=== PATIENT | female | born 1935 | race Caucasian/White ===

== ENCOUNTER 2017-05-28 15:38 | Observation (INO) | payer OTHER, MEDICARE ==
--- NOTE | 2017-05-28 15:50 | PDOC ---
History of Present Illness - History of Present Illness Initial Comments: 05/28/17 15:49 81 yo F with h/o HTN, HLD, HCV, prior GI hemorrhage (2015), and diverticulosis who presents with vertigo. Per patient she was walking downstairs and experienced episode of weakness, and swaying sensation with no LOC. She reports controlled fall to chair and controlled sliding to ground, where she layed there for 5 minutes before family arrived. States that she was disoriented and alert. Deny convulsions, tongue biting, LOC, urinary incontinence. Vertigo symptoms triggered with posterior head movement. Per patient family she has had increased confusion over the past two months and dark colored stools, and increased urination. Denies BRBPR.Deny N/V, fevers/chills, CP, SOB, diarrhea, constipation, FAITH, tinnitus,. Denies h/o CAD/CT, TIA/CVA, stent placement or CABG. Normally ambulates with walker and assistance with recent change in gait. On iron supplementation. <Praveen Vaughn - Last Filed: 05/28/17 19:33> <Jeffry Roberts - Last Filed: 05/28/17 19:51> <Alexandru Vergara - Last Filed: 05/28/17 21:48> - General Chief Complaint: Altered Mental Status Stated Complaint: ALTERED MENTAL STATUS Time Seen by Provider: 05/28/17 15:44 Past History - Past Medical History Anemia: Yes Asthma: Yes (MILD) Cancer: No Cardiac Disorders: No CVA: No COPD: No CHF: No Dementia: No Diabetes: No GI Disorders: Yes (REFLUX) Disorders: No HTN: Yes Hypercholesterolemia: Yes Liver Disease: Yes (HEPATITIS -C) Seizures: No Thyroid Disease: Yes (removed) - Surgical History Abdominal Surgery: No Appendectomy: Yes Cardiac Surgery: No Cholecystectomy: No Lung Surgery: No Neurologic Surgery: Yes (EPIDURAL-CRANIOTOMY) Orthopedic Surgery: Yes (ARTHROSCOPY RIGHT KNEE) - Immunization History Td Vaccination: No (unknown) TDAP Vaccination: No Immunization Up to Date: No - Suicide/Smoking/Psychosocial Hx Smoking Status: No Smoking History: Never smoked Years of Tobacco Use: 0 Number of Cigarettes Smoked Daily: 0 Cigars Per Day: 0 Hx Alcohol Use: No Drug/Substance Use Hx: No Substance Use Type: None Hx Substance Use Treatment: No <Praveen Vaughn - Last Filed: 05/28/17 19:33> <Jeffry Roberts - Last Filed: 05/28/17 19:51> <Alexandru Vergara - Last Filed: 05/28/17 21:48> - Past Medical History Allergies/Adverse Reactions: Allergies Allergy/AdvReac Type Severity Reaction Status Date / Time Penicillins Allergy Unknown Verified 05/28/17 15:53 codeine [Codeine] Allergy Verified 05/28/17 15:53 Home Medications: Ambulatory Orders Simvastatin [Zocor] 20 mg PO HS #0 tablet 06/03/11 Fluticasone/Vilanterol [Breo Ellipta 100-25 Mcg INH] 1 each IH DAILY 12/02/15 Valsartan [Diovan] 40 mg PO DAILY #30 tablet 12/05/15 Potassium Chloride 20 meq PO BID 03/05/16 Review of Systems - Review of Systems Comments:: 05/28/17 15:48 GENERAL/CONSTITUTIONAL: Confusion. No fever or chills. No weakness. HEAD, EYES, EARS, NOSE AND THROAT: No change in vision. No ear pain or discharge. No sore throat.- CARDIOVASCULAR: No chest pain or shortness of breath RESPIRATORY: No cough, wheezing, or hemoptysis. GASTROINTESTINAL: No nausea, vomiting, diarrhea or constipation. GENITOURINARY: Increased urination. No dysuria. MUSCULOSKELETAL: No joint or muscle swelling or pain. No neck or back pain. SKIN: No rash NEUROLOGIC: +vertigo. No headache, loss of consciousness, or change in strength /sensation. ENDOCRINE: No increased thirst. No abnormal weight change HEMATOLOGIC/LYMPHATIC: No anemia, easy bleeding, or history of blood clots. ALLERGIC/IMMUNOLOGIC: No hives or skin allergy. <Maldonado Vaughnson - Last Filed: 05/28/17 19:33> *Physical Exam - Physical Exam Comments: 05/28/17 15:48 GENERAL: Awake, alert, and fully oriented, in no acute distress HEAD: No signs of trauma, normocephalic, atraumatic EYES: PERRLA, EOMI, sclera anicteric, conjunctiva clear ENT: Auricles normal inspection, hearing grossly normal, nares patent, oropharynx clear without exudates. Moist mucosa NECK: Normal ROM, supple, no lymphadenopathy, JVD, or masses LUNGS: No distress, speaks full sentences, clear to auscultation bilaterally HEART: Regular rate and rhythm, normal S1 and S2, no murmurs, rubs or gallops, peripheral pulses normal and equal bilaterally. ABDOMEN: Soft, nontender, normoactive bowel sounds. No guarding, no rebound. No masses EXTREMITIES : Normal inspection, Normal range of motion, no edema. No clubbing or cyanosis. NEUROLOGICAL: Cranial nerves II through XII grossly intact. Normal speech, normal gait, no focal sensorimotor deficits. Normal TONY. Absent dysmetria on FTN. SKIN: Warm, Dry, normal turgor, no rashes or lesions noted. <Praveen Vaughn - Last Filed: 05/28/17 19:33> - Vital Signs Last Vital Signs Temp Pulse Resp BP Pulse Ox 98.7 F 87 17 169/95 100 05/28/17 16:04 05/28/17 19:12 05/28/17 19:12 05/28/17 19:12 05/28/17 19:12 <Jeffry Roberts - Last Filed: 05/28/17 19:51> - Vital Signs Last Vital Signs Temp Pulse Resp BP Pulse Ox 98.7 F 87 17 165/90 100 05/28/17 16:04 05/28/17 19:12 05/28/17 19:12 05/28/17 20:00 05/28/17 19:12 <Alexandru Vergara - Last Filed: 05/28/17 21:48> ED Treatment Course - LABORATORY CBC & Chemistry Diagram: 05/28/17 17:00 05/28/17 17:00 <Praveen Vaughn - Last Filed: 05/28/17 19:33> - LABORATORY CBC & Chemistry Diagram: 05/28/17 17:00 05/28/17 17:00 - ADDITIONAL ORDERS Additional order review: Laboratory Results 05/28/17 05/28/17 05/28/17 17:50 17:00 17:00 PT with INR INR Sodium 135 L Potassium 4.3 Chloride 101 Carbon Dioxide 26 Anion Gap 8 BUN 10 Creatinine 0.8 Creat Clearance w eGFR > 60 POC Glucometer Random Glucose 98 Calcium 9.1 Total Bilirubin 0.4 D AST 12 L ALT 27 Alkaline Phosphatase 82 Total Protein 7.9 Albumin 3.9 Urine Color Yellow Urine Appearance Slcloudy Urine pH 5.0 Ur Specific [place] 1.017 Urine Protein Negative Urine Glucose (UA) Negative Urine Ketones Negative Urine Blood 1+ H Urine Nitrite Negative Urine Bilirubin Negative Urine Urobilinogen Negative Ur Leukocyte Esterase Negative Urine WBC (Auto) 3 Urine RBC (Auto) 1 Ur Epithelial Cells Few Urine Bacteria Few Urine Mucus Few Stool Occult Blood Blood Type O NEGATIVE Antibody Screen Negative 05/28/17 05/28/17 05/28/17 17:00 16:45 15:48 PT with INR 11.70 INR 1.04 Sodium Potassium Chloride Carbon Dioxide Anion Gap BUN Creatinine Creat Clearance w eGFR POC Glucometer [id number] Random Glucose Calcium Total Bilirubin AST ALT Alkaline Phosphatase Total Protein Albumin Urine Color Urine Appearance Urine pH Ur Specific [place] Urine Protein Urine Glucose (UA) Urine Ketones Urine Blood Urine Nitrite Urine Bilirubin Urine Urobilinogen Ur Leukocyte Esterase Urine WBC (Auto) Urine RBC (Auto) Ur Epithelial Cells Urine Bacteria Urine Mucus Stool Occult Blood Negative Blood Type Antibody Screen 05/28/17 05/28/17 17:00 15:48 RBC 5.01 MCV 88.0 MCHC 32.6 RDW 17.4 H D MPV 7.9 Neutrophils % 72.7 D Lymphocytes % 17.0 D Monocytes % 9.1 Eosinophils % 0.4 D Basophils % 0.8 POC Glucometer [phone] - Medications Given in the ED: ED Medications Discontinued Medications Generic Name Dose Route Start Last Admin Trade Name Lewisq PRN Reason Stop Dose Admin Amlodipine Besylate 10 mg 05/28/17 17:34 05/28/17 17:51 Norvasc - PO 05/28/17 17:35 10 mg ONCE ONE Administration Labetalol HCl 100 mg 05/28/17 18:09 05/28/17 19:12 Normodyne - PO 05/28/17 18:10 100 mg ONCE ONE Administration Meclizine HCl 25 mg 05/28/17 16:14 05/28/17 16:17 Antivert - PO 05/28/17 16:15 25 mg ONCE ONE Administration <Jeffry Roberts - Last Filed: 05/28/17 19:51> - LABORATORY CBC & Chemistry Diagram: 05/28/17 17:00 05/28/17 17:00 - ADDITIONAL ORDERS Additional order review: Laboratory Results 05/28/17 05/28/17 05/28/17 20:00 17:50 17:00 PT with INR INR Sodium Potassium Chloride Carbon Dioxide Anion Gap BUN Creatinine Creat Clearance w eGFR POC Glucometer Random Glucose Calcium Magnesium 2.0 Total Bilirubin AST ALT Alkaline Phosphatase Total Protein Albumin Triglycerides 111 Cholesterol 163 Total LDL Cholesterol 104 H HDL Cholesterol 43 Urine Color Yellow Urine Appearance Slcloudy Urine pH 5.0 Ur Specific [place] 1.017 Urine Protein Negative Urine Glucose (UA) Negative Urine Ketones Negative Urine Blood 1+ H Urine Nitrite Negative Urine Bilirubin Negative Urine Urobilinogen Negative Ur Leukocyte Esterase Negative Urine WBC (Auto) 3 Urine RBC (Auto) 1 Ur Epithelial Cells Few Urine Bacteria Few Urine Mucus Few Stool Occult Blood Blood Type O NEGATIVE Antibody Screen Negative 05/28/17 05/28/17 05/28/17 17:00 17:00 16:45 PT with INR 11.70 INR 1.04 Sodium 135 L Potassium 4.3 Chloride 101 Carbon Dioxide 26 Anion Gap 8 BUN 10 Creatinine 0.8 Creat Clearance w eGFR > 60 POC Glucometer Random Glucose 98 Calcium 9.1 Magnesium Total Bilirubin 0.4 D AST 12 L ALT 27 Alkaline Phosphatase 82 Total Protein 7.9 Albumin 3.9 Triglycerides Cholesterol Total LDL Cholesterol HDL Cholesterol Urine Color Urine Appearance Urine pH Ur Specific [place] Urine Protein Urine Glucose (UA) Urine Ketones Urine Blood Urine Nitrite Urine Bilirubin Urine Urobilinogen Ur Leukocyte Esterase Urine WBC (Auto) Urine RBC (Auto) Ur Epithelial Cells Urine Bacteria Urine Mucus Stool Occult Blood Negative Blood Type Antibody Screen 05/28/17 15:48 PT with INR INR Sodium Potassium Chloride Carbon Dioxide Anion Gap BUN Creatinine Creat Clearance w eGFR POC Glucometer [phone] Random Glucose Calcium Magnesium Total Bilirubin AST ALT Alkaline Phosphatase Total Protein Albumin Triglycerides Cholesterol Total LDL Cholesterol HDL Cholesterol Urine Color Urine Appearance Urine pH Ur Specific [place] Urine Protein Urine Glucose (UA) Urine Ketones Urine Blood Urine Nitrite Urine Bilirubin Urine Urobilinogen Ur Leukocyte Esterase Urine WBC (Auto) Urine RBC (Auto) Ur Epithelial Cells Urine Bacteria Urine Mucus Stool Occult Blood Blood Type Antibody Screen 05/28/17 05/28/17 17:00 15:48 RBC 5.01 MCV 88.0 MCHC 32.6 RDW 17.4 H D MPV 7.9 Neutrophils % 72.7 D Lymphocytes % 17.0 D Monocytes % 9.1 Eosinophils % 0.4 D Basophils % 0.8 POC Glucometer [id number] - Medications Given in the ED: ED Medications Discontinued Medications Generic Name Dose Route Start Last Admin Trade Name Freq PRN Reason Stop Dose Admin Amlodipine Besylate 10 mg 05/28/17 17:34 05/28/17 17:51 Norvasc - PO 05/28/17 17:35 10 mg ONCE ONE Administration Labetalol HCl 100 mg 05/28/17 18:09 05/28/17 19:12 Normodyne - PO 05/28/17 18:10 100 mg ONCE ONE Administration Meclizine HCl 25 mg 05/28/17 16:14 05/28/17 16:17 Antivert - PO 05/28/17 16:15 25 mg ONCE ONE Administration Valsartan 40 mg 05/28/17 19:30 05/28/17 20:00 Diovan - PO 05/28/17 19:31 40 mg ONCE ONE Administration <Alexandru Vergara - Last Filed: 05/28/17 21:48> Medical Decision Making - Medical Decision Making 05/28/17 16:33 81 yo F with h/o HTN, HLD, HCV, prior GI hemorrhage (2014), and diverticulosis who presents with vertiginous episode and controlled fall following ambulation down stairs.Pt. describes episode of weakness, and swaying sensation with no asx. LOC. Family reports change in mental status/disorientation upon arriving to patient laying on floor. Deny convulsions, tongue biting, LOC, urinary incontinence. + increased confusion over the past two months, dark colored stools, and increased urination.Deny N/V, fevers/chills, CP, SOB, BRBPR, diarrhea, constipation, FAITH, tinnitus. Denies h/o CAD/CT, TIA/CVA, stent placement or CABG. On iron supplementation. Physical exam with no focal neurological deficits, or nystagmus and normal cardiac/pulmonary findings. Patient arrives hypertensive with BP 193/126. Possible causes of Pt. AMS and worsening vertigo include electrolyte abnormality, hypoglycemia, cystitis, acute blood loss anemia/GI bleed. Moderate suspicion of central cause of vertigo such as CVA/TIA d/t acute and prolonged confusion, and risk factors. ED course: CBC, CMP, UA, Cardiac Pro, FOBT EKG CXR Norvasc 10 mg. 05/28/17 17:25 NIHSS:0 05/28/17 17:38 CBC: Unremarkable 05/28/17 17:38 POC Glucose: 157 05/28/17 18:11 CMP: Unremarkable FOBT:Negative UA: Negative 05/28/17 18:57 CT HEAD: Unremarkable. No acute intracranial pathology. Will admit to tele/obs. <Praveen Vaughn - Last Filed: 05/28/17 19:33> - Medical Decision Making 05/28/17 21:[address] Bettina Santillan regarding this patient. <Alexandru Vergara - Last Filed: 05/28/17 21:48> *DC/Admit/Observation/Transfer - Discharge Dispostion Admit: Yes <Praveen Vaughn - Last Filed: 05/28/17 19:33> - Discharge Dispostion Admit: Yes <Jeffry Roberts - Last Filed: 05/28/17 19:51> <Alexandru Vergara - Last Filed: 05/28/17 21:48> Diagnosis at time of Disposition: Syncope Qualifiers: Syncope type: unspecified Qualified Code(s): R55 - Syncope and collapse - Referrals Referrals: Michael Mariano MD [Primary Care Provider] -
[2017-05-28] MEDS ORDERED: MECLIZINE HCL 25 MG TABLET (FP) PO ONE (16:14)
[2017-05-28] MEDS ORDERED: MECLIZINE HCL 25 MG TABLET (FP) ONE (16:19)
[2017-05-28 17:07] LABS: BASO % 0.8 % (0-2.0); EOS % 0.4 % (0-4.5); HEMATOCRIT 44.1 % (32.4-45.2); HEMOGLOBIN 14.4 GM/dL (10.7-15.3); MCH 28.7 pg (25.7-33.7); MCHC 32.6 g/dl (32.0-36.0); MEAN PLT VOLUME 7.9 fl (7.5-11.1); MONO % 9.1 % (3.8-10.2); NEUT % 72.7 % (42.8-82.8); PLATELET COUNT 274 K/MM3 (134-434); RBC 5.01 M/mm3 (3.60-5.2); RDW 17.4 % (11.6-15.6)
--- NOTE | 2017-05-28 17:17 | PDOC ---
Attending Attestation - Resident Resident Name: RoderickPraveen - HPI HPI: 05/28/17 17:19 Pt presents to the ED complaining of an episode of generalized weakness accompanied by confusion. Patient and her report that she was awake, but was unable to repeat her children's names. She was able to speak and did not seem to have other word finding difficulties, although her also reports that she was briefly slurring her speech. Patient does not appear to have had any focal weakness. Symptoms resolved spontaneously in the ambulance. - Physicial Exam PE: 05/28/17 17:27 Agree with resident exam. PAtient appears neurologically intact at this time, and is alert, oriented x 3 and speaking in complete sentences with fluent, clear speech. - Medical Decision Making 05/28/17 17:27 Pt presents to the ED complaining of an episode of confusion
[2017-05-28 17:30] LABS: ALBUMIN 3.9 g/dl (3.4-5.0); ANION GAP 8 (8-16); BILIRUBIN,TOTAL 0.4 mg/dL (0.2-1.0); BLOOD UREA NITROGEN 10 mg/dL (7-18); CALCIUM 9.1 mg/dL (8.5-10.1); CHLORIDE 101 mmol/L (98-107); CO2 26 mmol/L (21-32); CREATININE 0.8 mg/dL (0.55-1.02); GLUCOSE,RANDOM 98 mg/dL (74-106); POTASSIUM 4.3 mmol/L (3.5-5.1); SGOT/AST 12 U/L (15-37); SGPT/ALT 27 U/L (12-78); SODIUM 135 mmol/L (136-145)
[2017-05-28 17:31] LABS: ALK PHOS 82 U/L (45-117); TOT PROT 7.9 g/dl (6.4-8.2)
[2017-05-28 17:32] LABS: INR 1.04 (0.82-1.09); PROTHROMBIN TIME (PATIENT) 11.7 SEC (9.98-11.88)
[2017-05-28] MEDS ORDERED: amLODIPine BESYLATE 10 MG TABLET (FP) PO ONE (17:34)
[2017-05-28] MEDS ORDERED: amLODIPine BESYLATE 5 MG TABLET (FP) ONE (17:52)
[2017-05-28 18:00] LABS: URINE APPEARANCE SLCLOUDY; URINE BILIRUBIN NEGATIVE (NEGATIVE); URINE BLOOD 1+ (NEGATIVE); URINE COLOR YELLOW; URINE GLUCOSE (UA) NEGATIVE (NEGATIVE); URINE KETONE NEGATIVE (NEGATIVE); URINE LEUK ESTERASE NEGATIVE (NEGATIVE); URINE NITRITE NEGATIVE (NEGATIVE); URINE PROTEIN NEGATIVE (NEGATIVE); URINE UROBILINOGEN NEGATIVE mg/dL (0.2-1.0)
[2017-05-28 18:06] LABS: EPI CELLS FEW /HPF (FEW); URINE BACTERIA FEW /hpf (NONE SEEN); URINE MUCUS FEW
[2017-05-28] MEDS ORDERED: LABETALOL HCL 100 MG TABLET (FP) PO ONE (18:09)
[2017-05-28] MEDS ORDERED: VALSARTAN 40 MG TABLET (FP) PO ONE (19:30)
[2017-05-28] MEDS ORDERED: VALSARTAN 80 MG TABLET (UD) ONE (19:44)
[2017-05-28] MEDS ORDERED: ACETAMINOPHEN 325 MG TABLET (FP) PO PRN (19:57)
[2017-05-28] MEDS ORDERED: ONDANSETRON *ODT* 4 MG TABLET ONE (21:58)
[2017-05-28] MEDS: POTASSIUM CHLORIDE TABS 20 MEQ TABLET.ER (FP) PO SCH (22:08)
[2017-05-28] MEDS: ATORVASTATIN CA 10 MG TABLET (FP) PO SCH (22:09)
[2017-05-28] MEDS ORDERED: ATORVASTATIN CA 40 MG TABLET (FP) ONE (22:34)
[2017-05-28] MEDS ORDERED: POTASSIUM CHLORIDE TABS 20 MEQ TABLET.ER (FP) PO ONE (22:34)
[2017-05-28] MEDS ORDERED: ONDANSETRON 4 MG/2 ML VIAL IVPUSH ONE (22:37)
[2017-05-29 09:15] LABS: BASO % 0.6 % (0-2.0); EOS % 1.1 % (0-4.5); HEMATOCRIT 40.9 % (32.4-45.2); HEMOGLOBIN 13.3 GM/dL (10.7-15.3); LYMPH % 31.6 % (8-40); MCH 28.7 pg (25.7-33.7); MCHC 32.6 g/dl (32.0-36.0); MEAN PLT VOLUME 7.9 fl (7.5-11.1); MONO % 11.9 % (3.8-10.2); NEUT % 54.8 % (42.8-82.8); PLATELET COUNT 266 K/MM3 (134-434); RBC 4.65 M/mm3 (3.60-5.2); RDW 18.4 % (11.6-15.6); WHITE BLOOD COUNT 6.7 K/mm3 (4.0-10.0)
[2017-05-29 09:35] LABS: ANION GAP 9 (8-16); BLOOD UREA NITROGEN 9 mg/dL (7-18); CALCIUM 8.7 mg/dL (8.5-10.1); CHLORIDE 101 mmol/L (98-107); CO2 26 mmol/L (21-32); GLUCOSE,RANDOM 98 mg/dL (74-106); POTASSIUM 4.1 mmol/L (3.5-5.1); SODIUM 136 mmol/L (136-145)
[2017-05-29 09:47] LABS: CREATININE 0.7 mg/dL (0.55-1.02)
[2017-05-29] MEDS ORDERED: VALSARTAN 40 MG TABLET (FP) PO SCH (10:00)
[2017-05-29] MEDS: POTASSIUM CHLORIDE TABS 20 MEQ TABLET.ER (FP) PO SCH ×2 (12:05→22:24)
--- NOTE | 2017-05-29 12:32 | CONSULT ---
Consult - text type - Consultation Consultation Note: Neurology History of Present Illness 81 yo F with h/o HTN, HLD, HCV, prior GI hemorrhage (2015), and diverticulosis who presents with vertigo. Per notes, patient she was walking downstairs and experienced episode of weakness, and swaying sensation with no LOC. She reports controlled fall to chair and controlled sliding to ground, where she layed there for 5 minutes before family arrived. States that she was disoriented and alert. Deny convulsions, tongue biting, LOC, urinary incontinence. Vertigo symptoms triggered with posterior head movement. Per patient family she has had increased confusion over the past two months and dark colored stools, and increased urination. Denies BRBPR. She feels better today but does not feel fully well yet. CT head completed, awaiting final read. Will obtain MRI brain to rule out infarct. Discussed with family at bedside and in agreement. Past History - Past Medical History Anemia: Yes Asthma: Yes (MILD) Cancer: No Cardiac Disorders: No CVA: No COPD: No CHF: No Dementia: No Diabetes: No GI Disorders: Yes (REFLUX) Disorders: No HTN: Yes Hypercholesterolemia: Yes Liver Disease: Yes (HEPATITIS -C) Seizures: No Thyroid Disease: Yes (removed) - Surgical History Abdominal Surgery: No Appendectomy: Yes Cardiac Surgery: No Cholecystectomy: No Lung Surgery: No Neurologic Surgery: Yes (EPIDURAL-CRANIOTOMY) Orthopedic Surgery: Yes (ARTHROSCOPY RIGHT KNEE) - Immunization History Td Vaccination: No (unknown) TDAP Vaccination: No Immunization Up to Date: No - Suicide/Smoking/Psychosocial Hx Smoking Status: No Smoking History: Never smoked Years of Tobacco Use: 0 Number of Cigarettes Smoked Daily: 0 Cigars Per Day: 0 Hx Alcohol Use: No Drug/Substance Use Hx: No Substance Use Type: None Hx Substance Use Treatment: No - Past Medical History Allergies/Adverse Reactions: Allergies Allergy/AdvReac Type Severity Reaction Status Date / Time Penicillins Allergy Unknown Verified 05/28/17 15:53 codeine [Codeine] Allergy Verified 05/28/17 15:53 Home Medications: Ambulatory Orders Simvastatin [Zocor] 20 mg PO HS #0 tablet 06/03/11 Fluticasone/Vilanterol [Breo Ellipta 100-25 Mcg INH] 1 each IH DAILY 12/02/15 Valsartan [Diovan] 40 mg PO DAILY #30 tablet 12/05/15 Potassium Chloride 20 meq PO BID 03/05/16 Review of Systems 05/28/17 15:48 GENERAL/CONSTITUTIONAL: Confusion. No fever or chills. No weakness. HEAD, EYES, EARS, NOSE AND THROAT: No change in vision. No ear pain or discharge. No sore throat.- CARDIOVASCULAR: No chest pain or shortness of breath RESPIRATORY: No cough, wheezing, or hemoptysis. GASTROINTESTINAL: No nausea, vomiting, diarrhea or constipation. GENITOURINARY: Increased urination. No dysuria. MUSCULOSKELETAL: No joint or muscle swelling or pain. No neck or back pain. SKIN: No rash NEUROLOGIC: +vertigo. No headache, loss of consciousness, or change in strength /sensation. ENDOCRINE: No increased thirst. No abnormal weight change HEMATOLOGIC/LYMPHATIC: No anemia, easy bleeding, or history of blood clots. ALLERGIC/IMMUNOLOGIC: No hives or skin allergy. *Physical Exam Vital Signs Period Temp Pulse Resp BP Sys/[place] Pulse Ox Last 24 Hr 98.7 F-98.7 F 65-87 17-22 105-199/72-126 96-100 GENERAL: Awake, alert, and fully oriented, in no acute distress HEAD: No signs of trauma, normocephalic, atraumatic EYES: PERRLA, EOMI, sclera anicteric, conjunctiva clear ENT: Auricles normal inspection, hearing grossly normal, nares patent, oropharynx clear without exudates. Moist mucosa NECK: Normal ROM, supple, no lymphadenopathy, JVD, or masses LUNGS: No distress, speaks full sentences, clear to auscultation bilaterally HEART: Regular rate and rhythm, normal S1 and S2, no murmurs, rubs or gallops, peripheral pulses normal and equal bilaterally. ABDOMEN: Soft, nontender, normoactive bowel sounds. No guarding, no rebound. No masses EXTREMITIES : Normal inspection, Normal range of motion, no edema. No clubbing or cyanosis. NEUROLOGICAL: Cranial nerves II through XII grossly intact. Normal speech, normal gait, no focal sensorimotor deficits. Normal TONY. Absent dysmetria on FTN. SKIN: Warm, Dry, normal turgor, no rashes or lesions noted. CBCD WBC 6.7 K/mm3 (4.0-10.0) 05/29/17 07:14 RBC 4.65 M/mm3 (3.60-5.2) 05/29/17 07:14 Hgb 13.3 GM/dL (10.7-15.3) 05/29/17 07:14 Hct 40.9 % (32.4-45.2) 05/29/17 07:14 MCV 88.0 fl (80-96) 05/29/17 07:14 MCHC 32.6 g/dl (32.0-36.0) 05/29/17 07:14 RDW 18.4 % (11.6-15.6) H 05/29/17 07:14 Plt Count 266 K/MM3 (134-434) 05/29/17 07:14 MPV 7.9 fl (7.5-11.1) 05/29/17 07:14 CMP Sodium 136 mmol/L (136-145) 05/29/17 07:14 Potassium 4.1 mmol/L (3.5-5.1) 05/29/17 07:14 Chloride 101 mmol/L (98-107) 05/29/17 07:14 Carbon Dioxide 26 mmol/L (21-32) 05/29/17 07:14 Anion Gap 9 (8-16) 05/29/17 07:14 BUN 9 mg/dL (7-18) 05/29/17 07:14 Creatinine 0.7 mg/dL (0.55-1.02) 05/29/17 07:14 Creat Clearance w eGFR > 60 (>60) 05/28/17 17:00 Calcium 8.7 mg/dL (8.5-10.1) 05/29/17 07:14 Total Bilirubin 0.4 mg/dL (0.2-1.0) D 05/28/17 17:00 AST 12 U/L (15-37) L 05/28/17 17:00 ALT 27 U/L (12-78) 05/28/17 17:00 Alkaline Phosphatase 82 U/L (45-117) 05/28/17 17:00 Total Protein 7.9 g/dl (6.4-8.2) 05/28/17 17:00 Albumin 3.9 g/dl (3.4-5.0) 05/28/17 17:00 CT head images reviewed, awaiting read Medical Decision Making 81 yo F with h/o HTN, HLD, HCV, prior GI hemorrhage (2015), and diverticulosis who presents with vertigo. Per notes, patient she was walking downstairs and experienced episode of weakness, and swaying sensation with no LOC. She reports controlled fall to chair and controlled sliding to ground, where she layed there for 5 minutes before family arrived. States that she was disoriented and alert. Deny convulsions, tongue biting, LOC, urinary incontinence. Vertigo symptoms triggered with posterior head movement. Per patient family she has had increased confusion over the past two months and dark colored stools, and increased urination. Denies BRBPR. She feels better today but does not feel fully well yet. CT head completed, awaiting final read. Will obtain MRI brain to rule out infarct. Discussed with family at bedside and in agreement Monitor BP, hypertensive on admission Goal < 140/90, can allow up to 160 Tele monitoring Cardiology evaluation Can give meclezine, low dose for dizzyness, as needed, will order Maintain hydration Fall precautions
[2017-05-29] MEDS ORDERED: MECLIZINE HCL 12.5 MG TABLET PO PRN (12:33)
--- NOTE | 2017-05-29 12:56 | EKG ---
Test Reason : Blood Pressure : / mmHG Vent. Rate : 086 BPM Atrial Rate : 086 BPM P-R Int : 120 ms QRS Dur : 072 ms QT Int : 362 ms P-R-T Axes : 031 002 046 degrees QTc Int : 433 ms NORMAL SINUS RHYTHM NONSPECIFIC ST AND T WAVE ABNORMALITY ABNORMAL ECG WHEN COMPARED WITH ECG OF 05-MAR-2016 19:45, NON-SPECIFIC CHANGE IN ST SEGMENT IN INFERIOR LEADS T WAVE AMPLITUDE HAS DECREASED IN ANTERIOR LEADS Confirmed by Greg Cartwright [id number]) on 05/29/2017 12:56:38 PM Referred By: Confirmed By:Greg Cartwright
[2017-05-29] MEDS ORDERED: ONDANSETRON 4 MG/2 ML VIAL IVPUSH ONE ×2 (13:05→13:18)
[2017-05-29] MEDS ORDERED: ONDANSETRON 4 MG/2 ML VIAL ONE (13:11)
--- NOTE | 2017-05-29 14:13 | HP ---
Admitting History and Physical - Primary Care Physician PCP: Michael Mariano - Admission Chief Complaint: Episode of Dizziness with weakness History of Present Illness: 81 yrs old F lives at home with H/O Asthma, High Cholesterol, HTN, GERD , Hiatal Hernia, Recurrent GI Bleed H/O Diverticulosis and Rt Colonic angiodyplesia previously admitted with Melena in 2014 worked up on PPI, yesterday present after an episode of vertigo with generalised weakness, [place]ocited plapitation, chest pain, felt nausea, patient positioned herself on the floor and called for help, found her on the floor, alert but some disorientation , forgetting name of children, 911 was brought to Ed for evaluation, no associated chest pain, seizure activity or incontinence today BP recorded low. CBC, BMP, CE EKG unremarkable. 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 No: CAD Pulmonary: Yes: Asthma Gastrointestinal: Yes: Diverticulosis, GERD, GI Bleed, Hemorrhoids, Hiatal Hernia, Other (right colon angiodysplasia, colon adenomas, gastric fundic gland and hyperplastic polyps) Hepatobiliary: Yes: Hepatitis C (never treated ) Heme/Onc: Yes: Anemia Musculoskeletal: Yes: Osteoarthritis, Other (osteoporosis) Endocrine: Yes: Other (thyroid cancer surgery) - Past Surgical History Past Surgical History: Yes: Appendectomy, Colonoscopy (colon adenomas removed, diverticulosis and right colon AVM seen), Craniotomy (for menongioma), Hysterectomy, Upper Endoscopy (gastric polyps removed) - Smoking History Smoking history: Never smoked Have you smoked in the past 12 months: No Aproximately how many cigarettes per day: 0 - Alcohol/Substance Use Hx Alcohol Use: No History of Substance Use: reports: None - Social History ADL: Independent History of Recent Travel: No Home Medications - Allergies Allergies/Adverse Reactions: Allergies Allergy/AdvReac Type Severity Reaction Status Date / Time Penicillins Allergy Unknown Verified 05/28/17 15:53 codeine [Codeine] Allergy Verified 05/28/17 15:53 - Home Medications Home Medications: Ambulatory Orders Simvastatin [Zocor] 20 mg PO HS #0 tablet 06/03/11 Fluticasone/Vilanterol [Breo Ellipta 100-25 Mcg INH] 1 each IH DAILY 12/02/15 Valsartan [Diovan] 40 mg PO DAILY #30 tablet 12/05/15 Potassium Chloride 20 meq PO BID 03/05/16 Family Disease History - Family Disease History Family Disease History: Other: Grandparent (cervcal ca), Father ( 94 with cva), Mother (HTN, 90) Review of Systems - Review of Systems Constitutional: denies: Chills, Diaphoresis HENT: denies: Difficult Swallowing, Ear Discharge Neck: denies: Decreased ROM, Lumps Cardiovascular: denies: Chest Pain, Edema, Palpitations, Shortness of Breath Respiratory: denies: Cough, Exercise Intolerance Gastrointestinal: denies: Abdominal Pain, Bloating, Constipation, Rectal Bleeding Musculoskeletal: reports: Back Pain Integumentary: denies: Blister, Bruising Neurological: reports: Change in LOC, Confusion, Dizziness. denies: Change in Speech Endocrine: reports: Flushing, Increased Hunger, Intolerance to Cold. denies: Excessive Sweating Hematology/Lymphatic: denies: Easily Bruised, Excessive Bleeding Psychiatric: denies: Altered Sleep Pattern Physical Examination Vital Signs: Vital Signs Temperature 98 F 05/29/17 12:47 Pulse Rate 75 05/29/17 13:24 Respiratory Rate 16 05/29/17 13:24 Blood Pressure 84/62 05/29/17 13:24 O2 Sat by Pulse Oximetry (%) 100 05/29/17 13:24 Elderly F not in acute distress c/o nausea HEENT; mm moist, no anemia, PERRLA EOMI NECK: No JVd No Bruit CHEST: CTA B/L CVS: S1S2 R no m/g/r ABD: No distention, non tender Bs + EXT; trace edema gfeet, no calf tenderness HIGH LIGHTER: AOX3 Normal Cranial N No Nystagmus No Motor sensory deficit Reflexes Unremarkable Labs: CBC, BMP 05/29/17 07:14 05/29/17 07:14 Laboratory Results - last 24 hr 05/28/17 05/28/17 05/28/17 15:48 16:45 17:00 WBC 8.0 D RBC 5.01 Hgb 14.4 D Hct 44.1 D MCV 88.0 MCH 28.7 MCHC 32.6 RDW 17.4 H D Plt Count 274 MPV 7.9 Neutrophils % 72.7 D Lymphocytes % 17.0 D Monocytes % 9.1 Eosinophils % 0.4 D Basophils % 0.8 PT with INR INR Sodium Potassium Chloride Carbon Dioxide Anion Gap BUN Creatinine Creat Clearance w eGFR POC Glucometer [phone] Random Glucose Hemoglobin A1c % Calcium Magnesium Total Bilirubin AST ALT Alkaline Phosphatase Creatine Kinase Total Protein Albumin Triglycerides Cholesterol Total LDL Cholesterol HDL Cholesterol TSH Urine Color Urine Appearance Urine pH Ur Specific [place] Urine Protein Urine Glucose (UA) Urine Ketones Urine Blood Urine Nitrite Urine Bilirubin Urine Urobilinogen Ur Leukocyte Esterase Urine WBC (Auto) Urine RBC (Auto) Ur Epithelial Cells Urine Bacteria Urine Mucus Stool Occult Blood Negative Blood Type Antibody Screen 05/28/17 05/28/17 05/28/17 17:00 17:00 17:00 WBC RBC Hgb Hct MCV MCH MCHC RDW Plt Count MPV Neutrophils % Lymphocytes % Monocytes % Eosinophils % Basophils % PT with INR 11.70 INR 1.04 Sodium 135 L Potassium 4.3 Chloride 101 Carbon Dioxide 26 Anion Gap 8 BUN 10 Creatinine 0.8 Creat Clearance w eGFR > 60 POC Glucometer Random Glucose 98 Hemoglobin A1c % Calcium 9.1 Magnesium Total Bilirubin 0.4 D AST 12 L ALT 27 Alkaline Phosphatase 82 Creatine Kinase Total Protein 7.9 Albumin 3.9 Triglycerides Cholesterol Total LDL Cholesterol HDL Cholesterol TSH Urine Color Urine Appearance Urine pH Ur Specific [place] Urine Protein Urine Glucose (UA) Urine Ketones Urine Blood Urine Nitrite Urine Bilirubin Urine Urobilinogen Ur Leukocyte Esterase Urine WBC (Auto) Urine RBC (Auto) Ur Epithelial Cells Urine Bacteria Urine Mucus Stool Occult Blood Blood Type O NEGATIVE Antibody Screen Negative 05/28/17 05/28/17 05/29/17 17:50 20:00 07:14 WBC 6.7 RBC 4.65 Hgb 13.3 Hct 40.9 MCV 88.0 MCH 28.7 MCHC 32.6 RDW 18.4 H Plt Count 266 MPV 7.9 Neutrophils % 54.8 D Lymphocytes % 31.6 D Monocytes % 11.9 H Eosinophils % 1.1 D Basophils % 0.6 PT with INR INR Sodium Potassium Chloride Carbon Dioxide Anion Gap BUN Creatinine Creat Clearance w eGFR POC Glucometer Random Glucose Hemoglobin A1c % Calcium Magnesium 2.0 Total Bilirubin AST ALT Alkaline Phosphatase Creatine Kinase 57 Total Protein Albumin Triglycerides 111 Cholesterol 163 Total LDL Cholesterol 104 H HDL Cholesterol 43 TSH Urine Color Yellow Urine Appearance Slcloudy Urine pH 5.0 Ur Specific [place] 1.017 Urine Protein Negative Urine Glucose (UA) Negative Urine Ketones Negative Urine Blood 1+ H Urine Nitrite Negative Urine Bilirubin Negative Urine Urobilinogen Negative Ur Leukocyte Esterase Negative Urine WBC (Auto) 3 Urine RBC (Auto) 1 Ur Epithelial Cells Few Urine Bacteria Few Urine Mucus Few Stool Occult Blood Blood Type Antibody Screen 05/29/17 05/29/17 07:14 07:14 WBC RBC Hgb Hct MCV MCH MCHC RDW Plt Count MPV Neutrophils % Lymphocytes % Monocytes % Eosinophils % Basophils % PT with INR INR Sodium 136 Potassium 4.1 Chloride 101 Carbon Dioxide 26 Anion Gap 9 BUN 9 Creatinine 0.7 Creat Clearance w eGFR POC Glucometer Random Glucose 98 Hemoglobin A1c % 6.0 Calcium 8.7 Magnesium Total Bilirubin AST ALT Alkaline Phosphatase Creatine Kinase Total Protein Albumin Triglycerides Cholesterol Total LDL Cholesterol HDL Cholesterol TSH 1.47 Urine Color Urine Appearance Urine pH Ur Specific [place] Urine Protein Urine Glucose (UA) Urine Ketones Urine Blood Urine Nitrite Urine Bilirubin Urine Urobilinogen Ur Leukocyte Esterase Urine WBC (Auto) Urine RBC (Auto) Ur Epithelial Cells Urine Bacteria Urine Mucus Stool Occult Blood Blood Type Antibody Screen Imaging - Results Chest X-ray: Report Reviewed (No acute changes) Cat Scan: Report Reviewed (GHead unremarkable) EKG: Report Reviewed ([address] T changes) Problem List - Problems (1) Near syncope Assessment/Plan: Present wuith near syncope with vertigo , no associated chest poain or haed trauma some confusion, now hypotensive can be orthostatic or Neurocardiogenic, Neurology consult,Neuro check IV Hydration, Telemonitoring and ECHO , no cardiac symptoms considering advanced age and Neurology recommendations, will call cardiology. Code(s): R55 - SYNCOPE AND COLLAPSE (2) HTN (hypertension) Assessment/Plan: Low BP with hold Meds IV hydration resume once indicated Code(s): I10 - ESSENTIAL (PRIMARY) HYPERTENSION (3) Asthma Assessment/Plan: At present no active issue Code(s): J45.909 - UNSPECIFIED ASTHMA, UNCOMPLICATED (4) Angiodysplasia of colon Assessment/Plan: H?O angiodysplesia, at present no active bleeding. Code(s): K55.20 - ANGIODYSPLASIA OF COLON WITHOUT HEMORRHAGE (5) HLD (hyperlipidemia) Assessment/Plan: Cont Statin Code(s): E78.5 - HYPERLIPIDEMIA, UNSPECIFIED (6) Hypotension Assessment/Plan: Episode of Hypotention with nausea, no clinical sign of infection Stool occult blood -ve H/H stable cont PPI, F/U BP after Hydration. Code(s): I95.9 - HYPOTENSION, UNSPECIFIED
[2017-05-29] MEDS ORDERED: ONDANSETRON 4 MG/2 ML VIAL IVPUSH PRN (14:22)
[2017-05-29] MEDS ORDERED: SODIUM CHLORIDE 1,000 ML IV SCH (14:30)
[2017-05-29] MEDS ORDERED: FAMOTIDINE IV 20 MG/12 ML VIAL IVPUSH SCH (22:00)
[2017-05-29] MEDS: FAMOTIDINE 20 MG/50 ML IVPB 20 MG/50 ML MG IVPB SCH (22:24)
[2017-05-29] MEDS: ATORVASTATIN CA 10 MG TABLET (FP) PO SCH (22:24)
[2017-05-30 05:27] VITALS: BMI 27.6
--- NOTE | 2017-05-30 08:24 | CON.CARD ---
Consult Consult Specialty:: cardio Referred by:: hospitalist Reason for Consultation:: dizzy - History of Present Illness Chief Complaint: dizzy History of Present Illness: 81 yo F admitted with dizziness. while walking down the stairs to basement, she experienced an episode of weakness and swaying sensation. she positioned herself on a chair, then the floor and called for help-- found her on the floor, alert but some disorientation (forgetting name of children). family notes increased confusion over the past two months pt states she's had vertigo before and this didn't feel like that. thinks this episode felt more like presyncope/faint feeling. hasn't happened recently other than on DOA. had syncope around 1 and 2 yrs ago. admits to poor po fluids, drinks lots of pepsi during the day. denies any cp, palpitations, new neuro deficits with the episode yest in ER bp initially 193/126--normalized rapidly over next few hours. then next day (05/29), sbp to 88-90. she has received NO HTN MEDS HERE (on valsartan 40 only at home) MRI brain here unremarkable PMH: Asthma, High Cholesterol, HTN, GERD, Hiatal Hernia, Diverticulosis, colon angiodyplasia, Melena in 2014 worked up ? 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 No: CAD Pulmonary: Yes: Asthma Gastrointestinal: Yes: Diverticulosis, GERD, GI Bleed, Hemorrhoids, Hiatal Hernia, Other (right colon angiodysplasia, colon adenomas, gastric fundic gland and hyperplastic polyps) Hepatobiliary: Yes: Hepatitis C (never treated ) Musculoskeletal: Yes: Osteoarthritis, Other (osteoporosis) Endocrine: Yes: Other (thyroid cancer surgery) - Past Surgical History Past Surgical History: Yes: Appendectomy, Colonoscopy (colon adenomas removed, diverticulosis and right colon AVM seen), Craniotomy (for menongioma), Hysterectomy, Upper Endoscopy (gastric polyps removed) - Alcohol/Substance Use Hx Alcohol Use: No History of Substance Use: reports: None - Smoking History Smoking history: Never smoked Have you smoked in the past 12 months: No Aproximately how many cigarettes per day: 0 - Social History Usual Living Arrangement: With Spouse ADL: Independent History of Recent Travel: No Home Medications - Allergies Allergies/Adverse Reactions: Allergies Allergy/AdvReac Type Severity Reaction Status Date / Time Penicillins Allergy Unknown Verified 05/28/17 15:53 codeine [Codeine] Allergy Verified 05/28/17 15:53 - Home Medications Home Medications: Ambulatory Orders Simvastatin [Zocor] 20 mg PO HS #0 tablet 06/03/11 Fluticasone/Vilanterol [Breo Ellipta 100-25 Mcg INH] 1 each IH DAILY 12/02/15 Valsartan [Diovan] 40 mg PO DAILY #30 tablet 12/05/15 Potassium Chloride 20 meq PO BID 03/05/16 Family Disease History - Family Disease History Family Disease History: Other: Grandparent (cervcal ca), Father ( 94 with cva), Mother (HTN, 90) Review of Systems - Review of Systems Constitutional: denies: Chills, Fever Eyes: denies: Eye Pain HENT: denies: Nasal Congestion Neck: denies: Stiffness Cardiovascular: denies: Palpitations Respiratory: denies: Orthopnea, PND Gastrointestinal: denies: Diarrhea, Rectal Bleeding Genitourinary: denies: Burning, Hematuria Musculoskeletal: denies: Muscle Pain Integumentary: denies: Rash Neurological: denies: Numbness, Seizure, Syncope Endocrine: denies: Excessive Sweating Hematology/Lymphatic: denies: Excessive Bleeding Vital Signs: Vital Signs Temperature 97.6 F 05/30/17 06:00 Pulse Rate 67 05/30/17 06:00 Respiratory Rate 18 05/30/17 06:00 Blood Pressure 136/80 05/30/17 06:00 O2 Sat by Pulse Oximetry (%) 97 05/29/17 19:00 Constitutional: Yes: Well Nourished, No Distress Eyes: No: Sclera Icterus HENT: No: Nasal Congestion Neck: No: Decreased ROM Respiratory: Yes: CTA Bilaterally. No: Accessory Muscle Use, Rales, Wheezes Gastrointestinal: Yes: Normal Bowel Sounds. No: Distention, Hepatomegaly, Palpable Mass, Tenderness Cardiovascular: Yes: Regular Rate and Rhythm JVD: No Carotid Bruit: No PMI: Non-Displaced Heart Sounds: Yes: S1, S2. No: Gallop Murmur: No: Systolic Murmur, Diastolic Murmur Musculoskeletal: Yes: Other (No kyphosis) Extremities: No: Cold, Cyanosis Edema: No Peripheral Pulses: 2+ Left Carotid, 2+ Right Carotid, 2+ Left Doralis Pedis, 2+ Right Dorsalis Pedis Integumentary: No: Jaundice Neurological: Yes: Alert, Oriented (x3) Psychiatric: No: Agitated - Other Data Labs, Other Data: INR, PTT INR 1.04 (0.82-1.09) 05/28/17 17:00 Laboratory Tests 05/28/17 05/28/17 05/29/17 17:00 20:00 07:14 WBC 6.7 Hgb 13.3 Plt Count 266 Sodium Potassium Carbon Dioxide BUN Creatinine AST 12 L ALT 27 Albumin 3.9 Triglycerides 111 Cholesterol 163 Total LDL Cholesterol 104 H HDL Cholesterol 43 TSH 05/29/17 07:14 WBC Hgb Plt Count Sodium 136 Potassium 4.1 Carbon Dioxide 26 BUN 9 Creatinine 0.7 AST ALT Albumin Triglycerides Cholesterol Total LDL Cholesterol HDL Cholesterol TSH 1.47 tele: NSR, no bradyarrhythmia, artifact Assessment/Plan ECG x2: NSR, no path q's, no ST-T abn MRI brain: R temporal encephalomalacia, with prior craniotomy; no acute infarcts or bleed MPI 2015: no ischemia dizziness: -neuro input appreciated: triggerable vertigo-type sx's with head movement noted. MRI no acute infarct. prn meclizine ordered -? contribution of HTN urgency (as below) -however pt description is suspicious for possibility of orthostatic hypotension , with prior syncopal episodes in past. she thinks sx's were not like prior vertigo--? multi-factorial dizziness sx's. -needs orthostatic hypotension vitals prior to discharge (ordered) -tele WNL, if not orthostatic here, rec outpt event monitor -doubt atypical ACS sx. ecg non-ischemic, trop negative HTN urgency: -? triggered by anxiety regarding acute sx's at home, vs the cause of incr dizziness/weakness/confusion -bp quickly normalized here, and dipped to 88 systolic on HD #2 on its own (no meds given per JUL) -hold home valsartan 40 qd for now, observe BP trend -f/u orthostatic vitals check -TSH normal. check am cortisol (f/u value as outpt, if not back by time of discharge) HPL: -cont home meds
[2017-05-30 08:34] LABS: CHLORIDE 104 mmol/L (98-107); POTASSIUM 4.5 mmol/L (3.5-5.1); SODIUM 137 mmol/L (136-145)
[2017-05-30 08:36] LABS: EOS % 2.7 % (0-4.5); HEMATOCRIT 40.9 % (32.4-45.2); HEMOGLOBIN 13.3 GM/dL (10.7-15.3); LYMPH % 32.9 % (8-40); MCH 28.7 pg (25.7-33.7); MCHC 32.5 g/dl (32.0-36.0); MEAN CELL VOLUME 88.5 fl (80-96); MEAN PLT VOLUME 7.9 fl (7.5-11.1); MONO % 11.4 % (3.8-10.2); PLATELET COUNT 249 K/MM3 (134-434); RBC 4.62 M/mm3 (3.60-5.2); RDW 16.8 % (11.6-15.6); WHITE BLOOD COUNT 6.2 K/mm3 (4.0-10.0)
[2017-05-30 08:38] LABS: ANION GAP 7 (8-16); BLOOD UREA NITROGEN 14 mg/dL (7-18); CALCIUM 8.8 mg/dL (8.5-10.1); CO2 26 mmol/L (21-32); CREATININE 0.8 mg/dL (0.55-1.02); GLUCOSE,RANDOM 104 mg/dL (74-106)
[2017-05-30 09:30] LABS: CHOLESTEROL 125 mg/dL (50-200); HDL CHOLESTEROL 37 mg/dL (40-60); LDL CHOLESTEROL (ONLY SJRH) 80 mg/dL (5-100); TRIGLYCERIDES 105 mg/dL (35-160)
[2017-05-30 09:46] LABS: CHOLESTEROL 144 mg/dL (50-200); LDL CHOLESTEROL (ONLY SJRH) 96 mg/dL (5-100); TRIGLYCERIDES 103 mg/dL (35-160)
[2017-05-30 09:47] LABS: HDL CHOLESTEROL 38 mg/dL (40-60)
--- NOTE | 2017-05-30 09:53 | PN ---
Progress Note (short form) - Note Progress Note: Neurology History of Present Illness 81 yo F with h/o HTN, HLD, HCV, prior GI hemorrhage (2015), and diverticulosis who presents with vertigo. Per notes, patient she was walking downstairs and experienced episode of weakness, and swaying sensation with no LOC. She reports controlled fall to chair and controlled sliding to ground, where she layed there for 5 minutes before family arrived. States that she was disoriented and alert. Deny convulsions, tongue biting, LOC, urinary incontinence. Vertigo symptoms triggered with posterior head movement. Per patient family she has had increased confusion over the past two months and dark colored stools, and increased urination. Denies BRBPR. She feels better today but does not feel fully well yet. CT head completed, no acute changes noted. MRI also reviewed and no acute changes. Evidence of prior meningioma resection and encephalomalcia noted. Patient without complaints this AM and doing well. Active Medications Acetaminophen (Tylenol -) 650 mg PO Q6HPO PRN PRN Reason: PAIN Atorvastatin Calcium (Lipitor -) 10 mg PO HS [facility] Last Admin: 05/29/17 22:24 Dose: 10 mg Sodium Chloride (Normal Saline -) 1,000 mls @ 100 mls/hr IV ASDIR [facility] Last Admin: 05/29/17 13:24 Dose: 100 mls/hr Famotidine/Sodium Chloride (Pepcid 20 Mg Premixed Ivpb -) 20 mg in 50 mls @ 100 mls/hr IVPB BID [facility] Last Admin: 05/29/17 22:24 Dose: 100 mls/hr Meclizine HCl (Antivert -) 12.5 mg PO TID PRN PRN Reason: VERTIGO Non-Formulary Medication (Fluticasone/Vilanterol [Breo Ellipta 100-25 Mcg Inh]) 1 each IH DAILY [facility] Ondansetron HCl (Zofran Injection) 4 mg IVPUSH Q6H PRN PRN Reason: NAUSEA Potassium Chloride (K-Dur -) 20 meq PO BID [facility] Last Admin: 05/29/17 22:24 Dose: 20 meq *Physical Exam Vital Signs Temperature 97.6 F 05/30/17 06:00 Pulse Rate 67 05/30/17 06:00 Respiratory Rate 18 05/30/17 06:00 Blood Pressure 136/80 05/30/17 06:00 O2 Sat by Pulse Oximetry (%) 97 05/29/17 19:00 GENERAL: Awake, alert, and fully oriented, in no acute distress HEAD: No signs of trauma, normocephalic, atraumatic EYES: PERRLA, EOMI, sclera anicteric, conjunctiva clear ENT: Auricles normal inspection, hearing grossly normal, nares patent, oropharynx clear without exudates. Moist mucosa NECK: Normal ROM, supple, no lymphadenopathy, JVD, or masses LUNGS: No distress, speaks full sentences, clear to auscultation bilaterally HEART: Regular rate and rhythm, normal S1 and S2, no murmurs, rubs or gallops, peripheral pulses normal and equal bilaterally. ABDOMEN: Soft, nontender, normoactive bowel sounds. No guarding, no rebound. No masses EXTREMITIES : Normal inspection, Normal range of motion, no edema. No clubbing or cyanosis. NEUROLOGICAL: Cranial nerves II through XII grossly intact. Normal speech, normal gait, no focal sensorimotor deficits. Normal TONY. Absent dysmetria on FTN. SKIN: Warm, Dry, normal turgor, no rashes or lesions noted. CBCD WBC 6.2 K/mm3 (4.0-10.0) 05/30/17 07:40 RBC 4.62 M/mm3 (3.60-5.2) 05/30/17 07:40 Hgb 13.3 GM/dL (10.7-15.3) 05/30/17 07:40 Hct 40.9 % (32.4-45.2) 05/30/17 07:40 MCV 88.5 fl (80-96) 05/30/17 07:40 MCHC 32.5 g/dl (32.0-36.0) 05/30/17 07:40 RDW 16.8 % (11.6-15.6) H 05/30/17 07:40 Plt Count 249 K/MM3 (134-434) 05/30/17 07:40 MPV 7.9 fl (7.5-11.1) 05/30/17 07:40 CMP Sodium 137 mmol/L (136-145) 05/30/17 07:40 Potassium 4.5 mmol/L (3.5-5.1) 05/30/17 07:40 Chloride 104 mmol/L (98-107) 05/30/17 07:40 Carbon Dioxide 26 mmol/L (21-32) 05/30/17 07:40 Anion Gap 7 (8-16) L 05/30/17 07:40 BUN 14 mg/dL (7-18) 05/30/17 07:40 Creatinine 0.8 mg/dL (0.55-1.02) 05/30/17 07:40 Creat Clearance w eGFR > 60 (>60) 05/28/17 17:00 Calcium 8.8 mg/dL (8.5-10.1) 05/30/17 07:40 Total Bilirubin 0.4 mg/dL (0.2-1.0) D 05/28/17 17:00 AST 12 U/L (15-37) L 05/28/17 17:00 ALT 27 U/L (12-78) 05/28/17 17:00 Alkaline Phosphatase 82 U/L (45-117) 05/28/17 17:00 Total Protein 7.9 g/dl (6.4-8.2) 05/28/17 17:00 Albumin 3.9 g/dl (3.4-5.0) 05/28/17 17:00 CT head images reviewed, MRI brain reviewed Medical Decision Making 81 yo F with h/o HTN, HLD, HCV, prior GI hemorrhage (2015), and diverticulosis who presents with vertigo. Per notes, patient she was walking downstairs and experienced episode of weakness, and swaying sensation with no LOC. She reports controlled fall to chair and controlled sliding to ground, where she layed there for 5 minutes before family arrived. States that she was disoriented and alert. Deny convulsions, tongue biting, LOC, urinary incontinence. Vertigo symptoms triggered with posterior head movement. Per patient family she has had increased confusion over the past two months and dark colored stools, and increased urination. Denies BRBPR. She feels better today but does not feel fully well yet. CT head completed, stable MRI brain without acute changes Monitor BP, hypertensive on admission, improved Goal < 140/90, Can give meclezine, low dose for dizzyness, as needed, ordered Maintain hydration Fall precautions Neurologically stable at this time
[2017-05-30] MEDS: FAMOTIDINE 20 MG/50 ML IVPB 20 MG/50 ML MG IVPB SCH (11:00)
[2017-05-30] MEDS: POTASSIUM CHLORIDE TABS 20 MEQ TABLET.ER (FP) PO SCH (11:00)
--- NOTE | 2017-05-30 14:38 | DS ---
Physical Examination Vital Signs: Vital Signs Temperature 36.4 C 05/30/17 06:00 Pulse Rate 80 05/30/17 10:00 Respiratory Rate 18 05/30/17 06:00 Blood Pressure 135/74 05/30/17 10:00 O2 Sat by Pulse Oximetry (%) 98 05/30/17 09:00 Constitutional: Yes: Well Nourished, No Distress, Calm Cardiovascular: Yes: Regular Rate and Rhythm. No: Gallop, Murmur, Rub Respiratory: Yes: Regular, CTA Bilaterally. No: Rales, Rhonchi, Wheezes Gastrointestinal: Yes: Normal Bowel Sounds, Soft. No: Distention, Tenderness Extremities: Yes: WNL Edema: No Labs: CBC, BMP 05/30/17 07:40 05/30/17 07:40 Discharge Summary Reason For Visit: SYNCOPE Current Active Problems Asthma (Acute) Hypotension (Acute) Near syncope (Acute) Syncope (Acute) Hospital Course: Mrs Daniel is a very pleasant 81 year old female who came in with pre-syncope. She was admitted to the hospital under observation. She was hydrated with IVF. Neurology and cardiology saw the patient and notes reviewed. Her orthostatic vital signs were checked and she was negative. Her blood pressure remained well controlled while here, will stop valsartan. She should have close follow up as an outpatient to see if this needs to be added back. She is safe for discharge home with outpatient cardiology follow up. Her symptoms resolved. Condition: Good - Instructions Diet, Activity, Other Instructions: Resume previous diet and activity Referrals: Herb Levine MD [Staff Physician] - Michael Mariano MD [Primary Care Provider] - Jim Strauss MD [Staff Physician] - Disposition: HOME - Home Medications Comprehensive Discharge Medication List: Ambulatory Orders Simvastatin [Zocor] 20 mg PO HS #0 tablet 06/03/11 Fluticasone/Vilanterol [Breo Ellipta 100-25 Mcg INH] 1 each IH DAILY 12/02/15 Potassium Chloride 20 meq PO BID 03/05/16 Meclizine HCl [Antivert -] 12.5 mg PO TID PRN #30 tablet 05/30/17
[2017-05-30 14:49] VITALS: BP 142/89; PULSE 79; TEMP 98.4
== END 2017-05-30 16:15 | disposition home or self-care (01) ==
LOC: JER 15:38 → JERBED 21:00 → J4S 05-29 19:20
PROVIDERS: ADMIT Internal Medicine; ATTEND Internal Medicine
PROC: 3E033GC Introduction of Other Therapeutic Substance into Peripheral Vein, Percutaneous Approach (ICD-10-PCS; principal; 2017-05-28)
PROC: 3E0337Z Introduction of Electrolytic and Water Balance Substance into Peripheral Vein, Percutaneous Approach (ICD-10-PCS; 2017-05-28)
DX: R55 Syncope and collapse (principal); I10 Essential (primary) hypertension; E78.5 Hyperlipidemia, unspecified; B18.2 Chronic viral hepatitis C; D64.9 Anemia, unspecified; J45.909 Unspecified asthma, uncomplicated; Z88.0 Allergy status to penicillin; Z88.5 Allergy status to narcotic agent; K55.20 Angiodysplasia of colon without hemorrhage; I95.9 Hypotension, unspecified; R42 Dizziness and giddiness
CPT/HCPCS: 36415; 70450-TC; 70551-TC; 71045-TC; 80048; 80053; 80061; 81003; 81015; 82272; 82550; 82962; 83036; 83721; 83735; 84443; 84484; 85025; 85610; 86850; 86900; 86901; 93005; 93010; 93306-TC; 96374; 96376; 97116-GP; 97161-GP; 99285-25; G0378

== ENCOUNTER 2017-10-12 13:57 | Inpatient (IN) | payer OTHER, MEDICARE ==
--- NOTE | 2017-10-12 14:01 | PDOC ---
History of Present Illness - General Stated Complaint: LT HIP PAIN Time Seen by Provider: 10/12/17 14:01 - History of Present Illness Initial Comments: 10/12/17 14:06 Ms. Daniel is an 81 yo female w/ pmh of HTN, HLD, HCV, GI hemorrhage (2014), and diverticulosis who presents for evaluation after mechanical fall earlier today. She reports she was bird seed shopping when her leg gave out and she fell down on her right hip; experiencing significant pain. Her helped her into the car and they presented directly to ER. She was in her previous state of health until this occured. The patient denies chest pain, shortness of breath, headache and dizziness. Denies fever, chills, nausea, vomit, diarrhea and constipation. Denies dysuria, frequency, urgency and hematuria. Allergies: Penicillins, codeine Past History - Past Medical History Allergies/Adverse Reactions: Allergies Allergy/AdvReac Type Severity Reaction Status Date / Time Penicillins Allergy Unknown Verified 10/12/17 16:15 codeine [Codeine] Allergy Verified 10/12/17 16:15 Home Medications: Ambulatory Orders Simvastatin [Zocor] 20 mg PO HS #0 tablet 06/03/11 Fluticasone/Vilanterol [Breo Ellipta 100-25 Mcg INH] 1 each IH DAILY 12/02/15 Potassium Chloride 20 meq PO BID 03/05/16 Meclizine HCl [Antivert -] 12.5 mg PO TID PRN #30 tablet 05/30/17 Anemia: Yes Asthma: Yes (MILD) Cancer: No Cardiac Disorders: No CVA: No COPD: No CHF: No Dementia: No Diabetes: No GI Disorders: Yes (REFLUX) Disorders: No HTN: Yes Hypercholesterolemia: Yes Liver Disease: Yes (HEPATITIS -C) Seizures: No Thyroid Disease: Yes (removed) - Surgical History Abdominal Surgery: No Appendectomy: Yes Cardiac Surgery: No Cholecystectomy: No Lung Surgery: No Neurologic Surgery: Yes (EPIDURAL-CRANIOTOMY) Orthopedic Surgery: Yes (ARTHROSCOPY RIGHT KNEE) - Immunization History Td Vaccination: No (unknown) TDAP Vaccination: No Immunization Up to Date: No - Suicide/Smoking/Psychosocial Hx Smoking Status: No Smoking History: Never smoked Years of Tobacco Use: 0 Have you smoked in the past 12 months: No Number of Cigarettes Smoked Daily: 0 Cigars Per Day: 0 Hx Alcohol Use: No Drug/Substance Use Hx: No Substance Use Type: None Hx Substance Use Treatment: No Review of Systems - Review of Systems Comments:: 10/12/17 14:09 GENERAL/CONSTITUTIONAL: No fever or chills. No weakness. HEAD, EYES, EARS, NOSE AND THROAT: No change in vision. No ear pain or discharge. No sore throat. CARDIOVASCULAR: No chest pain or shortness of breath RESPIRATORY: No cough, wheezing, or hemoptysis. GASTROINTESTINAL: No nausea, vomiting, diarrhea or constipation. GENITOURINARY: No dysuria, frequency, or change in urination. MUSCULOSKELETAL: +Right hip pain as described. SKIN: No rash NEUROLOGIC: No headache, vertigo, loss of consciousness, or change in strength/ sensation. ENDOCRINE: No increased thirst. No abnormal weight change HEMATOLOGIC/LYMPHATIC: No anemia, easy bleeding, or history of blood clots. ALLERGIC/IMMUNOLOGIC: No hives or skin allergy. *Physical Exam - Physical Exam Comments: 10/12/17 14:10 GENERAL: Awake, alert, and fully oriented, in no acute distress HEAD: No signs of trauma, normocephalic, atraumatic EYES: PERRLA, EOMI, sclera anicteric, conjunctiva clear ENT: Auricles normal inspection, hearing grossly normal, nares patent, oropharynx clear without exudates. Moist mucosa NECK: Normal ROM, supple, no lymphadenopathy, JVD, or masses LUNGS: No distress, speaks full sentences, clear to auscultation bilaterally HEART: Regular rate and rhythm, normal S1 and S2, no murmurs, rubs or gallops, peripheral pulses normal and equal bilaterally. ABDOMEN: Soft, nontender, normoactive bowel sounds. No guarding, no rebound. No masses EXTREMITIES: +Right leg flexed, appears externally rotated and shortened. Patient not tolerating movement. NEUROLOGICAL: Cranial nerves II through XII grossly intact. Normal speech, normal gait, no focal sensorimotor deficits SKIN: Warm, Dry, normal turgor, no rashes or lesions noted. ED Treatment Course - LABORATORY CBC & Chemistry Diagram: 10/12/17 14:45 10/12/17 14:45 Medical Decision Making - Medical Decision Making 10/12/17 14:17 Ms. Daniel is an 81 yo female w/ pmh as described who presents for evaluation post fall. Due to concern for hip fracture pre-op labs started. Patient orthopedist is doctor Novak. X-rays sent for evaluation and pain controlled with morphine (patient confirms she has taken it before without allergic reaction). 10/12/17 17:06 Patient noted to have comminuted fracture. Ortho consulted (Kishore). Attempted to control pain with morphine 2mg, 4mg, versed 2mg, fentanyl 50mg. Inpatient team paged for admission. 10/12/17 18:52 Patient admitted for further evaluation. *DC/Admit/Observation/Transfer Diagnosis at time of Disposition: Hip fracture Qualifiers: Encounter type: initial encounter Fracture type: closed Laterality: unspecified laterality Qualified Code(s): S72.009A - Fracture of unspecified part of neck of unspecified femur, initial encounter for closed fracture - Discharge Dispostion Decision to Admit order: Yes - Referrals Referrals: Michael Mariano MD [Primary Care Provider] - - Patient Instructions - Post Discharge Activity
[2017-10-12] MEDS ORDERED: morphine CARPU-JECT 2 MG/1 ML DISP.SYRIN IVPUSH ONE (14:02)
[2017-10-12] MEDS ORDERED: SODIUM CHLORIDE 1,000 ML IV STA (14:02)
[2017-10-12] MEDS ORDERED: ONDANSETRON 4 MG/2 ML VIAL IVPUSH ONE (14:02)
[2017-10-12] MEDS ORDERED: morphine CARPU-JECT 2 MG/1 ML DISP.SYRIN ONE (14:21)
[2017-10-12] MEDS ORDERED: ONDANSETRON 4 MG/2 ML VIAL ONE ×2 (14:22→20:48)
[2017-10-12] MEDS ORDERED: morphine CARPU-JECT 4 MG/1 ML DISP.SYRIN IVPUSH ONE (14:37)
--- NOTE | 2017-10-12 14:37 | PDOC ---
Attending Attestation - HPI HPI: 10/12/17 15:22 The patient is an 81-year-old female, with a significant past medical history of HTN, hyperlipidemia, diverticulosis, and GI hemorrhage (2015), who presents to the ED s/p mechanical fall today. The patient states that she was buying bird food when suddenly her right leg gave out, causing her to fall onto her right hip. The patients was able to get her into their car and drive her to the ED. She is now complaining of right hip pain. The patient denies any loss of consciousness. The patient denies having any other injuries or symptoms. - Physicial Exam PE: 10/12/17 15:23 GENERAL: Awake, alert, answers questions. HEAD: Normal with no signs of trauma. EYES: PERRLA, EOMI, sclera anicteric, conjunctiva clear. ENT: Ears normal, nares patent, oropharynx clear without exudates. Moist mucous membranes. NECK: Normal range of motion, supple without lymphadenopathy, JVD, or masses. LUNGS: Breath sounds equal, clear to auscultation bilaterally. No wheezes, and no crackles. HEART:Regular rate and rhythm, normal S1 and S2 without murmur, rub or gallop. ABDOMEN: Soft, nontender, normoactive bowel sounds. No guarding, no rebound. EXTREMITIES: (+)Right hip is painful, right leg is shortened and externally rotated. No clubbing or cyanosis. NEUROLOGICAL: Cranial nerves II through XII grossly intact. Normal speech. No focal neurological deficits. MUSCULOSKELETAL: Back non-tender to palpation, no CVA tenderness SKIN: Warm, Dry, normal turgor, no rashes or lesions noted. <Maddie Beltran - Last Filed: 10/12/17 15:22> - Resident Resident Name: Luis Fernando Smith - ED Attending Attestation I have performed the following: I have examined & evaluated the patient, The case was reviewed & discussed with the resident, I agree w/resident's findings & plan, Exceptions are as noted - Medical Decision Making 10/12/17 14:37 Ms Daniel presents to the ER with a complaint of right hip pain s/p fall Pt right lower extremity shortened and externally rotated Pt with severe pain Most likely hip fracture Followed by Dr. Novak Will do: Labs CT head Xray hip Cabezas Admit 10/12/17 14:43 EKG: Normal sinus rhythm, rate of 78 bpm, axis normal, intervals are normal, no ST elevations or depressions, T waves upright, baseline with artifact <Rukhsana Murray - Last Filed: 10/14/17 08:10> Attestations - Attestations 10/12/17 15:25 Documentation prepared by Maddie Beltran, acting as medical record technician for Rukhsana Murray MD. <Maddie Beltran - Last Filed: 10/12/17 15:22>
[2017-10-12] MEDS ORDERED: morphine SULFATE 4 MG/ML VIAL ONE ×2 (14:40→19:34)
[2017-10-12] MEDS ORDERED: diazePAM 2 MG TABLET PO ONE (15:01)
[2017-10-12] MEDS ORDERED: MIDAZOLAM HCL 2 MG/2 ML SINGLE DOSE VIAL IVPUSH ONE (15:06)
[2017-10-12] MEDS ORDERED: MIDAZOLAM HCL 2 MG/2 ML SINGLE DOSE VIAL ONE (15:07)
[2017-10-12 15:37] LABS: BASO % 0.5 % (0-2.0); HEMATOCRIT 38.1 % (32.4-45.2); HEMOGLOBIN 12.9 GM/dL (10.7-15.3); LYMPH % 33.5 % (8-40); MCH 30.4 pg (25.7-33.7); MCHC 33.8 g/dl (32.0-36.0); MEAN PLT VOLUME 8.5 fl (7.5-11.1); MONO % 11.5 % (3.8-10.2); NEUT % 52.5 % (42.8-82.8); PLATELET COUNT 384 K/MM3 (134-434); RBC 4.23 M/mm3 (3.60-5.2); RDW 12.8 % (11.6-15.6); WHITE BLOOD COUNT 8.4 K/mm3 (4.0-10.0)
[2017-10-12 16:33] LABS: ALBUMIN 3.9 g/dl (3.4-5.0); ALK PHOS 93 U/L (45-117); ANION GAP 12 (8-16); BILIRUBIN,TOTAL 0.5 mg/dL (0.2-1.0); BLOOD UREA NITROGEN 10 mg/dL (7-18); CALCIUM 9.7 mg/dL (8.5-10.1); CHLORIDE 99 mmol/L (98-107); CO2 25 mmol/L (21-32); CREATININE 0.8 mg/dL (0.55-1.02); GLUCOSE,RANDOM 126 mg/dL (74-106); POTASSIUM 3.1 mmol/L (3.5-5.1); SGOT/AST 11 U/L (15-37); SGPT/ALT 18 U/L (12-78); SODIUM 136 mmol/L (136-145); TOT PROT 7.5 g/dl (6.4-8.2)
[2017-10-12 16:38] LABS: PROTHROMBIN TIME (PATIENT) 11.3 SEC (9.7-13.0)
[2017-10-12 16:41] LABS: ACTIVATED PTT 26.1 SECONDS (26.9-34.4)
--- NOTE | 2017-10-12 17:49 | CONSULT ---
Consult - text type - Consultation Consultation Note: FULL CONSULT DICTATED IMP: RIGHT SUBTROCH FEMUR FRACTURE PLAN: ---> OR TOMORROW ONCE MEDICALLY EVALUATED AND OPTIMIZED
--- NOTE | 2017-10-12 18:53 | HP ---
CHIEF COMPLAINT: Right hip pain s/p fall PCP: Dr. Mariano HISTORY OF PRESENT ILLNESS: 81 year-old female with a PMH significant for HTN, HLD, asthma, hepatitis C, diverticulosis, right colonic angiodysplesia, recurrent GI bleed, osteoarthritis , vertigo, thyroid cancer s/p resection, meningioma s/p resection x 4 years. Patient was getting out of her car when her right leg gave way and she fell on her right hip experiencing significant pain. Her helped her into the car and brought her directly to the ED. ER course was notable for: (1) Right hip xray: comminuted, significantly displaced right intertrochanteric acute fracture Recent Travel: No PAST MEDICAL HISTORY: Hypertension Hyperlipidemia Asthma Hepatitis C (treated-[facility]) Diverticulosis Right colonic angiodysplesia Recurrent GI bleed Osteoarthritis Vertigo Thyroid cancer Meningioma PAST SURGICAL HISTORY: Thyroid resection Craniotomy for meningioma resection x 4 years Appendectomy Hysterectomy Social History: Smoking: no Alcohol: no Drugs: no Family History: Allergies Penicillins Allergy (Unknown, Verified 10/12/17 16:15) pt states i am not sure codeine [Codeine] Allergy (Verified 10/12/17 16:15) HOME MEDICATIONS: Home Medications Medication Instructions Recorded Simvastatin [Zocor] 20 mg PO HS #0 tablet 06/03/11 Fluticasone/Vilanterol [Breo 1 each IH DAILY 12/02/15 Ellipta 100-25 Mcg INH] Potassium Chloride 20 meq PO BID 03/05/16 Meclizine HCl [Antivert -] 12.5 mg PO TID PRN #30 tablet 05/30/17 REVIEW OF SYSTEMS CONSTITUTIONAL: Absent: fever, chills, diaphoresis, generalized weakness, malaise, loss of appetite, weight change HEENT: Absent: rhinorrhea, nasal congestion, throat pain, throat swelling, difficulty swallowing, mouth swelling, ear pain, eye pain, visual changes CARDIOVASCULAR: Absent: chest pain, syncope, palpitations, irregular heart rate, lightheadedness , peripheral edema RESPIRATORY: Absent: cough, shortness of breath, dyspnea with exertion, orthopnea, wheezing, stridor, hemoptysis GASTROINTESTINAL: Absent: abdominal pain, abdominal distension, nausea, vomiting, diarrhea, constipation, melena, hematochezia GENITOURINARY: Absent: dysuria, frequency, urgency, hesitancy, hematuria, flank pain, genital pain MUSCULOSKELETAL: +right hip pain Absent: myalgia, arthralgia, joint swelling, back pain, neck pain SKIN: Absent: rash, itching, pallor HEMATOLOGIC/IMMUNOLOGIC: Absent: easy bleeding, easy bruising, lymphadenopathy, frequent infections ENDOCRINE: Absent: unexplained weight gain, unexplained weight loss, heat intolerance, cold intolerance NEUROLOGIC: Absent: headache, focal weakness or paresthesias, dizziness, unsteady gait, seizure, mental status changes, bladder or bowel incontinence PSYCHIATRIC: Absent: anxiety, depression, suicidal or homicidal ideation, hallucinations. PHYSICAL EXAMINATION Vital Signs - 24 hr 10/12/17 10/12/17 10/12/17 14:03 14:30 16:19 Temperature 97.5 F L Pulse Rate 83 Pulse Rate [ 91 H Apical] Respiratory 20 18 Rate Blood Pressure 162/91 Blood Pressure 151/94 [Left Arm] O2 Sat by Pulse 99 100 99 Oximetry (%) GENERAL: Awake, alert, and fully oriented, in no acute distress. HEAD: Normal with no signs of trauma. EYES: Pupils equal, round and reactive to light, extraocular movements intact, sclera anicteric, conjunctiva clear. No lid lag. EARS, NOSE, THROAT: Ears normal, nares patent, oropharynx clear without exudates. Moist mucous membranes. NECK: Normal range of motion, supple without lymphadenopathy, JVD, or masses. LUNGS: Breath sounds equal, clear to auscultation bilaterally. No wheezes, and no crackles. No accessory muscle use. HEART: Regular rate and rhythm, normal S1 and S2 ABDOMEN: Soft, nontender, not distended, normoactive bowel sounds : moura draining clear yellow urine UPPER EXTREMITIES: 2+ pulses, warm, well-perfused. No cyanosis. No clubbing. No peripheral edema. LOWER EXTREMITIES: 2+ pulses, warm, well-perfused. No calf tenderness. No peripheral edema. Right leg shortened and rotated outward NEUROLOGICAL: Cranial nerves II-XII intact. Normal speech. Laboratory Results - last 24 hr 10/12/17 10/12/17 10/12/17 14:45 14:45 14:45 WBC 8.4 D RBC 4.23 Hgb 12.9 Hct 38.1 MCV 90.0 MCH 30.4 MCHC 33.8 RDW 12.8 D Plt Count 384 D MPV 8.5 Absolute Neuts (auto) 4.4 Neutrophils % 52.5 Lymphocytes % 33.5 Monocytes % 11.5 H Eosinophils % 2.0 Basophils % 0.5 Nucleated RBC % 0 PT with INR 11.30 INR 1.00 PTT (Actin FS) 26.1 L Sodium 136 Potassium 3.1 L Chloride 99 Carbon Dioxide 25 Anion Gap 12 BUN 10 Creatinine 0.8 Creat Clearance w eGFR > 60 Random Glucose 126 H Calcium 9.7 Total Bilirubin 0.5 D AST 11 L ALT 18 Alkaline Phosphatase 93 Total Protein 7.5 Albumin 3.9 Blood Type Antibody Screen 10/12/17 18:40 WBC RBC Hgb Hct MCV MCH MCHC RDW Plt Count MPV Absolute Neuts (auto) Neutrophils % Lymphocytes % Monocytes % Eosinophils % Basophils % Nucleated RBC % PT with INR INR PTT (Actin FS) Sodium Potassium Chloride Carbon Dioxide Anion Gap BUN Creatinine Creat Clearance w eGFR Random Glucose Calcium Total Bilirubin AST ALT Alkaline Phosphatase Total Protein Albumin Blood Type O NEGATIVE Antibody Screen Negative Imaging (1) Right hip xray: comminuted, significantly displaced right intertrochanteric acute fracture (2) CT head: no acute pathology; s/p right craniotomy with right temporal lobe postoperative encephalomalacia (3) CT c-spine: moderately severe degenerative arthritic changes; no fracture; no acute pathology ASSESSMENT/PLAN: 81 year-old female with a PMH significant for HTN, HLD, asthma, hepatitis C, diverticulosis, right colonic angiodysplesia, recurrent GI bleed, vertigo, thyroid cancer s/p resection, craniotomy for meningioma resection x 4 years. Admitted for comminuted displaced right intertrochanteric fracture. Comminuted, displaced right intertrochanteric fracture --seen and evaluated by ortho, to OR tomorrow --morphine, Tylenol, Zofran PRN Hypertension --continue amlodipine, valsartan Hyperlipidemia --continue statin Asthma --stable --duonebs PRN Hepatitis C --successfully treated with Harvoni --LFTs wnl Diverticulosis Right colonic angiodysplesia Recurrent GI bleed --h/h stable --perioperative IV protonix Thyroid cancer s/p resection --TSH checked in May 2017, wnl Meningioma s/p craniotomy --no acute issues Vertigo --hold meclizine Hypokalemia --repleted FEN Fluids: D51/2NS@83mL/hr Electrolytes: replete as indicated Nutrition: NPO after midnight DVT prophylaxis: SCDs/TEDs Dispo: continues to require inpatient care. Full code. Visit type - Emergency Visit Emergency Visit: Yes ED Registration Date: 10/12/17 Care time: The patient presented to the Emergency Department on the above date and was hospitalized for further evaluation of their emergent condition. - New Patient This patient is new to me today: Yes Date on this admission: 10/12/17 - Critical Care Critical Care patient: No Hospitalist Screening - Colonoscopy Questionnaire Colonoscopy Questionnaire: Colonoscopy Questionnaire - Patient: 50 - 75 years old and never had a screening colonoscopy: Unknown History of colon or rectal polyps, or CA: Unknown History of IBD, Crohn's disease or UC: Unknown History of abdominal radiation therapy as a child: Unknown - Relative: 1 with colon or rectal CA, or polyps at age 60 or younger: Unknown Colon or rectal CA diagnosed at age 45 or younger: Unknown Multiple relatives with colon or rectal CA: Unknown - Outcome: Screening Result: Negative Screen
--- NOTE | 2017-10-12 18:58 | CONS ---
DATE OF CONSULTATION: 10/12/2017 ORTHOPEDICS CONSULTATION REASON FOR CONSULTATION: Orthopedic consultation for [facility]. HISTORY OF PRESENT ILLNESS: Patient is an 81-year-old female well known to my service. I had just seen the patient in the office about 2 weeks ago. I am treating her with severe lumbar degenerative disk disease. Patient was getting out of her car and twisted and felt a pop in her right hip with inability to ambulate post fall. PHYSICAL EXAMINATION: She has shortening and external rotation of the right lower extremity, marked increased pain with any range of motion of her right hip, full range of motion in the ankle and toes, and they are vascularly intact. X-ray shows a comminuted right intertrochanteric/left intertrochanteric femur fracture, no other lesions. IMPRESSION: Fracture as described. PLAN: Risks, benefits, and alternatives discussed with the patient and with in great detail. She will be medically optimized by her medical doctor, , and she is n.p.o. past midnight for operative intervention tomorrow. JOSE HANLEY M.D. JAY [id number]
[2017-10-12] MEDS ORDERED: ACETAMINOPHEN 325 MG TABLET (FP) PO PRN (19:11)
[2017-10-12] MEDS ORDERED: DEXTROSE 5%-0.45% SALINE 1,000 ML IV SCH (19:15)
[2017-10-12] MEDS ORDERED: POTASSIUM CHLORIDE TABS 20 MEQ TABLET.ER (FP) PO ONE (19:38)
[2017-10-12] MEDS ORDERED: ALBUTEROL SO4 2.5/IPRATROPIUM 0.5 INH SOL 3 ML VIAL.NEB. NEB PRN (19:43)
[2017-10-12] MEDS: POTASSIUM CHLORIDE TABS 20 MEQ TABLET.ER (FP) PO SCH (19:51)
[2017-10-12] MEDS: morphine SULFATE 4 MG/ML VIAL IVPUSH PRN ×2 (19:51→23:58)
[2017-10-12] MEDS ORDERED: PANTOPRAZOLE SODIUM 40 MG/100 ML BAG IVPB ONE (20:33)
[2017-10-12] MEDS: PANTOPRAZOLE SODIUM 40 MG VIAL IVPUSH SCH (20:40)
[2017-10-12] MEDS ORDERED: ONDANSETRON 4 MG/2 ML VIAL IVPB ONE (20:48)
[2017-10-12] MEDS ORDERED: ATORVASTATIN CA 20 MG TABLET (FP) PO SCH (22:00)
[2017-10-12] MEDS ORDERED: PATIENT'S OWN MEDICATION (NON-FORMULARY) (Potassium Chloride [Potassium Chloride] 20 MEQ) PO SCH (22:00)
[2017-10-12] MEDS ORDERED: PATIENT'S OWN MEDICATION (NON-FORMULARY) (Simvastatin [Zocor] 20 MG) PO SCH (22:00)
[2017-10-12] MEDS: VALSARTAN 160 MG TABLET (UD) PO SCH (22:47)
[2017-10-12] MEDS: amLODIPine BESYLATE 5 MG TABLET (FP) PO SCH (22:48)
[2017-10-13 00:05] VITALS: BMI 26.9
[2017-10-13] MEDS: POTASSIUM CHLORIDE TABS 20 MEQ TABLET.ER (FP) PO SCH (01:35)
[2017-10-13] MEDS: ONDANSETRON 4 MG/2 ML VIAL IVPUSH PRN ×2 (01:50→08:26)
[2017-10-13 07:25] LABS: BASO % 0.4 % (0-2.0); EOS % 0.4 % (0-4.5); HEMATOCRIT 32.1 % (32.4-45.2); LYMPH % 19.4 % (8-40); MCH 30.6 pg (25.7-33.7); MCHC 34.4 g/dl (32.0-36.0); MEAN PLT VOLUME 7.8 fl (7.5-11.1); MONO % 11.5 % (3.8-10.2); NEUT % 68.3 % (42.8-82.8); PLATELET COUNT 321 K/MM3 (134-434); RBC 3.61 M/mm3 (3.60-5.2); RDW 13.2 % (11.6-15.6); WHITE BLOOD COUNT 10.6 K/mm3 (4.0-10.0)
[2017-10-13 08:16] LABS: CHLORIDE 99 mmol/L (98-107); POTASSIUM 3.4 mmol/L (3.5-5.1); SODIUM 136 mmol/L (136-145)
[2017-10-13 08:38] LABS: ALBUMIN 3.2 g/dl (3.4-5.0); ALK PHOS 74 U/L (45-117); ANION GAP 11 (8-16); BILIRUBIN,TOTAL 0.6 mg/dL (0.2-1.0); BLOOD UREA NITROGEN 7 mg/dL (7-18); CALCIUM 8.2 mg/dL (8.5-10.1); CO2 26 mmol/L (21-32); CREATININE 0.5 mg/dL (0.55-1.02); GLUCOSE,RANDOM 113 mg/dL (74-106); MAGNESIUM 1.8 mg/dL (1.8-2.4); PHOSPHOROUS 3.1 mg/dL (2.5-4.9); SGOT/AST 14 U/L (15-37); SGPT/ALT 17 U/L (12-78); TOT PROT 6.3 g/dl (6.4-8.2)
--- NOTE | 2017-10-13 08:44 | PN ---
Progress Note (short form) - Note Progress Note: Patient seen and examined. Chart reviewed. Patient well known to me from outpatient care. Currently sitting up in bed, alert and appropriate, in moderate distress associated with nausea. Events as documented. Fell getting out of car. No head trauma. Sustained right comminuted displaced fracture of right hip. Medication list, problem list, radiologic procedures, EKG and progress notes reviewed For OR this AM Selected Entries 10/12/17 10/13/17 22:59 07:25 Temperature 98.1 F Pulse Rate 84 Respiratory 17 Rate Blood Pressure 138/87 O2 Sat by Pulse 96 Oximetry (%) Oxygen Delivery Room Air Method Laboratory Tests 10/12/17 10/13/17 14:45 06:30 Sodium 136 136 Potassium 3.1 L 3.4 L Chloride 99 99 Carbon Dioxide 25 Anion Gap 12 BUN 10 Creatinine 0.8 Random Glucose 126 H Calcium 9.7 Total Bilirubin 0.5 D AST 11 L ALT 18 Alkaline Phosphatase 93 Total Protein 7.5 Albumin 3.9 Chest Clear Cor RRR Abd Soft nontender BS positive Ext No edema No phlebitis Neuro No new focal deficit Assessment and Plan Right hip fracture Markedly displaced, comminuted intertrochanteric fracture For Gamma nail surgery today HTN Stable Hypokalemia 3.1>>3.4 Replete HPL Stable H/O Asthma Stable Hepatitis C Treated Cured H/O GI bleed Monitor H/H Currently stable H/O angiodysplasia H/O Meningioma post resection Stable H/O Vertigo Stable Full extensive problem list as documented in previous admission notes and office records placed in chart Stable for proposed operative procedure and anesthesia
[2017-10-13] MEDS ORDERED: POTASSIUM CHLORIDE 10 MEQ in SODIUM CHLORIDE 100 ML IVPB SCH (08:45)
[2017-10-13] MEDS ORDERED: MIDAZOLAM HCL 2 MG/2 ML SINGLE DOSE VIAL ONE (10:26)
[2017-10-13] MEDS ORDERED: BUPIVACAINE 0.75% IN DEXTROSE/PF 2ML AMPULE NR ONE (10:26)
[2017-10-13] MEDS ORDERED: ceFAZolin SODIUM 1 GM VIAL IVPB ONE (10:58)
--- NOTE | 2017-10-13 11:29 | EKG ---
Test Reason : Blood Pressure : / mmHG Vent. Rate : 078 BPM Atrial Rate : 078 BPM P-R Int : 128 ms QRS Dur : 080 ms QT Int : 414 ms P-R-T Axes : 002 032 -19 degrees QTc Int : 471 ms POOR DATA QUALITY, INTERPRETATION MAY BE ADVERSELY AFFECTED NORMAL SINUS RHYTHM CANNOT RULE OUT INFERIOR INFARCT , AGE UNDETERMINED ABNORMAL ECG WHEN COMPARED WITH ECG OF 28-MAY-2017 20:54, MINIMAL CRITERIA FOR INFERIOR INFARCT ARE NOW PRESENT T WAVE INVERSION MORE EVIDENT IN INFERIOR LEADS NONSPECIFIC T WAVE ABNORMALITY NOW EVIDENT IN LATERAL LEADS Confirmed by JONATHAN SMITH MD ([id number]) on 10/13/2017 11:29:25 AM Referred By: Confirmed By:JONATHAN SMITH MD
[2017-10-13] MEDS: VALSARTAN 160 MG TABLET (UD) PO SCH (11:40)
[2017-10-13] MEDS ORDERED: ONDANSETRON 4 MG/2 ML VIAL IVPUSH PRN ×2 (11:41→12:07)
[2017-10-13] MEDS: PANTOPRAZOLE SODIUM 40 MG VIAL IVPUSH SCH (11:41)
[2017-10-13] MEDS ORDERED: PROMETHAZINE HCL 25 MG/1 ML VIAL IVPB PRN ×2 (11:41→12:07)
[2017-10-13] MEDS: amLODIPine BESYLATE 5 MG TABLET (FP) PO SCH (11:41)
[2017-10-13] MEDS ORDERED: oxyCODONE HCL 5 MG TABLET PO PRN (11:41)
[2017-10-13] MEDS ORDERED: LACTATED RINGERS SOLUTION 1,000 ML IV SCH ×2 (11:45→12:07)
--- NOTE | 2017-10-13 11:51 | OP ---
Operative Note - Note: Operative Date: 10/13/17 ([facility]) Pre-Operative Diagnosis: right IT fx Operation: right long IM gamma nail Post-Operative Diagnosis: Same as Pre-op Surgeon: Edgar Novak Anesthesiologist/[employer] REPRESENTATIVE: Eloy Cox Anesthesia: General Estimated Blood Loss (mls): 50 Operative Report Dictated: Yes
[2017-10-13] MEDS ORDERED: ACETAMINOPHEN 325 MG TABLET (FP) PO PRN (12:07)
[2017-10-13] MEDS ORDERED: ALBUTEROL SO4 2.5/IPRATROPIUM 0.5 INH SOL 3 ML VIAL.NEB. NEB PRN (12:07)
--- NOTE | 2017-10-13 13:20 | OP ---
DATE OF OPERATION: 10/13/2017 PREOPERATIVE DIAGNOSIS: Right comminuted intertrochanteric/subtrochanteric hip fracture. POSTOPERATIVE DIAGNOSIS: Right comminuted intertrochanteric/subtrochanteric hip fracture. PROCEDURE: Right long Gamma nailing. SURGICAL ATTENDING: Edgar Novak MD ANESTHESIA: Spinal. CLOSURE: A long Gamma nail of appropriate length with the appropriate-size locking screws; 0 Vicryl fascia, 2-0 subcutaneous, anaid for skin. ESTIMATED BLOOD LOSS: Negligible. COMPLICATIONS: None. CONDITION: To Recovery in stable condition. DESCRIPTION OF OPERATIVE PROCEDURE: Patient taken to the operating room on October 13, 2017. Spinal anesthesia was administered by the anesthesiologist. IV Kefzol was administered prophylactically prior to the case. Patient was fastened to the fracture table with all prominences with well padded. The right hip area was prepped and draped in the usual sterile fashion using a shower curtain. A small 2-inch incision over the tip of the greater trochanter was incised. Hemostasis achieved using Bovie cautery. Sharp dissection was carried through the fascia. Guidewire was drilled from the tip of the greater trochanter, past the fracture, into the intramedullary canal. Proper placement confirmed in both AP and lateral plane using the image intensifier. This was overreamed with a proximal reamer. A long guidewire was placed down the leg all the way down to the knee and was measured for length. The intramedullary canal was reamed to an 11.5 which would facilitate a 10-mm katrina. A right 125-degree long Gamma nail was then malleted into place. Using the outrigger, a small guidewire was drilled from the lateral aspect of the thigh, through the neck, into the head. Proper placement was confirmed in the AP and lateral plane using the image intensifier. This was measured, triple reamed, and screwed with the appropriate-size lag screw. The traction was removed, and the compression device was used to compress the fracture. Set screw was placed from above, locked in to allow compression in the dynamic mode. Using a free-hand technique, 2 small stab incisions, 2 distal interlocks were drilled, depth gauged, and screwed with the appropriate-size screws. Proper placement of all hardware with excellent reduction of the fracture was confirmed in the AP and lateral plane using the image intensifier. The incision was closed in 0 Vicryl, 2-0 for subcutaneous, and anaid for the skin. A sterile pressure dressing was applied. Patient awakened from anesthesia and transferred to Recovery in stable condition. No complications. Estimated blood loss negligible. Santy CANALES/[id number]
[2017-10-13] MEDS: oxyCODONE HCL 5 MG TABLET PO PRN ×2 (16:01→21:39)
[2017-10-13] MEDS ORDERED: ceFAZolin SODIUM 1 GM VIAL ONE (16:44)
[2017-10-13] MEDS ORDERED: DEXTROSE 5%-WATER - 50 ML IVPB ONE (16:45)
[2017-10-13] MEDS: CEFAZOLIN 1 GM in DEXTROSE 5%-WATER - 50 ML IVPB SCH (17:44)
[2017-10-13] MEDS: DEXTROSE 5%-0.45% SALINE 1,000 ML IV SCH (17:46)
[2017-10-13] MEDS ORDERED: CEFAZOLIN 1 GM/D5W 50 ML IVPB SCH (19:00)
[2017-10-13] MEDS ORDERED: CEFAZOLIN 1 GM in DEXTROSE 5%-WATER - 50 ML IVPB SCH (19:00)
[2017-10-13] MEDS: ATORVASTATIN CA 20 MG TABLET (FP) PO SCH (21:40)
[2017-10-14] MEDS: morphine SULFATE 4 MG/ML VIAL IVPUSH PRN ×4 (00:05→19:14)
[2017-10-14] MEDS: ONDANSETRON 4 MG/2 ML VIAL IVPUSH PRN ×2 (00:05→06:18)
[2017-10-14] MEDS ORDERED: DEXTROSE 5%-WATER - 50 ML IVPB ONE (00:33)
[2017-10-14] MEDS ORDERED: ceFAZolin SODIUM 1 GM VIAL ONE (00:33)
[2017-10-14] MEDS: CEFAZOLIN 1 GM in DEXTROSE 5%-WATER - 50 ML IVPB SCH (01:17)
[2017-10-14] MEDS: DEXTROSE 5%-0.45% SALINE 1,000 ML IV SCH (05:44)
[2017-10-14 07:43] LABS: BASO % 0.3 % (0-2.0); EOS % 0.7 % (0-4.5); HEMATOCRIT 28.5 % (32.4-45.2); HEMOGLOBIN 9.7 GM/dL (10.7-15.3); LYMPH % 13.7 % (8-40); MCH 30.8 pg (25.7-33.7); MCHC 34.2 g/dl (32.0-36.0); MEAN PLT VOLUME 7.9 fl (7.5-11.1); NEUT % 71.3 % (42.8-82.8); PLATELET COUNT 257 K/MM3 (134-434); RBC 3.16 M/mm3 (3.60-5.2); RDW 12.9 % (11.6-15.6); WHITE BLOOD COUNT 9.5 K/mm3 (4.0-10.0)
--- NOTE | 2017-10-14 08:09 | PN ---
Progress Note, Physician Chief Complaint: S/P gamma nailing under spinal anesthesia History of Present Illness: post op day one - Current Medication List Current Medications: Active Medications Acetaminophen (Tylenol -) 650 mg PO Q6H PRN PRN Reason: PAIN LEVEL 1-5 Last Admin: 10/13/17 17:44 Dose: 650 mg Albuterol/Ipratropium (Duoneb -) 1 amp NEB Q4H PRN PRN Reason: ASTHMA Amlodipine Besylate (Norvasc -) 5 mg PO DAILY [facility] Atorvastatin Calcium (Lipitor -) 20 mg PO HS [facility] Last Admin: 10/13/17 21:40 Dose: 20 mg Enoxaparin Sodium (Lovenox -) 40 mg SQ DAILY [facility] Fentanyl (Sublimaze Injection -) 25 mcg IVPUSH [id number] PRN PRN Reason: PAIN-PACU ORDER X 4 DOSES ONLY Dextrose/Sodium Chloride (D5-1/2ns -) 1,000 mls @ 83 mls/hr IV ASDIR [facility] Last Admin: 10/14/17 05:44 Dose: 83 mls/hr Lactated Ringer's (Lactated Ringers Solution) 1,000 mls @ 75 mls/hr IV ASDIR [facility] Last Admin: 10/13/17 13:00 Dose: 100 mls Morphine Sulfate (Morphine Sulfate) 4 mg IVPUSH Q4H PRN PRN Reason: PAIN LEVEL 6-10 Last Admin: 10/14/17 06:18 Dose: 4 mg Non-Formulary Medication (Fluticasone/Vilanterol [Breo Ellipta 100-25 Mcg Inh]) 1 each IH DAILY [facility] Ondansetron HCl (Zofran Injection) 4 mg IVPUSH Q6H PRN PRN Reason: NAUSEA AND/OR VOMITING Last Admin: 10/14/17 06:18 Dose: 4 mg Oxycodone HCl (Roxicodone -) 5 mg PO Q4H PRN PRN Reason: PAIN LEVEL 1-5 Stop: 10/14/17 11:40 Last Admin: 10/13/17 21:39 Dose: 5 mg Pantoprazole Sodium (Protonix Iv) 40 mg IVPUSH DAILY [facility] Promethazine HCl (Phenergan Injection -) 12.5 mg IVPB Q6H PRN PRN Reason: NAUSEA-FOR RESCUE AFTER 15 MIN Valsartan (Diovan -) 160 mg PO DAILY [facility] - Objective Vital Signs: Vital Signs Temperature 98.2 F 10/14/17 05:42 Pulse Rate 82 10/14/17 05:42 Respiratory Rate 20 10/14/17 05:42 Blood Pressure 116/72 10/14/17 05:42 O2 Sat by Pulse Oximetry (%) 100 10/13/17 14:00 Constitutional: Yes: Well Nourished Cardiovascular: Yes: WNL Respiratory: Yes: WNL Gastrointestinal: Yes: WNL Labs: CBC, BMP 10/14/17 07:15 INR, PTT INR 1.00 (0.82-1.09) 10/12/17 14:45 Assessment/Plan Pain under control, complained of some confusion overnight, unlikely anesthesia related, no other complaints. Dept of anesthesia will sign off care at this time.
[2017-10-14 08:11] LABS: CHLORIDE 99 mmol/L (98-107); POTASSIUM 3.2 mmol/L (3.5-5.1); SODIUM 135 mmol/L (136-145)
[2017-10-14 08:19] LABS: ALBUMIN 2.8 g/dl (3.4-5.0); ALK PHOS 61 U/L (45-117); ANION GAP 9 (8-16); BILIRUBIN,TOTAL 0.6 mg/dL (0.2-1.0); BLOOD UREA NITROGEN 9 mg/dL (7-18); CALCIUM 7.9 mg/dL (8.5-10.1); CO2 27 mmol/L (21-32); CREATININE 0.6 mg/dL (0.55-1.02); GLUCOSE,RANDOM 135 mg/dL (74-106); MAGNESIUM 1.6 mg/dL (1.8-2.4); SGOT/AST 15 U/L (15-37); SGPT/ALT 14 U/L (12-78); TOT PROT 5.6 g/dl (6.4-8.2)
[2017-10-14] MEDS: VALSARTAN 160 MG TABLET (UD) PO SCH (09:17)
[2017-10-14] MEDS: ENOXAPARIN NA (PORCINE) 40 MG/0.4 ML DISP.SYRIN SQ SCH (09:18)
[2017-10-14] MEDS: amLODIPine BESYLATE 5 MG TABLET (FP) PO SCH (09:18)
[2017-10-14] MEDS ORDERED: PANTOPRAZOLE SODIUM 40 MG VIAL IVPUSH SCH (10:00)
[2017-10-14] MEDS ORDERED: ENOXAPARIN NA (PORCINE) 40 MG/0.4 ML DISP.SYRIN SQ SCH (10:00)
[2017-10-14] MEDS ORDERED: oxyCODONE HCL 5 MG TABLET PO PRN (10:01)
[2017-10-14] MEDS ORDERED: MAGNESIUM 2GM/50ML STERILE WATER IVPB IVPB ONE (10:30)
[2017-10-14] MEDS ORDERED: POTASSIUM CHLORIDE TABS 20 MEQ TABLET.ER (FP) PO ONE (10:30)
--- NOTE | 2017-10-14 10:46 | PN ---
Progress Note, Physician Chief Complaint: Pt lying in bed in no acute distress. During assessment and with minor movement , pt reports severe incisional pain. Encouraged pt to utilize pain meds. Otherwise, denies chest pain, sob, n/v/d, or unilateral weakness. - Current Medication List Current Medications: Active Medications Acetaminophen (Tylenol -) 650 mg PO Q6H REPLACED BY [facility] Albuterol/Ipratropium (Duoneb -) 1 amp NEB Q4H PRN PRN Reason: ASTHMA Amlodipine Besylate (Norvasc -) 5 mg PO DAILY [facility] Last Admin: 10/14/17 09:18 Dose: 5 mg Atorvastatin Calcium (Lipitor -) 20 mg PO HS [facility]PL[facility] BY [facility] Last Admin: 10/13/17 21:40 Dose: 20 mg Enoxaparin Sodium (Lovenox -) 40 mg SQ DAILY [facility] Last Admin: 10/14/17 09:18 Dose: 40 mg Potassium Chloride 10 meq/ (Sodium Chloride) 105 mls @ 100 mls/hr IVPB Q60M REPLACED BY [facility] Stop: 10/14/17 11:59 Potassium Chloride 20 meq/ (Sodium Chloride) 260 mls @ 130 mls/hr IVPB ONCE ONE Stop: 10/14/17 13:59 Morphine Sulfate (Morphine Sulfate) 4 mg IVPUSH Q4H PRN PRN Reason: PAIN LEVEL 6-10 Last Admin: 10/14/17 06:18 Dose: 4 mg Non-Formulary Medication (Fluticasone/Vilanterol [Breo Ellipta 100-25 Mcg Inh]) 1 each IH DAILY [facility] Ondansetron HCl (Zofran -) 4 mg PO Q6H PRN PRN Reason: NAUSEA Oxycodone HCl (Roxicodone -) 5 mg PO Q4H PRN PRN Reason: PAIN LEVEL 6-10 Stop: 10/14/17 11:40 Oxycodone HCl (Roxicodone -) 2.5 mg PO Q4H PRN PRN Reason: PAIN LEVEL 4 - 6 Pantoprazole Sodium (Protonix -) 40 mg PO DAILY [facility] Valsartan (Diovan -) 160 mg PO DAILY [facility] Last Admin: 10/14/17 09:17 Dose: 160 mg - Objective Vital Signs: Vital Signs Temperature 98.2 F 10/14/17 05:42 Pulse Rate 82 10/14/17 05:42 Respiratory Rate 20 10/14/17 05:42 Blood Pressure 116/72 10/14/17 05:42 O2 Sat by Pulse Oximetry (%) 100 10/13/17 14:00 Constitutional: Yes: Well Nourished, No Distress, Calm Cardiovascular: Yes: WNL, Regular Rate and Rhythm. No: Gallop, Murmur Respiratory: Yes: WNL, Regular, CTA Bilaterally. No: Accessory Muscle Use, Rales, SOB, Tachypnea, Wheezes Gastrointestinal: Yes: WNL, Normal Bowel Sounds, Soft. No: Distention, Tenderness Genitourinary: Yes: WNL Extremities: Yes: WNL. No: Cool, Erythema, Pallor Edema: Yes Edema: LLE: Trace, RLE: Trace Wound/Incision: Yes: Clean/Dry, Dressing Dry and Intact (RLE). No: Reddened, Bleeding Neurological: Yes: WNL, Alert, Oriented Psychiatric: Yes: WNL, Alert, Oriented Labs: CBC, BMP 10/14/17 07:15 10/14/17 07:15 INR, PTT INR 1.00 (0.82-1.09) 10/12/17 14:45 Problem List - Problems (1) Hip fracture Assessment/Plan: right comminuted intertrochanteric fracture s/p gamma nail surgery, POD-1 dressing cdi adequate pain control- tylenol scheduled, roxicodone/morphine prn PT SNF dvt prophylaxis ortho following Code(s): S72.009A - FRACTURE OF UNSP PART OF NECK OF UNSP FEMUR, INIT Qualifiers: Encounter type: initial encounter Fracture type: closed Laterality: right Qualified Code(s): S72.001A - Fracture of unspecified part of neck of right femur, initial encounter for closed fracture (2) HLD (hyperlipidemia) Assessment/Plan: chronic, stable continue statin Code(s): E78.5 - HYPERLIPIDEMIA, UNSPECIFIED (3) HTN (hypertension) Assessment/Plan: controlled continue amlodipine and valsartan Code(s): I10 - ESSENTIAL (PRIMARY) HYPERTENSION Qualifiers: Hypertension type: essential hypertension Qualified Code(s): I10 - Essential (primary) hypertension (4) DVT prophylaxis Assessment/Plan: s/p right hip surgery lovenox 40mg daily scds ambulation encouraged Code(s): [id number] - (5) Hypokalemia Assessment/Plan: K level 3.2, asymptomatic PO KCL 40meq x 1 IV KCL 10meq x 3 runs monitor bmp Code(s): E87.6 - HYPOKALEMIA (6) Hypomagnesemia Assessment/Plan: Mg level 1.6 IV Mg 2g x once monitor labs Code(s): E83.42 - HYPOMAGNESEMIA (7) History of GI bleed Assessment/Plan: stable, hx of angiodysplasia monitor h/h Code(s): Z87.19 - PERSONAL HISTORY OF OTHER DISEASES OF THE DIGESTIVE SYSTEM (8) S/P resection of meningioma Assessment/Plan: resolved Code(s): Z98.890 - OTHER SPECIFIED POSTPROCEDURAL STATES; Z86.018 - PERSONAL HISTORY OF OTHER BENIGN NEOPLASM (9) History of hepatitis C Assessment/Plan: Treated and cured Code(s): Z86.19 - PERSONAL HISTORY OF OTHER INFECTIOUS AND PARASITIC DISEASES (10) History of vertigo Assessment/Plan: stable Code(s): Z87.898 - PERSONAL HISTORY OF OTHER SPECIFIED CONDITIONS (11) Asthma Assessment/Plan: stable continue breo-ellipta Code(s): J45.909 - UNSPECIFIED ASTHMA, UNCOMPLICATED Qualifiers: Asthma severity: mild Asthma persistence: intermittent Asthma complication type: uncomplicated Qualified Code(s): J45.20 - Mild intermittent asthma, uncomplicated Assessment/Plan Dispo: [facility]
[2017-10-14] MEDS ORDERED: POTASSIUM CHLORIDE 10 MEQ in SODIUM CHLORIDE 100 ML IVPB SCH (11:00)
[2017-10-14] MEDS ORDERED: POTASSIUM CHLORIDE 20 MEQ in SODIUM CHLORIDE 250 ML IVPB ONE (12:00)
[2017-10-14] MEDS: PANTOPRAZOLE 40 MG TABLET (FP) PO SCH (12:06)
[2017-10-14] MEDS: ACETAMINOPHEN 325 MG TABLET (FP) PO SCH ×2 (12:06→17:59)
--- NOTE | 2017-10-14 14:46 | PN ---
Progress Note (short form) - Note Progress Note: AVSS COMFRTABLE BANDAGES DRY AND INTACT CALF SOFT AND NT NVI IMP: OING WELL PLAN: OOB PT DC PLANNING
[2017-10-14] MEDS: ATORVASTATIN CA 20 MG TABLET (FP) PO SCH (21:49)
[2017-10-15] MEDS: ACETAMINOPHEN 325 MG TABLET (FP) PO SCH ×5 (00:27→23:51)
[2017-10-15] MEDS: oxyCODONE HCL 5 MG TABLET PO PRN (07:32)
[2017-10-15] MEDS: ONDANSETRON 4 MG TABLET PO PRN (07:33)
[2017-10-15] MEDS: morphine SULFATE 4 MG/ML VIAL IVPUSH PRN ×2 (08:37→23:50)
[2017-10-15] MEDS ORDERED: POTASSIUM CHLORIDE ORAL LIQUID 20 MEQ/15 ML PO ONE (09:21)
--- NOTE | 2017-10-15 09:23 | PN ---
Progress Note, Physician Chief Complaint: C/o Rt knee pain - Current Medication List Current Medications: Active Medications Acetaminophen (Tylenol -) 650 mg PO Q6HPO [facility] Last Admin: 10/15/17 05:24 Dose: 650 mg Albuterol/Ipratropium (Duoneb -) 1 amp NEB Q4H PRN PRN Reason: ASTHMA Amlodipine Besylate (Norvasc -) 5 mg PO DAILY [facility] Last Admin: 10/14/17 09:18 Dose: 5 mg Atorvastatin Calcium (Lipitor -) 20 mg PO HS [facility] Last Admin: 10/14/17 21:49 Dose: 20 mg Enoxaparin Sodium (Lovenox -) 40 mg SQ DAILY [facility] Last Admin: 10/14/17 09:18 Dose: 40 mg Morphine Sulfate (Morphine Sulfate) 2 mg IVPUSH Q4H PRN PRN Reason: PAIN LEVEL 6-10 Last Admin: 10/15/17 08:37 Dose: 2 mg Non-Formulary Medication (Fluticasone/Vilanterol [Breo Ellipta 100-25 Mcg Inh]) 1 each IH DAILY [facility] Ondansetron HCl (Zofran -) 4 mg PO Q6H PRN PRN Reason: NAUSEA Last Admin: 10/15/17 07:33 Dose: 4 mg Oxycodone HCl (Roxicodone -) 2.5 mg PO Q4H PRN PRN Reason: PAIN LEVEL 4 - 6 Last Admin: 10/15/17 07:32 Dose: 2.5 mg Pantoprazole Sodium (Protonix -) 40 mg PO DAILY [facility] Last Admin: 10/14/17 12:06 Dose: 40 mg Potassium Chloride (Potassium Chloride Oral Liquid) 40 meq PO ONCE ONE Stop: 10/15/17 09:22 Valsartan (Diovan -) 160 mg PO DAILY [facility] Last Admin: 10/14/17 09:17 Dose: 160 mg - Objective Vital Signs: Vital Signs Temperature 98.6 F 10/15/17 06:17 Pulse Rate 86 10/15/17 06:17 Respiratory Rate 20 10/15/17 06:17 Blood Pressure 107/63 10/15/17 06:17 O2 Sat by Pulse Oximetry (%) 100 10/13/17 14:00 Elderly F c/o Rt knee pain HEENT: Mm moist, no anemia, PERRLA EOMI NECK; No JVD No Bruit CHEST: CTA B/L CVS; S1S2 R no m/g/r ABD: No distention non tender EXT: s/p Rt Hip surgery Rt knee swelling + 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 Code(s): S72.009A - FRACTURE OF UNSP PART OF NECK OF UNSP FEMUR, INIT Qualifiers: Encounter type: initial encounter Fracture type: closed Laterality: right Qualified Code(s): S72.001A - Fracture of unspecified part of neck of right femur, initial encounter for closed fracture (2) Hypokalemia Assessment/Plan: Repleted F/U BMP in am Code(s): E87.6 - HYPOKALEMIA (3) HTN (hypertension) Assessment/Plan: Well controlled cont all home meds Code(s): I10 - ESSENTIAL (PRIMARY) HYPERTENSION Qualifiers: Hypertension type: essential hypertension Qualified Code(s): I10 - Essential (primary) hypertension (4) HLD (hyperlipidemia) Assessment/Plan: On Statin Code(s): E78.5 - HYPERLIPIDEMIA, UNSPECIFIED
[2017-10-15 09:31] LABS: HEMATOCRIT 28.6 % (32.4-45.2); HEMOGLOBIN 9.8 GM/dL (10.7-15.3); MCH 30.9 pg (25.7-33.7); MCHC 34.1 g/dl (32.0-36.0); MEAN CELL VOLUME 90.6 fl (80-96); MEAN PLT VOLUME 7.8 fl (7.5-11.1); PLATELET COUNT 253 K/MM3 (134-434); RBC 3.16 M/mm3 (3.60-5.2); RDW 12.6 % (11.6-15.6); WHITE BLOOD COUNT 9.2 K/mm3 (4.0-10.0)
[2017-10-15] MEDS ORDERED: PT OWN MED DRAWER 7, Y5N ONE (09:36)
[2017-10-15] MEDS: VALSARTAN 160 MG TABLET (UD) PO SCH (09:39)
[2017-10-15] MEDS: ENOXAPARIN NA (PORCINE) 40 MG/0.4 ML DISP.SYRIN SQ SCH (09:39)
[2017-10-15] MEDS: amLODIPine BESYLATE 5 MG TABLET (FP) PO SCH (09:39)
[2017-10-15] MEDS: PANTOPRAZOLE 40 MG TABLET (FP) PO SCH (09:39)
[2017-10-15] MEDS: ATORVASTATIN CA 20 MG TABLET (FP) PO SCH (21:20)
[2017-10-15] MEDS ORDERED: MELATONIN 5 MG TABLETS PO ONE (22:30)
[2017-10-16] MEDS: oxyCODONE HCL 5 MG TABLET PO PRN ×3 (01:38→21:54)
[2017-10-16] MEDS: ACETAMINOPHEN 325 MG TABLET (FP) PO SCH ×4 (06:10→23:18)
[2017-10-16 08:58] LABS: BASO % 0.7 % (0-2.0); EOS % 5.1 % (0-4.5); HEMOGLOBIN 9.3 GM/dL (10.7-15.3); LYMPH % 23.7 % (8-40); MCH 31.3 pg (25.7-33.7); MCHC 34.3 g/dl (32.0-36.0); MEAN CELL VOLUME 91.1 fl (80-96); MEAN PLT VOLUME 8.2 fl (7.5-11.1); MONO % 10.1 % (3.8-10.2); NEUT % 60.4 % (42.8-82.8); PLATELET COUNT 246 K/MM3 (134-434); RBC 2.96 M/mm3 (3.60-5.2); RDW 12.6 % (11.6-15.6)
[2017-10-16] MEDS: VALSARTAN 160 MG TABLET (UD) PO SCH (08:58)
[2017-10-16] MEDS: PANTOPRAZOLE 40 MG TABLET (FP) PO SCH (08:58)
[2017-10-16] MEDS: ENOXAPARIN NA (PORCINE) 40 MG/0.4 ML DISP.SYRIN SQ SCH (08:59)
[2017-10-16] MEDS: amLODIPine BESYLATE 5 MG TABLET (FP) PO SCH (08:59)
[2017-10-16 09:32] LABS: ANION GAP 7 (8-16); BLOOD UREA NITROGEN 10 mg/dL (7-18); CALCIUM 8.3 mg/dL (8.5-10.1); CHLORIDE 102 mmol/L (98-107); CO2 27 mmol/L (21-32); CREATININE 0.6 mg/dL (0.55-1.02); GLUCOSE,RANDOM 129 mg/dL (74-106); POTASSIUM 4.2 mmol/L (3.5-5.1); SODIUM 136 mmol/L (136-145)
--- NOTE | 2017-10-16 10:46 | PN ---
Progress Note, Physician Chief Complaint: C/o Rt knee pain - Current Medication List Current Medications: Active Medications Acetaminophen (Tylenol -) 650 mg PO Q6HPO [facility] Last Admin: 10/16/17 06:10 Dose: 650 mg Albuterol/Ipratropium (Duoneb -) 1 amp NEB Q4H PRN PRN Reason: ASTHMA Amlodipine Besylate (Norvasc -) 5 mg PO DAILY [facility] Last Admin: 10/16/17 08:59 Dose: 5 mg Atorvastatin Calcium (Lipitor -) 20 mg PO HS [facility] Last Admin: 10/15/17 21:20 Dose: 20 mg Enoxaparin Sodium (Lovenox -) 40 mg SQ DAILY [facility] Last Admin: 10/16/17 08:59 Dose: 40 mg Morphine Sulfate (Morphine Sulfate) 2 mg IVPUSH Q4H PRN PRN Reason: PAIN LEVEL 6-10 Last Admin: 10/15/17 23:50 Dose: 2 mg Non-Formulary Medication (Fluticasone/Vilanterol [Breo Ellipta 100-25 Mcg Inh]) 1 each IH DAILY [facility] Ondansetron HCl (Zofran -) 4 mg PO Q6H PRN PRN Reason: NAUSEA Last Admin: 10/15/17 07:33 Dose: 4 mg Oxycodone HCl (Roxicodone -) 2.5 mg PO Q4H PRN PRN Reason: PAIN LEVEL 4 - 6 Last Admin: 10/16/17 01:38 Dose: 2.5 mg Pantoprazole Sodium (Protonix -) 40 mg PO DAILY [facility] Last Admin: 10/16/17 08:58 Dose: 40 mg Valsartan (Diovan -) 160 mg PO DAILY [facility] Last Admin: 10/16/17 08:58 Dose: 160 mg - Objective Vital Signs: Vital Signs Temperature 98.1 F 10/16/17 07:16 Pulse Rate 72 10/16/17 07:16 Respiratory Rate 20 10/16/17 07:16 Blood Pressure 118/68 10/16/17 07:16 O2 Sat by Pulse Oximetry (%) 100 10/13/17 14:00 Elderly F c/o Rt knee pain HEENT: Mm moist, no anemia, PERRLA EOMI NECK; No JVD No Bruit CHEST: CTA B/L CVS; S1S2 R no m/g/r ABD: No distention non tender EXT: s/p Rt Hip surgery 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 Code(s): S72.009A - FRACTURE OF UNSP PART OF NECK OF UNSP FEMUR, INIT Qualifiers: Encounter type: initial encounter Fracture type: closed Laterality: right Qualified Code(s): S72.001A - Fracture of unspecified part of neck of right femur, initial encounter for closed fracture (2) Hypokalemia Assessment/Plan: Resolved K4.2 Code(s): E87.6 - HYPOKALEMIA (3) HTN (hypertension) Assessment/Plan: Well controlled cont all home meds Code(s): I10 - ESSENTIAL (PRIMARY) HYPERTENSION Qualifiers: Hypertension type: essential hypertension Qualified Code(s): I10 - Essential (primary) hypertension (4) HLD (hyperlipidemia) Assessment/Plan: On Statin Code(s): E78.5 - HYPERLIPIDEMIA, UNSPECIFIED
[2017-10-16] MEDS: morphine SULFATE 4 MG/ML VIAL IVPUSH PRN (20:27)
[2017-10-16] MEDS: ATORVASTATIN CA 20 MG TABLET (FP) PO SCH (21:58)
[2017-10-17] MEDS: ACETAMINOPHEN 325 MG TABLET (FP) PO SCH ×4 (05:29→23:13)
[2017-10-17 07:51] LABS: CHLORIDE 103 mmol/L (98-107); POTASSIUM 4.2 mmol/L (3.5-5.1); SODIUM 137 mmol/L (136-145)
[2017-10-17] MEDS: amLODIPine BESYLATE 5 MG TABLET (FP) PO SCH ×2 (07:57→09:28)
[2017-10-17] MEDS: PANTOPRAZOLE 40 MG TABLET (FP) PO SCH ×2 (07:57→09:28)
[2017-10-17] MEDS: VALSARTAN 160 MG TABLET (UD) PO SCH ×2 (07:57→09:28)
[2017-10-17 07:58] LABS: ANION GAP 7 (8-16); BLOOD UREA NITROGEN 11 mg/dL (7-18); CALCIUM 8.2 mg/dL (8.5-10.1); CO2 27 mmol/L (21-32); CREATININE 0.5 mg/dL (0.55-1.02); GLUCOSE,RANDOM 91 mg/dL (74-106)
[2017-10-17 08:02] LABS: BASO % 0.8 % (0-2.0); EOS % 5.4 % (0-4.5); HEMATOCRIT 27.8 % (32.4-45.2); HEMOGLOBIN 9.4 GM/dL (10.7-15.3); LYMPH % 22.7 % (8-40); MCH 30.7 pg (25.7-33.7); MCHC 33.9 g/dl (32.0-36.0); MEAN CELL VOLUME 90.5 fl (80-96); MEAN PLT VOLUME 8.1 fl (7.5-11.1); MONO % 11.5 % (3.8-10.2); NEUT % 59.6 % (42.8-82.8); PLATELET COUNT 324 K/MM3 (134-434); RBC 3.07 M/mm3 (3.60-5.2); RDW 12.9 % (11.6-15.6); WHITE BLOOD COUNT 7.3 K/mm3 (4.0-10.0)
[2017-10-17] MEDS: ENOXAPARIN NA (PORCINE) 40 MG/0.4 ML DISP.SYRIN SQ SCH (09:28)
[2017-10-17] MEDS: ONDANSETRON 4 MG TABLET PO PRN ×2 (09:30→15:41)
[2017-10-17] MEDS ORDERED: POLYETHYLENE GLYCOL 3350 119 GM BTL PO SCH (11:45)
[2017-10-17] MEDS: oxyCODONE HCL 5 MG TABLET PO PRN ×2 (11:47→18:04)
--- NOTE | 2017-10-17 12:32 | PN ---
Progress Note, Physician Chief Complaint: Pt sitting in chair in no acute distress. reports pain controlled, appears comfortable. reports increased urinary frequency, denies dysuria. Otherwise, denies chest pain, sob, n/v/d, or unilateral weakness. - Current Medication List Current Medications: Active Medications Acetaminophen (Tylenol -) 650 mg PO Q6HPO [facility] Last Admin: 10/17/17 12:13 Dose: 650 mg Albuterol/Ipratropium (Duoneb -) 1 amp NEB Q4H PRN PRN Reason: ASTHMA Last Admin: 10/16/17 20:10 Dose: 1 amp Amlodipine Besylate (Norvasc -) 5 mg PO DAILY [facility] Last Admin: 10/17/17 09:28 Dose: 5 mg Atorvastatin Calcium (Lipitor -) 20 mg PO HS [facility] Last Admin: 10/16/17 21:58 Dose: 20 mg Bisacodyl (Dulcolax -) 20 mg PO ONCE ONE Stop: 10/17/17 11:43 Docusate Sodium (Colace -) 100 mg PO TID [facility] Enoxaparin Sodium (Lovenox -) 40 mg SQ DAILY [facility] Last Admin: 10/17/17 09:28 Dose: 40 mg Non-Formulary Medication (Fluticasone/Vilanterol [Breo Ellipta 100-25 Mcg Inh]) 1 each IH DAILY [facility] Ondansetron HCl (Zofran -) 4 mg PO Q6H PRN PRN Reason: NAUSEA Last Admin: 10/17/17 09:30 Dose: 4 mg Oxycodone HCl (Roxicodone -) 2.5 mg PO Q4H PRN PRN Reason: PAIN LEVEL 4 - 6 Last Admin: 10/17/17 11:47 Dose: 2.5 mg Oxycodone HCl (Roxicodone -) 5 mg PO Q4H PRN PRN Reason: PAIN LEVEL 6-10 Pantoprazole Sodium (Protonix -) 40 mg PO DAILY [facility] Last Admin: 10/17/17 09:28 Dose: 40 mg Polyethylene Glycol (Miralax (For Daily Use) -) 17 gm PO BID [facility] Valsartan (Diovan -) 160 mg PO DAILY [facility] Last Admin: 10/17/17 09:28 Dose: 160 mg - Objective Vital Signs: Vital Signs Temperature 97.5 F L 10/17/17 09:00 Pulse Rate 81 06/11/18 09:00 Respiratory Rate 18 10/17/17 09:00 Blood Pressure 119/73 10/17/17 09:00 O2 Sat by Pulse Oximetry (%) 100 10/13/17 14:00 Constitutional: Yes: Well Nourished, No Distress, Calm Cardiovascular: Yes: WNL, Regular Rate and Rhythm. No: Gallop, Murmur Respiratory: Yes: WNL, Regular, CTA Bilaterally. No: Accessory Muscle Use, SOB , Tachypnea, Wheezes Gastrointestinal: Yes: WNL, Normal Bowel Sounds, Soft. No: Distention, Tenderness Genitourinary: Yes: Other (increased frequency) Edema: Yes Edema: LLE: Trace, RLE: Trace Wound/Incision: Yes: Clean/Dry, Dressing Dry and Intact Neurological: Yes: WNL, Alert, Oriented Psychiatric: Yes: WNL, Alert, Oriented Labs: CBC, BMP 10/17/17 06:00 10/17/17 06:00 INR, PTT INR 1.00 (0.82-1.09) 10/12/17 14:45 Problem List - Problems (1) Hip fracture Code(s): S72.009A - FRACTURE OF UNSP PART OF NECK OF UNSP FEMUR, INIT Qualifiers: Encounter type: initial encounter Fracture type: closed Laterality: right Qualified Code(s): S72.001A - Fracture of unspecified part of neck of right femur, initial encounter for closed fracture (2) HLD (hyperlipidemia) Code(s): E78.5 - HYPERLIPIDEMIA, UNSPECIFIED (3) HTN (hypertension) Code(s): I10 - ESSENTIAL (PRIMARY) HYPERTENSION Qualifiers: Hypertension type: essential hypertension Qualified Code(s): I10 - Essential (primary) hypertension (4) DVT prophylaxis Code(s): [id number] - (5) Hypokalemia Code(s): E87.6 - HYPOKALEMIA (6) Hypomagnesemia Code(s): E83.42 - HYPOMAGNESEMIA (7) History of GI bleed Code(s): Z87.19 - PERSONAL HISTORY OF OTHER DISEASES OF THE DIGESTIVE SYSTEM (8) S/P resection of meningioma Code(s): Z98.890 - OTHER SPECIFIED POSTPROCEDURAL STATES; Z86.018 - PERSONAL HISTORY OF OTHER BENIGN NEOPLASM (9) History of hepatitis C Code(s): Z86.19 - PERSONAL HISTORY OF OTHER INFECTIOUS AND PARASITIC DISEASES (10) History of vertigo Code(s): Z87.898 - PERSONAL HISTORY OF OTHER SPECIFIED CONDITIONS (11) Asthma Code(s): J45.909 - UNSPECIFIED ASTHMA, UNCOMPLICATED Qualifiers: Asthma severity: mild Asthma persistence: intermittent Asthma complication type: uncomplicated Qualified Code(s): J45.20 - Mild intermittent asthma, uncomplicated (12) S/P ORIF (open reduction internal fixation) fracture Code(s): Z96.7 - PRESENCE OF OTHER BONE AND TENDON IMPLANTS; Z87.81 - PERSONAL HISTORY OF (HEALED) TRAUMATIC FRACTURE (13) Urinary frequency Code(s): R35.0 - FREQUENCY OF MICTURITION (14) Constipation Code(s): K59.00 - CONSTIPATION, UNSPECIFIED Qualifiers: Constipation type: drug induced constipation Qualified Code(s): K59.03 - Drug induced constipation Assessment/Plan (1) Hip fracture Assessment/Plan: right comminuted intertrochanteric fracture s/p gamma nail surgery, POD-4 dressing cdi adequate pain control- tylenol scheduled, roxicodone prn PT SNF dvt prophylaxis ortho following Code(s): S72.009A - FRACTURE OF UNSP PART OF NECK OF UNSP FEMUR, INIT Qualifiers: Encounter type: initial encounter Fracture type: closed Laterality: right Qualified Code(s): S72.001A - Fracture of unspecified part of neck of right femur, initial encounter for closed fracture (2) HLD (hyperlipidemia) Assessment/Plan: chronic, stable continue statin Code(s): E78.5 - HYPERLIPIDEMIA, UNSPECIFIED (3) HTN (hypertension) Assessment/Plan: controlled continue amlodipine and valsartan Code(s): I10 - ESSENTIAL (PRIMARY) HYPERTENSION Qualifiers: Hypertension type: essential hypertension Qualified Code(s): I10 - Essential (primary) hypertension (4) DVT prophylaxis Assessment/Plan: s/p right hip surgery lovenox 40mg daily scds ambulation encouraged Code(s): [id number] - (5) Urinary frequency Assessment/Plan: pt reporting urinary frequency denies dysuria UA/UC ordered Code(s): R35.0 - FREQUENCY OF MICTURITION (6) Constipation Assessment/Plan: multifactorial- age/post-op/opiod induced colace tid miralax bid dulcolax x 1 will monitor Code(s): K59.00 - CONSTIPATION, UNSPECIFIED Qualifiers: Constipation type: drug induced constipation Qualified Code(s): K59.03 - Drug induced constipation (7) History of GI bleed Assessment/Plan: stable, hx of angiodysplasia monitor h/h Code(s): Z87.19 - PERSONAL HISTORY OF OTHER DISEASES OF THE DIGESTIVE SYSTEM (8) S/P resection of meningioma Assessment/Plan: resolved Code(s): Z98.890 - OTHER SPECIFIED POSTPROCEDURAL STATES; Z86.018 - PERSONAL HISTORY OF OTHER BENIGN NEOPLASM (9) History of hepatitis C Assessment/Plan: Treated and cured Code(s): Z86.19 - PERSONAL HISTORY OF OTHER INFECTIOUS AND PARASITIC DISEASES (10) History of vertigo Assessment/Plan: stable Code(s): Z87.898 - PERSONAL HISTORY OF OTHER SPECIFIED CONDITIONS (11) Asthma Assessment/Plan: stable continue breo-ellipta Code(s): J45.909 - UNSPECIFIED ASTHMA, UNCOMPLICATED Qualifiers: Asthma severity: mild Asthma persistence: intermittent Asthma complication type: uncomplicated Qualified Code(s): J45.20 - Mild intermittent asthma, uncomplicated Dispo: SNF. awaiting bm. need to r/o uti. plan discussed with daughter Carolyn.
[2017-10-17] MEDS ORDERED: BISACODYL 5 MG TABLET.DR (FP) PO ONE (12:45)
[2017-10-17] MEDS ORDERED: oxyCODONE HCL 5 MG TABLET PO ONE (13:45)
[2017-10-17] MEDS: DOCUSATE SODIUM 100 MG CAPSULE (FP) PO SCH ×2 (14:15→21:33)
[2017-10-17] MEDS: POLYETHYLENE GLYCOL 3350 119 GM BTL PO SCH ×2 (14:15→21:33)
[2017-10-17 16:14] LABS: URINE APPEARANCE CLEAR; URINE BILIRUBIN NEGATIVE (<2.0 mg/dL); URINE BLOOD NEGATIVE (NEGATIVE); URINE COLOR YELLOW; URINE GLUCOSE (UA) NEGATIVE (NEGATIVE); URINE KETONE NEGATIVE (NEGATIVE); URINE LEUK ESTERASE NEGATIVE (NEGATIVE); URINE NITRITE NEGATIVE (NEGATIVE); URINE PROTEIN NEGATIVE (NEGATIVE); URINE UROBILINOGEN 4.0 E.U/dl mg/dL (0.2-1.0)
--- NOTE | 2017-10-17 20:14 | CONSULT ---
Consult Consult Specialty:: Pain Management Reason for Consultation:: Rt Leg Pain - History of Present Illness History of Present Illness: 81 yr old female with multiple medical cormorbidity with h/o fall and RT Hip Fracture s/o ORIF. Pain 10/16 . difficulty in ambulation. 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 No: CAD Pulmonary: Yes: Asthma Gastrointestinal: Yes: Diverticulosis, GERD, GI Bleed, Hemorrhoids, Hiatal Hernia, Other (right colon angiodysplasia, colon adenomas, gastric fundic gland and hyperplastic polyps) Hepatobiliary: Yes: Hepatitis C (never treated ) Musculoskeletal: Yes: Osteoarthritis, Other (osteoporosis) Endocrine: Yes: Other (thyroid cancer surgery) - Past Surgical History Past Surgical History: Yes: Appendectomy, Colonoscopy (colon adenomas removed, diverticulosis and right colon AVM seen), Craniotomy (for menongioma), Hysterectomy, Upper Endoscopy (gastric polyps removed) - Alcohol/Substance Use Hx Alcohol Use: No History of Substance Use: reports: None - Smoking History Smoking history: Never smoked Have you smoked in the past 12 months: No Aproximately how many cigarettes per day: 0 - Social History Usual Living Arrangement: With Spouse ADL: Independent History of Recent Travel: No Home Medications - Allergies Allergies/Adverse Reactions: Allergies Allergy/AdvReac Type Severity Reaction Status Date / Time Penicillins Allergy Unknown Verified 10/12/17 16:15 codeine [Codeine] Allergy Verified 10/12/17 16:15 - Home Medications Home Medications: Ambulatory Orders Simvastatin [Zocor] 20 mg PO HS #0 tablet 06/03/11 Fluticasone/Vilanterol [Breo Ellipta 100-25 Mcg INH] 1 each IH DAILY 12/02/15 Potassium Chloride 20 meq PO BID 03/05/16 Meclizine HCl [Antivert -] 12.5 mg PO TID PRN #30 tablet 05/30/17 Amlodipine Besylate 5 mg PO DAILY 10/12/17 Valsartan [Diovan] 160 mg PO DAILY 10/12/17 Family Disease History - Family Disease History Family Disease History: Other: Grandparent (cervcal ca), Father ( with cva), Mother (HTN, 90) Review of Systems - Review of Systems Constitutional: reports: No Symptoms Eyes: reports: No Symptoms HENT: reports: No Symptoms Neck: reports: No Symptoms Cardiovascular: reports: No Symptoms Respiratory: reports: No Symptoms Gastrointestinal: reports: No Symptoms Genitourinary: reports: No Symptoms Musculoskeletal: reports: Extremity Pain, Other Integumentary: reports: No Symptoms Neurological: reports: No Symptoms Endocrine: reports: No Symptoms Hematology/Lymphatic: reports: No Symptoms Psychiatric: reports: No Symptoms Pain Intensity: 6 Physical Exam Vital Signs: Vital Signs Temperature 98.2 F 10/17/17 18:00 Pulse Rate 86 10/17/17 18:00 Respiratory Rate 20 10/17/17 18:00 Blood Pressure 117/63 10/17/17 18:00 O2 Sat by Pulse Oximetry (%) 97 10/17/17 09:00 Constitutional: Yes: Well Nourished Eyes: Yes: WNL HENT: Yes: WNL Neck: Yes: WNL Musculoskeletal: Yes: Other (Rt Hip and knee tenderness +) Edema: Yes Wound/Incision: Yes: Clean/Dry, Other (dressing +) Neurological: Yes: WNL ...Motor Strength: WNL (RE - weak due to surgery .) Labs: CBC, BMP 10/17/17 06:00 10/17/17 06:00
[2017-10-17] MEDS: ATORVASTATIN CA 20 MG TABLET (FP) PO SCH (21:33)
[2017-10-17] MEDS ORDERED: SENNOSIDES 8.6MG TABLET (FP) PO SCH (22:00)
[2017-10-17] MEDS ORDERED: AMITRIPTYLINE HCL 10 MG TABLET (FP) PO SCH (22:00)
[2017-10-18] MEDS: ACETAMINOPHEN 325 MG TABLET (FP) PO SCH ×2 (05:46→11:22)
[2017-10-18] MEDS: DOCUSATE SODIUM 100 MG CAPSULE (FP) PO SCH ×2 (05:46→14:04)
[2017-10-18 08:04] LABS: BASO % 0.6 % (0-2.0); EOS % 5.5 % (0-4.5); HEMATOCRIT 29.3 % (32.4-45.2); HEMOGLOBIN 9.8 GM/dL (10.7-15.3); LYMPH % 21.2 % (8-40); MCH 30.5 pg (25.7-33.7); MCHC 33.6 g/dl (32.0-36.0); MEAN CELL VOLUME 90.8 fl (80-96); MEAN PLT VOLUME 7.9 fl (7.5-11.1); NEUT % 61.7 % (42.8-82.8); PLATELET COUNT 345 K/MM3 (134-434); RBC 3.23 M/mm3 (3.60-5.2); RDW 12.9 % (11.6-15.6); WHITE BLOOD COUNT 7.6 K/mm3 (4.0-10.0)
[2017-10-18 08:21] LABS: CHLORIDE 101 mmol/L (98-107); SODIUM 136 mmol/L (136-145)
[2017-10-18] MEDS: POLYETHYLENE GLYCOL 3350 119 GM BTL PO SCH (08:59)
[2017-10-18] MEDS: VALSARTAN 160 MG TABLET (UD) PO SCH (08:59)
[2017-10-18] MEDS: amLODIPine BESYLATE 5 MG TABLET (FP) PO SCH (08:59)
[2017-10-18] MEDS: ENOXAPARIN NA (PORCINE) 40 MG/0.4 ML DISP.SYRIN SQ SCH (08:59)
[2017-10-18] MEDS: PANTOPRAZOLE 40 MG TABLET (FP) PO SCH (08:59)
[2017-10-18 09:08] LABS: ANION GAP 10 (8-16); BLOOD UREA NITROGEN 13 mg/dL (7-18); CALCIUM 8.5 mg/dL (8.5-10.1); CO2 25 mmol/L (21-32); CREATININE 0.5 mg/dL (0.55-1.02); GLUCOSE,RANDOM 93 mg/dL (74-106); MAGNESIUM 1.9 mg/dL (1.8-2.4)
[2017-10-18] MEDS: oxyCODONE HCL 5 MG TABLET PO PRN ×2 (11:22→14:58)
--- NOTE | 2017-10-18 11:52 | DS ---
Physical Examination Vital Signs: Vital Signs Temperature 98.6 F 10/18/17 06:00 Pulse Rate 77 10/18/17 06:00 Respiratory Rate 20 10/18/17 06:00 Blood Pressure 119/60 10/18/17 06:00 O2 Sat by Pulse Oximetry (%) 97 10/17/17 20:28 Constitutional: Yes: Well Nourished, No Distress, Calm Cardiovascular: Yes: WNL, Regular Rate and Rhythm. No: Gallop, Murmur Respiratory: Yes: WNL, Regular, CTA Bilaterally. No: Accessory Muscle Use, Rhonchi, SOB, Tachypnea Gastrointestinal: Yes: WNL, Normal Bowel Sounds, Soft. No: Distention, Tenderness Renal/: Yes: WNL Edema: Yes Edema: LLE: Trace, RLE: Trace Wound/Incision: Yes: Dressing Dry and Intact (RIght hip) Neurological: Yes: WNL, Alert, Oriented Psychiatric: Yes: WNL, Alert, Oriented Labs: CBC, BMP 10/18/17 07:00 10/18/17 07:00 Discharge Summary Reason For Visit: FRACTURE OF HIP Current Active Problems Constipation (Acute) DVT prophylaxis (Acute) Hip fracture (Acute) History of GI bleed (Acute) History of hepatitis C (Acute) History of vertigo (Acute) Hypokalemia (Acute) Hypomagnesemia (Acute) S/P ORIF (open reduction internal fixation) fracture (Acute) S/P resection of meningioma (Acute) Urinary frequency (Acute) Hospital Course: is 81 year old female who was admitted with right comminuted intertrochanteric fracture. She is s/p gamma nail surgery, POD-5. Pt cleared by Ortho. She has been doing well. vitals stable, h/h stable,Pain adequately controlled, pt reports increased pain with movement. Pt encouraged to utilize pain meds more for better control. Pt evaluated by pain management. She had complaints of urinary frequency yesterday, UA neg. She also had constipation in which she received colace/senna/miralax. She had a bm today. vital signs stable , labs wnl. Lovenox X 10 MORE DAYS THEN ASPIRIN 325 DAILY X 4 WEEKS. Pt is medically cleared for discharge from hospital to SNF. Condition: Fair - Instructions Diet, Activity, Other Instructions: keep dressing dry and intact PT- WBAT Lovenox 40 mg SQ daily x 2 weeks(10 DAYS LEFT), then ASA 325 mg PO daily x 4 weeks f/u w/ the office in 10-14 days f/u as directed Referrals: Edgar Novak MD [Staff Physician] - 2 Weeks Michael Mariano MD [Primary Care Provider] - 1 Week Pedro Pablo Adamson MD [Staff Physician] - 2 Weeks (pain management as needed) [facility] - Home Medications Comprehensive Discharge Medication List: Ambulatory Orders Simvastatin [Zocor] 20 mg PO HS #0 tablet 06/03/11 Fluticasone/Vilanterol [Breo Ellipta 100-25 Mcg INH] 1 each IH DAILY 12/02/15 Potassium Chloride 20 meq PO BID 03/05/16 Meclizine HCl [Antivert -] 12.5 mg PO TID PRN #30 tablet 05/30/17 Amlodipine Besylate 5 mg PO DAILY 10/12/17 Valsartan [Diovan] 160 mg PO DAILY 10/12/17 Acetaminophen [Tylenol .Regular Strength -] 650 mg PO Q6HPO tablet 10/18/17 Amitriptyline HCl [Elavil -] 10 mg PO HS tablet 10/18/17 Aspirin [ASA -] 325 mg PO DAILY 30 Days #30 tablet 10/18/17 Docusate Sodium [Colace -] 100 mg PO TID capsule 10/18/17 Enoxaparin [Lovenox -] 40 mg SQ DAILY 10 Days disp.syrin 10/18/17 Sennosides [Senna -] 2 tab PO HS tablet 10/18/17 oxyCODONE HCL [Roxicodone -] 2.5 mg PO Q4H PRN tablet MDD 30 10/18/17 oxyCODONE HCL [Roxicodone -] 5 mg PO Q4H PRN tablet MDD 30 10/18/17
[2017-10-18 14:28] VITALS: BP 107/62; PULSE 84; TEMP 98.1
== END 2017-10-18 16:42 | DRG 482 ==
LOC: JER 13:57 → JERBED 18:53 → J6S 22:21
PROVIDERS: ADMIT Internal Medicine; ATTEND Internal Medicine
PROC: 0QS606Z Reposition Right Upper Femur with Intramedullary Internal Fixation Device, Open Approach (ICD-10-PCS; principal; 2017-10-13 11:30)
DX: S72.141A Displaced intertrochanteric fracture of right femur, initial encounter for closed fracture (principal); S72.21XA Displaced subtrochanteric fracture of right femur, initial encounter for closed fracture; E78.5 Hyperlipidemia, unspecified; B19.20 Unspecified viral hepatitis C without hepatic coma; I10 Essential (primary) hypertension; E87.6 Hypokalemia; E83.42 Hypomagnesemia; R35.0 Frequency of micturition; K59.00 Constipation, unspecified; Z88.0 Allergy status to penicillin; W19.XXXA Unspecified fall, initial encounter; Y93.89 Activity, other specified; Y92.89 Other specified places as the place of occurrence of the external cause; Y99.8 Other external cause status; Z85.850 Personal history of malignant neoplasm of thyroid; K57.90 Diverticulosis of intestine, part unspecified, without perforation or abscess without bleeding; J45.20 Mild intermittent asthma, uncomplicated
CPT/HCPCS: 36415; 70450-TC; 71045-TC-FY; 72125-TC; 73523-TC-FY; 76000-TC-FY; 80048; 80053; 81003; 83735; 84100; 85025; 85027; 85610; 85730; 86850; 86900; 86901; 87086; 93005; 93010; 94640; 94760; 97116-GP; 97161-GP; 99283-25; J7030; J7620

== ENCOUNTER 2018-03-08 09:22 | Day surgery (SDC) | payer OTHER, MEDICARE ==
--- NOTE | 2018-03-08 10:08 | HP ---
Satellite PMH - Chief Complaint Chief Complaint: Acute on chronic anemia History of Present Illness: 82 year old female with a PMH of HTN, HLD, asthma, hepatitis C, diverticulosis, right colonic angiodysplesia, recurrent GI bleed, osteoarthritis, vertigo, thyroid cancer s/p resection, meningioma s/p resection comes in for blood transfusion. Hg/hct in office on 03/03/18 was 7.3/22.5. Pt is sent by PCP for satelite admission for 2 units pRBCs transfusion. Pt reports feeling well, chronic fatigue otherwise denies any chest pain, sob, weakness, n/ v/d. 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 (Meningioma resection 4 years earlier) Cardiovascular: Yes: CAD, HTN, Hyperlipdemia Pulmonary: Yes: Asthma Gastrointestinal: Yes: Diverticulosis, GERD, GI Bleed, Hemorrhoids, Hiatal Hernia, Other (right colon angiodysplasia, colon adenomas, gastric fundic gland and hyperplastic polyps) Hepatobiliary: Yes: Cirrhosis, Hepatitis C (never treated ) ...: No Heme/Onc: Yes: Anemia Musculoskeletal: Yes: Osteoarthritis, Other (osteoporosis) Endocrine: Yes: Other (partial thyroidectomy) - Current Medications Current Medications: Home Medications Medication Instructions Recorded Simvastatin [Zocor] 20 mg PO HS #0 tablet 06/03/11 Fluticasone/Vilanterol [Breo 1 each IH DAILY 12/02/15 Ellipta 100-25 Mcg INH] Meclizine HCl [Antivert -] 12.5 mg PO TID PRN #30 tablet 05/30/17 Amlodipine Besylate 5 mg PO DAILY 10/12/17 Amitriptyline HCl [Elavil -] 10 mg PO HS tablet 10/18/17 Losartan Potassium 50 mg PO DAILY 03/08/18 Omeprazole 20 mg PO DAILY 03/08/18 Satellite Physical Exam - Physical Examination General Appearance: Well Nourished, Well Developed, Alert & Oriented x3, No Distress, Calm ENT: No Discharge Lung: Clear to auscultation, Normal air movement Heart: Regular rate & rhythm Breasts: Soft, Non-Tender, No masses bilaterally Abdomen: Soft, No tenderness, Normal bowel sounds Extremities: No edema, No tenderness/swelling Neurological: Intact, Alert, Oriented Satellite Impression/Plan - Impression/Plan Impression: Acute blood loss anemia Operative Procedure: Transfuse 2 units pRBCs. Monitor post op CBC outpt. Continue outpt work up of anemia Date to be Performed: 03/08/18
[2018-03-08 10:40] LABS: BASO % 0.5 % (0-2.0); EOS % 1.9 % (0-4.5); HEMATOCRIT 25.3 % (32.4-45.2); HEMOGLOBIN 7.8 GM/dL (10.7-15.3); LYMPH % 17.3 % (8-40); MCH 24.3 pg (25.7-33.7); MCHC 30.8 g/dl (32.0-36.0); MEAN CELL VOLUME 78.8 fl (80-96); MEAN PLT VOLUME 6.9 fl (7.5-11.1); MONO % 9.9 % (3.8-10.2); NEUT % 70.4 % (42.8-82.8); PLATELET COUNT 528 K/MM3 (134-434); RBC 3.22 M/mm3 (3.60-5.2); RDW 18.2 % (11.6-15.6); WHITE BLOOD COUNT 7.9 K/mm3 (4.0-10.0)
[2018-03-08 11:09] LABS: ANION GAP 9 MMOL/L (8-16); BLOOD UREA NITROGEN 12 mg/dL (7-18); CALCIUM 8.9 mg/dL (8.5-10.1); CHLORIDE 105 mmol/L (98-107); CO2 24 mmol/L (21-32); CREATININE 0.7 mg/dL (0.55-1.3); GLUCOSE,RANDOM 130 mg/dL (74-106); POTASSIUM 3.9 mmol/L (3.5-5.1); SODIUM 138 mmol/L (136-145)
[2018-03-08] MEDS ORDERED: AMITRIPTYLINE HCL 10 MG TABLET (FP) PO SCH (22:00)
[2018-03-08] MEDS ORDERED: ATORVASTATIN CA 10 MG TABLET (FP) PO SCH (22:00)
--- NOTE | 2018-03-09 08:49 | DS ---
Physical Examination Vital Signs: Vital Signs Temperature 98 F 03/09/18 06:00 Pulse Rate 85 03/09/18 06:00 Respiratory Rate 20 03/09/18 06:00 Blood Pressure 151/68 03/09/18 06:00 O2 Sat by Pulse Oximetry (%) Constitutional: Yes: Well Nourished, No Distress, Calm Cardiovascular: Yes: WNL, Regular Rate and Rhythm Respiratory: Yes: WNL, Regular, CTA Bilaterally. No: Accessory Muscle Use, SOB , Tachypnea, Wheezes Gastrointestinal: Yes: WNL, Normal Bowel Sounds, Soft. No: Distention, Tenderness Renal/: Yes: WNL Edema: No Neurological: Yes: WNL, Alert, Oriented Psychiatric: Yes: WNL, Alert, Oriented Labs: CBC, BMP 03/08/18 10:25 03/08/18 10:25 Discharge Summary Reason For Visit: ANEMIA Current Active Problems Acute blood loss anemia (Acute) Hospital Course: 82 year old female admitted for blood transfusion. Hg 7.8, received 2 units, tolerated without issues. Advised pt to follow up with PCP and GI to continue anemia work up. Pt is medically stable for discharge from hospital. Condition: Good - Instructions Referrals: Michael Mariano MD [Staff Physician] - [address] MD [Staff Physician] - Disposition: HOME - Home Medications Comprehensive Discharge Medication List: Ambulatory Orders Simvastatin [Zocor] 20 mg PO HS #0 tablet 06/03/11 Fluticasone/Vilanterol [Breo Ellipta 100-25 Mcg INH] 1 each IH DAILY 12/02/15 Meclizine HCl [Antivert -] 12.5 mg PO TID PRN #30 tablet 05/30/17 Amlodipine Besylate 5 mg PO DAILY 10/12/17 Amitriptyline HCl [Elavil -] 10 mg PO HS tablet 10/18/17 Losartan Potassium 50 mg PO DAILY 03/08/18 Omeprazole 20 mg PO DAILY 03/08/18
[2018-03-09] MEDS ORDERED: amLODIPine BESYLATE 5 MG TABLET (FP) PO SCH (10:00)
[2018-03-09] MEDS ORDERED: LOSARTAN POTASSIUM 50 MG TABLET (FP) PO SCH (10:00)
[2018-03-09 10:41] VITALS: BP 121/81; PULSE 94; TEMP 98.5
== END 2018-03-09 10:29 | disposition home or self-care (01) ==
LOC: JBLOOD 09:22 → J7W 09:31 → JBLOOD 03-09 10:29
PROVIDERS: ATTEND Specialist
PROC: 30233N1 Transfusion of Nonautologous Red Blood Cells into Peripheral Vein, Percutaneous Approach (ICD-10-PCS; principal; 2018-03-08)
DX: D64.9 Anemia, unspecified (principal); K55.20 Angiodysplasia of colon without hemorrhage; I10 Essential (primary) hypertension; B19.20 Unspecified viral hepatitis C without hepatic coma; C73 Malignant neoplasm of thyroid gland
CPT/HCPCS: 36415; 36430; 80048; 85025; 86850; 86900; 86901; 86922; P9038; P9058

== ENCOUNTER 2018-04-19 09:39 | Day surgery (SDC) | payer OTHER, MEDICARE ==
--- NOTE | 2018-04-19 10:52 | HP ---
Satellite PMH - Chief Complaint Chief Complaint: blood transfusion History of Present Illness: 82 year old female with a PMH of HTN, HLD, asthma, hepatitis C, diverticulosis, right colonic angiodysplesia, recurrent GI bleed, osteoarthritis, vertigo, thyroid cancer s/p resection, meningioma s/p resection comes in for blood transfusion. Pt is sent by PCP for satelite admission for 2 units pRBCs transfusion. Pt reports feeling well, denies any chest pain, sob, lightheadedness, weakness, n/v/d. 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: Other (Meningioma resection 4 years earlier) Cardiovascular: Yes: CAD, HTN, Hyperlipdemia Pulmonary: Yes: Asthma Gastrointestinal: Yes: Diverticulosis, GERD, GI Bleed, Hemorrhoids, Hiatal Hernia, Other (right colon angiodysplasia, colon adenomas, gastric fundic gland and hyperplastic polyps) Hepatobiliary: Yes: Cirrhosis, Hepatitis C (never treated ) Heme/Onc: Yes: Anemia Musculoskeletal: Yes: Osteoarthritis, Other (osteoporosis) Endocrine: Yes: Other (partial thyroidectomy) - Current Medications Current Medications: Home Medications Medication Instructions Recorded Simvastatin [Zocor] 20 mg PO HS #0 tablet 06/03/11 Fluticasone/Vilanterol [Breo 1 each IH DAILY 12/02/15 Ellipta 100-25 Mcg INH] Meclizine HCl [Antivert -] 12.5 mg PO TID PRN #30 tablet 05/30/17 Amlodipine Besylate 5 mg PO DAILY 10/12/17 Amitriptyline HCl [Elavil -] 10 mg PO HS tablet 10/18/17 Losartan Potassium 50 mg PO DAILY 03/08/18 Omeprazole 20 mg PO DAILY 03/08/18 Satellite Physical Exam - Physical Examination General Appearance: Well Nourished, Well Developed Lung: Clear to auscultation Heart: Regular rate & rhythm Abdomen: Soft, Normal bowel sounds Extremities: No edema, No tenderness/swelling Neurological: Intact, Alert, Oriented Satellite Impression/Plan - Impression/Plan Impression: acute on chronic anemia Operative Procedure: transfuse 2 units prbcs. monitor cbc
[2018-04-19 10:57] LABS: EOS % 3.3 % (0-4.5); LYMPH % 21.7 % (8-40); MCH 20.9 pg (25.7-33.7); MCHC 29.7 g/dl (32.0-36.0); MEAN CELL VOLUME 70.6 fl (80-96); MEAN PLT VOLUME 7.1 fl (7.5-11.1); MONO % 12.2 % (3.8-10.2); NEUT % 61.8 % (42.8-82.8); PLATELET COUNT 586 K/MM3 (134-434); RBC 3.83 M/mm3 (3.60-5.2); RDW 25.7 % (11.6-15.6); WHITE BLOOD COUNT 8.3 K/mm3 (4.0-10.0)
[2018-04-19 11:12] LABS: ANION GAP 10 MMOL/L (8-16); BLOOD UREA NITROGEN 14 mg/dL (7-18); CHLORIDE 104 mmol/L (98-107); CO2 22 mmol/L (21-32); CREATININE 0.8 mg/dL (0.55-1.3); GLUCOSE,RANDOM 107 mg/dL (74-106); POTASSIUM 3.9 mmol/L (3.5-5.1); SODIUM 136 mmol/L (136-145)
[2018-04-19 12:01] VITALS: BMI 28.3
[2018-04-19 12:27] LABS: ANISOCYTOSIS 1+; MACROCYTOSIS 1+; OVALOCYTE 1+
[2018-04-19] MEDS ORDERED: ATORVASTATIN CA 10 MG TABLET (FP) PO SCH (22:00)
[2018-04-19] MEDS ORDERED: AMITRIPTYLINE HCL 10 MG TABLET (FP) PO SCH (22:00)
[2018-04-19] MEDS ORDERED: PATIENT'S OWN MEDICATION (NON-FORMULARY) (Simvastatin [Zocor] 20 MG) PO SCH (22:00)
[2018-04-20 06:38] VITALS: PULSE 89
[2018-04-20 07:45] LABS: BASO % 1.3 % (0-2.0); EOS % 4.1 % (0-4.5); HEMOGLOBIN 9.9 GM/dL (10.7-15.3); MCH 24.6 pg (25.7-33.7); MCHC 34.1 g/dl (32.0-36.0); MEAN CELL VOLUME 72.2 fl (80-96); MEAN PLT VOLUME 6.9 fl (7.5-11.1); NEUT % 58.6 % (42.8-82.8); PLATELET COUNT 473 K/MM3 (134-434); RBC 4.01 M/mm3 (3.60-5.2); RDW 26.1 % (11.6-15.6); WHITE BLOOD COUNT 7.5 K/mm3 (4.0-10.0)
[2018-04-20] MEDS ORDERED: LOSARTAN POTASSIUM 50 MG TABLET (FP) PO SCH (10:00)
[2018-04-20] MEDS ORDERED: amLODIPine BESYLATE 5 MG TABLET (FP) PO SCH (10:00)
--- NOTE | 2018-04-20 10:28 | DS ---
Physical Examination Vital Signs: Vital Signs Temperature 98.2 F 04/20/18 01:24 Pulse Rate 89 04/20/18 06:00 Respiratory Rate 18 04/20/18 06:00 Blood Pressure 135/79 04/20/18 06:00 O2 Sat by Pulse Oximetry (%) 96 04/19/18 21:00 Constitutional: Yes: Well Nourished, No Distress, Calm Cardiovascular: Yes: WNL, Regular Rate and Rhythm Respiratory: Yes: WNL, Regular, CTA Bilaterally. No: Accessory Muscle Use, SOB , Wheezes Gastrointestinal: Yes: WNL, Normal Bowel Sounds, Soft. No: Distention, Tenderness Renal/: Yes: WNL Edema: No Neurological: Yes: WNL, Alert, Oriented Psychiatric: Yes: WNL, Alert, Oriented Labs: CBC, BMP 04/20/18 06:15 04/19/18 10:32 Discharge Summary Reason For Visit: ANEMIA Hospital Course: 82 year old female admitted as satellite for 2 units prbcs. Pt tolerated blood transfusion without issues. Post transfusion cbc improved. Pt asymptomatic. Vitals stable. Pt is medically stable for discharge home Condition: Good - Instructions Referrals: Michael Mariano MD [Staff Physician] - 1 Week Disposition: HOME - Home Medications Comprehensive Discharge Medication List: Ambulatory Orders Simvastatin [Zocor] 20 mg PO HS #0 tablet 06/03/11 Fluticasone/Vilanterol [Breo Ellipta 100-25 Mcg INH] 1 each IH DAILY 12/02/15 Meclizine HCl [Antivert -] 12.5 mg PO TID PRN #30 tablet 05/30/17 Amlodipine Besylate 5 mg PO DAILY 10/12/17 Amitriptyline HCl [Elavil -] 10 mg PO HS tablet 10/18/17 Losartan Potassium 50 mg PO DAILY 03/08/18 Omeprazole 20 mg PO DAILY 03/08/18
[2018-04-20 10:52] VITALS: BP 133/84; TEMP 97.7
== END 2018-04-20 10:50 | disposition home or self-care (01) ==
LOC: JBLOOD 09:39 → SUATTDRO 09:39 → J5S 09:41 → JBLOOD 04-20 10:50
PROVIDERS: ATTEND Nurse Practitioner Family
PROC: 30233N1 Transfusion of Nonautologous Red Blood Cells into Peripheral Vein, Percutaneous Approach (ICD-10-PCS; principal; 2018-04-19)
DX: D64.9 Anemia, unspecified (principal)
CPT/HCPCS: 36415; 36430; 36511; 80048; 85025; 86850; 86900; 86901; 86922; P9038; P9058

== ENCOUNTER 2018-09-07 14:28 | Inpatient (IN) | payer OTHER, MEDICARE ==
--- NOTE | 2018-09-07 14:43 | PDOC ---
History of Present Illness - General Chief Complaint: Syncope/Near Syncope Stated Complaint: Syncope/Near Syncope Time Seen by Provider: 09/07/18 14:32 History Source: Patient Exam Limitations: No Limitations - History of Present Illness Initial Comments: 09/07/18 16:03 82 yo F with a hx of right colonic angiodysplasia (followed by Dr. Way), asthma, hepatitis C (post treatment), HTN, HLD, anemia (hx of multiple transfusions; last one in April) and vertigo presents to the emergency department with weakness for the past 1 week with a syncopal episode without head trauma today at 1:45 pm. Per the patient, she was nauseous today and was "retching" while sitting on the komode when she had the LOC episode. Antecedent to the event, she denies the following: fever, chest pain, SOB, palpitations, and upper back pain. Per the patient, she states she awoke while sitting on the komode surrounded by family. Past History - Past Medical History Allergies/Adverse Reactions: Allergies Allergy/AdvReac Type Severity Reaction Status Date / Time Penicillins Allergy Unknown Verified 09/07/18 14:31 codeine [Codeine] Allergy Verified 09/07/18 14:31 Home Medications: Ambulatory Orders Simvastatin [Zocor] 20 mg PO HS #0 tablet 06/03/11 Fluticasone/Vilanterol [Breo Ellipta 100-25 Mcg INH] 1 each IH DAILY 12/02/15 Meclizine HCl [Antivert -] 12.5 mg PO TID PRN #30 tablet 05/30/17 Amlodipine Besylate 5 mg PO DAILY 10/12/17 Amitriptyline HCl [Elavil -] 10 mg PO HS tablet 10/18/17 Losartan Potassium 50 mg PO DAILY 03/08/18 Omeprazole 20 mg PO DAILY 03/08/18 Anemia: Yes Asthma: Yes (MILD) Cancer: No Cardiac Disorders: No CVA: No COPD: No CHF: No Dementia: No Diabetes: No GI Disorders: Yes (REFLUX) Disorders: No HTN: Yes Hypercholesterolemia: Yes Liver Disease: Yes (HEPATITIS -C) Seizures: No Thyroid Disease: Yes (removed) - Surgical History Abdominal Surgery: No Appendectomy: Yes Cardiac Surgery: No Cholecystectomy: No Lung Surgery: No Neurologic Surgery: Yes (EPIDURAL-CRANIOTOMY) Orthopedic Surgery: Yes (ARTHROSCOPY RIGHT KNEE) - Immunization History Td Vaccination: No (unknown) TDAP Vaccination: No Immunization Up to Date: No - Suicide/Smoking/Psychosocial Hx Smoking Status: No Smoking History: Never smoked Years of Tobacco Use: 0 Have you smoked in the past 12 months: No Number of Cigarettes Smoked Daily: 0 Cigars Per Day: 0 Hx Alcohol Use: No Drug/Substance Use Hx: No Substance Use Type: None Hx Substance Use Treatment: No Review of Systems - Review of Systems Able to Perform ROS?: Yes Is the patient limited Danish proficient: No Constitutional: Yes: Weakness. No: Chills, Diaphoresis, Fever HEENTM: No: Eye Pain, Recent change in vision, Nose Pain, Nose Congestion, Throat Pain, Mouth Pain Respiratory: No: Cough, Shortness of Breath, SOB with Exertion, Hemoptysis Cardiac (ROS): No: Chest Pain, Lightheadedness, Palpitations, Syncope ABD/GI: Yes: Nausea. No: Constipated, Diarrhea, Poor Appetite, Poor Fluid Intake, Rectal Bleeding, Vomiting, Tarry Stools : No: Burning, Dysuria, Hematuria, Urgency Musculoskeletal: No: Back Pain, Gout, Neck Pain Integumentary: No: Bruising, Erythema, Rash Neurological: No: Headache, Numbness, Tremors, Weakness Psychiatric: No: Anxiety, Change in Appetite Endocrine: No: Unexplained Weight Gain Hematologic/Lymphatic: No: Anemia *Physical Exam - Physical Exam General Appearance: Yes: Nourished, Appropriately Dressed, Obese. No: Apparent Distress, Intoxicated HEENT: positive: EOMI, SARAH, Normal Voice, Symmetrical, Pharynx Normal, Pale Conjunctivae, Hearing Grossly Normal. negative: Scleral Icterus (R), Scleral Icterus (L), Muffled/Hoarse voice, Pharyngeal Erythema, Tonsillar Exudate, Tonsillar Erythema, Nasal Congestion, Excessive drooling Neck: positive: Trachea midline, Supple. negative: Tender, Lymphadenopathy (R) , Lymphadenopathy (L), Tender lateral, Tender midline Respiratory/Chest: positive: Lungs Clear, Normal Breath Sounds. negative: Chest Tender, Respiratory Distress, Accessory Muscle Use, Crackles, Rales, Rhonchi, Stridor, Wheezing Cardiovascular: positive: Regular Rhythm, S1, S2, Tachycardia, Other (loud rubbing consistency sounds in the anterior chest at the lower bases bilaterally) . negative: Systolic Murmur Gastrointestinal/Abdominal: positive: Normal Bowel Sounds, Protuberent. negative: Tender, Flat Rectal Exam: positive: heme negative stool Lymphatic: negative: Adenopathy Musculoskeletal: positive: Normal Inspection. negative: CVA Tenderness, Vertebral Tenderness Extremity: positive: Normal Capillary Refill, Normal Inspection, Normal Range of Motion. negative: Tender, Coldness, Cyanosis, Swelling, Calf Tenderness Integumentary: positive: Dry, Warm, Pale. negative: Clammy, Diaphoresis, Swelling, Ecchymosis Neurologic: positive: reed man II-XII NML intact, Fully Oriented, Alert, Normal Mood/ Affect, Normal Response, Motor Strength 09/10 ED Treatment Course - LABORATORY CBC & Chemistry Diagram: 09/10/18 06:20 09/10/18 06:20 Medical Decision Making - Medical Decision Making 82 yo F with a hx of right colonic angiodysplasia (followed by Dr. Way), asthma, hepatitis C (post treatment), HTN, HLD, anemia (hx of multiple transfusions; last one in April) and vertigo presents to the emergency department with weakness for the past 1 week with a syncopal episode without head trauma today at 1:45 pm. Initial vitals: Initial Vital Signs Temp Pulse Resp BP Pulse Ox 98.3 F 124 H 28 H 120/63 100 09/07/18 14:47 09/07/18 14:47 09/07/18 14:47 09/07/18 14:47 09/07/18 14:47 Work up: syncope: ddx anemia (patient has hx of multiple transfusions with angiodysplasia in the right colon) vs metabolic abnormality vs infectious vs hypovolemic vs neurologic vs cardiac. Laboratory Tests 09/07/18 09/07/18 09/07/18 15:05 15:05 15:05 WBC 11.5 H RBC 3.25 L Hgb 6.2 L* Hct 21.2 L D MCV 65.1 L MCH 19.0 L D MCHC 29.2 L RDW 19.6 H Plt Count 501 H MPV 7.2 L Absolute Neuts (auto) 9.0 H Neutrophils % 77.6 D Lymphocytes % 13.9 D Monocytes % 7.5 Eosinophils % 0.5 D Basophils % 0.5 Nucleated RBC % 0 Hypochromia 3+ Platelet Estimate Increased Platelet Comment Few giant platelets Anisocytosis 1+ Microcytosis 1+ Macrocytosis 1+ PTT (Actin FS) 25.8 Sodium 135 L Potassium 3.7 Chloride 105 Carbon Dioxide 21 Anion Gap 9 BUN 46 H Creatinine 0.7 Creat Clearance w eGFR 79.91 Random Glucose 152 H Calcium 8.8 Magnesium 2.0 Total Bilirubin 0.2 AST 5 L ALT 14 Alkaline Phosphatase 82 Creatine Kinase 29 Troponin I < 0.02 Total Protein 6.3 L Albumin 3.2 L TSH 1.06 Free T4 0.96 Urine Color Urine Appearance Urine pH Ur Specific Thorp Urine Protein Urine Glucose (UA) Urine Ketones Urine Blood Urine Nitrite Urine Bilirubin Urine Urobilinogen Ur Leukocyte Esterase Urine WBC (Auto) Urine RBC (Auto) Urine Casts (Auto) U Pathogenic Cast Auto U Epithel Cells (Auto) U Sm Round Cell (Auto) Urine Crystals (Auto) Urine Bacteria (Auto) Stool Occult Blood Blood Type Antibody Screen Crossmatch 09/07/18 09/07/18 09/07/18 15:05 15:36 15:42 WBC RBC Hgb Hct MCV MCH MCHC RDW Plt Count MPV Absolute Neuts (auto) Neutrophils % Lymphocytes % Monocytes % Eosinophils % Basophils % Nucleated RBC % Hypochromia Platelet Estimate Platelet Comment Anisocytosis Microcytosis Macrocytosis PTT (Actin FS) Sodium Potassium Chloride Carbon Dioxide Anion Gap BUN Creatinine Creat Clearance w eGFR Random Glucose Calcium Magnesium Total Bilirubin AST ALT Alkaline Phosphatase Creatine Kinase Troponin I Total Protein Albumin TSH Free T4 Urine Color Urine Appearance Urine pH Ur Specific Thorp Urine Protein Urine Glucose (UA) Urine Ketones Urine Blood Urine Nitrite Urine Bilirubin Urine Urobilinogen Ur Leukocyte Esterase Urine WBC (Auto) Urine RBC (Auto) Urine Casts (Auto) U Pathogenic Cast Auto U Epithel Cells (Auto) U Sm Round Cell (Auto) Urine Crystals (Auto) Urine Bacteria (Auto) Stool Occult Blood Negative Blood Type O NEGATIVE Cancelled Antibody Screen Negative Cancelled Crossmatch See Detail 09/07/18 16:30 WBC RBC Hgb Hct MCV MCH MCHC RDW Plt Count MPV Absolute Neuts (auto) Neutrophils % Lymphocytes % Monocytes % Eosinophils % Basophils % Nucleated RBC % Hypochromia Platelet Estimate Platelet Comment Anisocytosis Microcytosis Macrocytosis PTT (Actin FS) Sodium Potassium Chloride Carbon Dioxide Anion Gap BUN Creatinine Creat Clearance w eGFR Random Glucose Calcium Magnesium Total Bilirubin AST ALT Alkaline Phosphatase Creatine Kinase Troponin I Total Protein Albumin TSH Free T4 Urine Color Yellow Urine Appearance Turbid Urine pH 5.5 Ur Specific Thorp 1.026 Urine Protein Negative Urine Glucose (UA) Negative Urine Ketones Trace H Urine Blood 1+ H Urine Nitrite Negative Urine Bilirubin Negative Urine Urobilinogen 1.0 Ur Leukocyte Esterase 1+ H Urine WBC (Auto) 12 Urine RBC (Auto) 5 Urine Casts (Auto) 6 U Pathogenic Cast Auto No Result Required. U Epithel Cells (Auto) 30.3 U Sm Round Cell (Auto) No Result Required. Urine Crystals (Auto) No Result Required. Urine Bacteria (Auto) 244.0 Stool Occult Blood Blood Type Antibody Screen Crossmatch UA shows UTI. wbc elevated at 11.5 with hemoglobin at 6.2 negative troponin with negative stool occult. The patient had an elevated BUN possibly consistent with a GI bleed. 2x PRBCs were ordered. Lab called and stated that they asked their pathologist to use O+ blood given they are running low on O- and they accepted that change given she is menopause. Patient to be admitted for further anemia work up. EKG shows no ST elevations with afib with rvr. Dispo: Admit *DC/Admit/Observation/Transfer Diagnosis at time of Disposition: Anemia Qualifiers: Iron deficiency anemia type: chronic blood loss - Referrals - Patient Instructions - Post Discharge Activity
[2018-09-07] MEDS ORDERED: SODIUM CHLORIDE 1,000 ML IV STA (15:02)
[2018-09-07 15:22] LABS: BASO % 0.5 % (0-2.0); EOS % 0.5 % (0-4.5); HEMATOCRIT 21.2 % (32.4-45.2); LYMPH % 13.9 % (8-40); MCHC 29.2 g/dl (32.0-36.0); MEAN PLT VOLUME 7.2 fl (7.5-11.1); MONO % 7.5 % (3.8-10.2); NEUT % 77.6 % (42.8-82.8); PLATELET COUNT 501 K/MM3 (134-434); RBC 3.25 M/mm3 (3.60-5.2); RDW 19.6 % (11.6-15.6); WHITE BLOOD COUNT 11.5 K/mm3 (4.0-10.0)
[2018-09-07 15:25] LABS: HEMOGLOBIN 6.2 GM/dL (10.7-15.3); MEAN CELL VOLUME 65.1 fl (80-96)
[2018-09-07] MEDS ORDERED: ACETAMINOPHEN 1000 MG/100 ML VIAL (NON FORMULARY) IVPB ONE (15:47)
[2018-09-07 15:58] LABS: ALBUMIN 3.2 g/dl (3.4-5.0); ALK PHOS 82 U/L (45-117); ANION GAP 9 MMOL/L (8-16); BILIRUBIN,TOTAL 0.2 mg/dL (0.2-1); BLOOD UREA NITROGEN 46 mg/dL (7-18); CALCIUM 8.8 mg/dL (8.5-10.1); CHLORIDE 105 mmol/L (98-107); CO2 21 mmol/L (21-32); CREATININE 0.7 mg/dL (0.55-1.3); GLUCOSE,RANDOM 152 mg/dL (74-106); POTASSIUM 3.7 mmol/L (3.5-5.1); SGOT/AST 5 U/L (15-37); SGPT/ALT 14 U/L (13-61); SODIUM 135 mmol/L (136-145); TOT PROT 6.3 g/dl (6.4-8.2)
[2018-09-07] MEDS ORDERED: ACETAMINOPHEN INJECTION 100 ML IVPB ONE (16:00)
--- NOTE | 2018-09-07 16:05 | PDOC ---
Documentation entered by Lazaro Lyons SCRIBE, acting as scribe for Diego Willams MD. Diego Willams MD: This documentation has been prepared by the Eloy hammer Nirvannie, SCRIBE, under my direction and personally reviewed by me in its entirety. I confirm that the documentation accurately reflects all work, treatment, procedures, and medical decision making performed by me. Attending Attestation - Resident Resident Name: Víctor Driscoll - ED Attending Attestation I have performed the following: I have examined & evaluated the patient, The case was reviewed & discussed with the resident, I agree w/resident's findings & plan - HPI HPI: 09/07/18 15:49 CC: Syncope HPI: The patient is a 82 year old female, with a significant past medical history of anemia (multiple transfusions, last in 04/2018), HTN, hyperlipidemia, vertigo, diverticulosis, and GI hemorrhage (2014), who presents to the emergency department s/p episode of syncope at approximately 1:45pm. Patient was sitting on her commode at which time she was trying to vomit and syncopized momentarily. Patient endorses a week of weakness and today notes increased lightheadedness. She denies any head/neck trauma. She denies falling to the floor. Allergies: Penicillins, codeine. Primary Care Physician: Dr. Estrada GI: Dr. Way - Physicial Exam PE: 09/07/18 15:51 Exam: Vitals: Triage Vital signs reviewed General Appearance: +Pale. no acute distress. Head: Atraumatic, normocephalic Chest Wall: Nontender Cardiac: Regular rate and rhythm. Lungs: Clear to auscultation bilateral, good air movement bilaterally, Abdomen: Soft, nondistended, normal bowel sounds, nontender to palpation Rectal: Exam deferred Extremities: Full range of motion to all extremities, no cyanosis, clubbing, or edema Skin: Warm and dry, no rashes or lesions, no petechiae Neuro: AOX3; Cranial Nerves 2-12 grossly intact, Strength intact to all extremities, Sensation intact to all extremities Psych: normal mood, normal affect - Critical Care Time Total Critical Care Time: 35 Critical Care Statement: The care of this patient involved high complexity decision making to prevent further life threatening deterioration of the patient 's condition and/or to evaluate & treat vital organ system(s) failure or risk of failure. - Medical Decision Making 09/07/18 18:37 82 years old with past medical history significant for anemia requiring multiple transfusions hypertension hyperlipidemia vertigo diverticulosis GI bleed in 2014 presents to the ED with syncopal episode while having bowel movement Patient palate slightly diaphoretic at the bedside concerning for anemia guaiac negative on rectal examination Laboratory analysis consistent with anemia Patient ordered for 2 units packed red blood cells Likely syncope secondary to symptomatic anemia GI aware We'll transfuse and admit to medicine for further management.
[2018-09-07] MEDS ORDERED: ONDANSETRON 4 MG/2 ML VIAL IVPUSH ONE (16:08)
[2018-09-07] MEDS ORDERED: ONDANSETRON 4 MG/2 ML VIAL ONE (16:09)
[2018-09-07] MEDS ORDERED: FAMOTIDINE 20 MG/50 ML IVPB 20 MG/50 ML MG IVPB ONE ×2 (16:36→17:47)
[2018-09-07] MEDS ORDERED: MAG HYDROX/AL HYDROX/SIMETH 30 ML UNIT-DOSE CUP PO ONE (16:36)
[2018-09-07 16:41] LABS: EPI CELLS 30.3 /HPF (0-5/HPF); PH,URINE 5.5 (5.0-8.0); URINE APPEARANCE TURBID; URINE BILIRUBIN NEGATIVE (NEGATIVE); URINE CASTS 6 /lpf (0-8); URINE COLOR YELLOW; URINE GLUCOSE (UA) NEGATIVE (NEGATIVE); URINE KETONE TRACE (NEGATIVE); URINE LEUK ESTERASE 1+ (NEGATIVE); URINE NITRITE NEGATIVE (NEGATIVE); URINE PROTEIN NEGATIVE (NEGATIVE); URINE WBC 12 /hpf (0-5)
[2018-09-07] MEDS ORDERED: MAG HYDROX/AL HYDROX/SIMETH 30 ML UNIT-DOSE CUP ONE (17:47)
[2018-09-07] MEDS ORDERED: ONDANSETRON 4 MG/2 ML VIAL IVPB PRN (18:16)
--- NOTE | 2018-09-07 18:41 | HP ---
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 It happened around 2 PM today when the patient was sitting on a commode. She recalls the events and states that she felt extremely nauseous and was retching. According to her daughter and that were present at bedside , she has been weak for the past year that progressively got worse over the past week. The patient added that she has been nauseous and for two days. Last blood transfusion was last year. She denies seizures, LOC, headaches, chest pain , urination, vomiting, diarrhea, melena. ER course was notable for: (1)CT abdomen (2)CXR (3)2 units of PRBC PAST MEDICAL HISTORY: as above PAST SURGICAL HISTORY: thyroidectomy, appendectomy, hysterectomy, craniotomy due to meningioma, ORIF on r side Social History: Smoking:no Alcohol:no Drugs: no Family History: Father CVA Mother: HTN Allergies Penicillins Allergy (Unknown, Verified 09/07/18 14:31) pt states i am not sure codeine [Codeine] Allergy (Verified 09/07/18 14:31) HOME MEDICATIONS: Home Medications Medication Instructions Recorded Simvastatin [Zocor] 20 mg PO HS #0 tablet 06/03/11 Fluticasone/Vilanterol [Breo 1 each IH DAILY 12/02/15 Ellipta 100-25 Mcg INH] Meclizine HCl [Antivert -] 12.5 mg PO TID PRN #30 tablet 05/30/17 Amlodipine Besylate 5 mg PO DAILY 10/12/17 Amitriptyline HCl [Elavil -] 10 mg PO HS tablet 10/18/17 Losartan Potassium 50 mg PO DAILY 03/08/18 Omeprazole 20 mg PO DAILY 03/08/18 REVIEW OF SYSTEMS CONSTITUTIONAL: generalized weakness Absent: fever, chills, diaphoresis, malaise, loss of appetite, weight change HEENT: Absent: nasal congestion, throat pain, throat swelling, CARDIOVASCULAR: Absent: chest pain, syncope, palpitations, irregular heart rate, lightheadedness , peripheral edema RESPIRATORY: Absent: cough, shortness of breath, dyspnea with exertion, orthopnea, wheezing, hemoptysis GASTROINTESTINAL: abdominal distension Absent: abdominal pain, nausea, vomiting, diarrhea, constipation, melena, hematochezia GENITOURINARY: Absent: dysuria, frequency, urgency,, hematuria, flank pain MUSCULOSKELETAL: Absent: myalgia, arthralgia, SKIN: pallor Absent: rash, itching, HEMATOLOGIC/IMMUNOLOGIC: Absent: easy bleeding, easy bruising, lymphadenopathy, frequent infections ENDOCRINE: Absent: unexplained weight gain, unexplained weight loss NEUROLOGIC: Absent: headache, focal weakness or paresthesias, dizziness, unsteady gait, seizure PSYCHIATRIC: Absent: anxiety, depression PHYSICAL EXAMINATION Vital Signs - 24 hr 09/07/18 09/07/18 14:47 17:46 Temperature 98.3 F 98.2 F Pulse Rate 124 H Pulse Rate [ 126 H Right Radial] Respiratory 28 H Rate Blood Pressure 120/63 Blood Pressure 117/90 [Left Arm] O2 Sat by Pulse 100 96 Oximetry (%) GENERAL: Awake, alert, and fully oriented, in no acute distress. HEAD: Normal with no signs of trauma. EYES: Extraocular movements intact, sclera anicteric, conjunctiva pale. EARS, NOSE, THROAT: Oropharynx clear without exudates. Moist mucous membranes. NECK: Normal range of motion, supple without lymphadenopathy. LUNGS: Breath sounds equal, clear to auscultation bilaterally. No wheezes, and no crackles. No accessory muscle use. HEART: Regular rate and rhythm, normal S1 and S2 without murmur, rub or gallop. ABDOMEN: Obese, soft, nontender, distended, normoactive bowel sounds, no guarding, no rebound, no masses. MUSCULOSKELETAL: Normal range of motion at all joints. No bony deformities or tenderness. N UPPER EXTREMITIES: No peripheral edema. LOWER EXTREMITIES: 2+ pulses, no peripheral edema. NEUROLOGICAL: Non focal. Normal speech. PSYCHIATRIC: Cooperative. Good eye contact. Appropriate mood and affect. SKIN: Warm, dry, no rashes or lesions noted, pale. Laboratory Results - last 24 hr 09/07/18 09/07/18 09/07/18 15:05 15:05 15:05 WBC 11.5 H RBC 3.25 L Hgb 6.2 L* Hct 21.2 L D MCV 65.1 L MCH 19.0 L D MCHC 29.2 L RDW 19.6 H Plt Count 501 H MPV 7.2 L Absolute Neuts (auto) 9.0 H Neutrophils % 77.6 D Lymphocytes % 13.9 D Monocytes % 7.5 Eosinophils % 0.5 D Basophils % 0.5 Nucleated RBC % 0 PTT (Actin FS) 25.8 Sodium 135 L Potassium 3.7 Chloride 105 Carbon Dioxide 21 Anion Gap 9 BUN 46 H Creatinine 0.7 Creat Clearance w eGFR 79.91 Random Glucose 152 H Calcium 8.8 Magnesium 2.0 Total Bilirubin 0.2 AST 5 L ALT 14 Alkaline Phosphatase 82 Creatine Kinase 29 Troponin I < 0.02 Total Protein 6.3 L Albumin 3.2 L TSH 1.06 Free T4 0.96 Urine Color Urine Appearance Urine pH Ur Specific Dr[place] Urine Protein Urine Glucose (UA) Urine Ketones Urine Blood Urine Nitrite Urine Bilirubin Urine Urobilinogen Ur Leukocyte Esterase Urine WBC (Auto) Urine Casts (Auto) U Pathogenic Cast Auto U Epithel Cells (Auto) U Sm Round Cell (Auto) Urine Crystals (Auto) Urine Bacteria (Auto) Stool Occult Blood Blood Type Antibody Screen Crossmatch 09/07/18 09/07/18 09/07/18 15:05 15:36 15:42 WBC RBC Hgb Hct MCV MCH MCHC RDW Plt Count MPV Absolute Neuts (auto) Neutrophils % Lymphocytes % Monocytes % Eosinophils % Basophils % Nucleated RBC % PTT (Actin FS) Sodium Potassium Chloride Carbon Dioxide Anion Gap BUN Creatinine Creat Clearance w eGFR Random Glucose Calcium Magnesium Total Bilirubin AST ALT Alkaline Phosphatase Creatine Kinase Troponin I Total Protein Albumin TSH Free T4 Urine Color Urine Appearance Urine pH Ur Specific [place] Urine Protein Urine Glucose (UA) Urine Ketones Urine Blood Urine Nitrite Urine Bilirubin Urine Urobilinogen Ur Leukocyte Esterase Urine WBC (Auto) Urine Casts (Auto) U Pathogenic Cast Auto U Epithel Cells (Auto) U Sm Round Cell (Auto) Urine Crystals (Auto) Urine Bacteria (Auto) Stool Occult Blood Negative Blood Type O NEGATIVE Cancelled Antibody Screen Negative Cancelled Crossmatch See Detail 09/07/18 16:30 WBC RBC Hgb Hct MCV MCH MCHC RDW Plt Count MPV Absolute Neuts (auto) Neutrophils % Lymphocytes % Monocytes % Eosinophils % Basophils % Nucleated RBC % PTT (Actin FS) Sodium Potassium Chloride Carbon Dioxide Anion Gap BUN Creatinine Creat Clearance w eGFR Random Glucose Calcium Magnesium Total Bilirubin AST ALT Alkaline Phosphatase Creatine Kinase Troponin I Total Protein Albumin TSH Free T4 Urine Color Yellow Urine Appearance Turbid Urine pH 5.5 Ur Specific [place] 1.026 Urine Protein Negative Urine Glucose (UA) Negative Urine Ketones Trace H Urine Blood 1+ H Urine Nitrite Negative Urine Bilirubin Negative Urine Urobilinogen 1.0 Ur Leukocyte Esterase 1+ H Urine WBC (Auto) 12 Urine Casts (Auto) 6 U Pathogenic Cast Auto No Result Required. U Epithel Cells (Auto) 30.3 U Sm Round Cell (Auto) No Result Required. Urine Crystals (Auto) No Result Required. 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 Symptomatic anemia: -the patient anemia is likely caused by acute blood loss, may be AVM malformation, BUN elevated, first FOBT neg, no reported blood in stool -GI consulted -will transfuse 2 u of PRBC -will monitor on telemetry -Protonix 40 mg IV BID for possible bleed S/p syncope: -likely caused by anemia, vasovagal, less likely neurologic -will f/u ECHO, carotid US -cardiac monitoring -fall risk precautions h/o of hiatal hernia: -looks increased in size on CXR -will consult GI -Zofran for nausea HTN: cont home meds HLD: -cont home meds DVT PPX: scds F/E/N: no/na 135/NPO Dispo: telemetry Problem List - Problem (1) Anemia Code(s): D64.9 - ANEMIA, UNSPECIFIED (2) Acute blood loss anemia Code(s): D62 - ACUTE POSTHEMORRHAGIC ANEMIA (3) Angiodysplasia of colon Code(s): K55.20 - ANGIODYSPLASIA OF COLON WITHOUT HEMORRHAGE (4) Asthma Code(s): J45.909 - UNSPECIFIED ASTHMA, UNCOMPLICATED Qualifiers: Asthma severity: mild Asthma persistence: intermittent Asthma complication type: uncomplicated Qualified Code(s): J45.20 - Mild intermittent asthma, uncomplicated (5) Diverticula of colon Code(s): K57.30 - DVRTCLOS OF LG INT W/O PERFORATION OR ABSCESS W/O BLEEDING (6) HLD (hyperlipidemia) Code(s): E78.5 - HYPERLIPIDEMIA, UNSPECIFIED (7) HTN (hypertension) Code(s): I10 - ESSENTIAL (PRIMARY) HYPERTENSION Qualifiers: Hypertension type: essential hypertension Qualified Code(s): I10 - Essential (primary) hypertension (8) Hepatitis C Code(s): B19.20 - UNSPECIFIED VIRAL HEPATITIS C WITHOUT HEPATIC COMA Visit type - Emergency Visit Emergency Visit: Yes ED Registration Date: 09/07/18 Care time: The patient presented to the Emergency Department on the above date and was hospitalized for further evaluation of their emergent condition. - New Patient This patient is new to me today: Yes Date on this admission: 09/07/18 - Critical Care Critical Care patient: No
[2018-09-07] MEDS: PANTOPRAZOLE SODIUM 40 MG VIAL IVPUSH SCH ×2 (19:07→23:13)
[2018-09-07] MEDS ORDERED: PANTOPRAZOLE SODIUM 40 MG VIAL ONE (19:13)
--- NOTE | 2018-09-07 19:37 | PN ---
Teaching Attending Note Name of Resident: Susana Maurer ATTENDING PHYSICIAN STATEMENT I saw and evaluated the patient. I reviewed the resident's note and discussed the case with the resident. I agree with the resident's findings and plan as documented. CC: my blood count is low HPI: Ms Daniel is a very pleasant 82 year old female who comes in for symptomatic anemia. She has a history of anemia requiring transfusions in the past. She states this morning she was feeling weak and tired. She went to the bathroom and while sitting there she began to feel nauseous. She began to dry heave, and then she experienced presyncope or a syncopal episode (patient says she does not believe she passed out, family at bedside says she passed out). EMS was called and she was brought in and found to be anemic. Currently she says she still feels tired. 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),Hepatitis C ( declined treatment ) Heme/Onc Cancer (thyroid cancer resected) Endocrine Other (partial thyroidectomy) Past Surgical History Past Surgical History Appendectomy (colon adenomas removed, diverticulosis and right colon AVM seen), Colonoscopy (for menongioma),Craniotomy ( gastric polyps removed),Hysterectomy,Upper Endoscopy Home Medications Medication Instructions Recorded Simvastatin [Zocor] 20 mg PO HS #0 tablet 06/03/11 Fluticasone/Vilanterol [Breo 1 each IH DAILY 12/02/15 Ellipta 100-25 Mcg INH] Meclizine HCl [Antivert -] 12.5 mg PO TID PRN #30 tablet 05/30/17 Amlodipine Besylate 5 mg PO DAILY 10/12/17 Amitriptyline HCl [Elavil -] 10 mg PO HS tablet 10/18/17 Losartan Potassium 50 mg PO DAILY 03/08/18 Omeprazole 20 mg PO DAILY 03/08/18 SHx: denies tobacco, alcohol, [employer] FHx: non-contributory ROS: full review of systems obtained, as per HPI and otherwise negative OBJECTIVE: Gen: nad, pale HEENT: perrla, eomi Pulm: ctab w/o w/r/r CV: tachycardic w/o m/r/g Abd: +bs, s/nt/nd Ext: no c/c/e ASSESSMENT AND PLAN: Problem List - Problems (1) Acute blood loss anemia Assessment/Plan: -suspect UGIB -admit to telemetry since tachycardic -transfuse 2 units pRBCs -consult GI -protonix 40mg IV bid Code(s): D62 - ACUTE POSTHEMORRHAGIC ANEMIA (2) Syncope Assessment/Plan: -combination of anemia and vasovagal response -obtain ECHO and carotid ultrasound -transfuse -monitor on telemetry Code(s): R55 - SYNCOPE AND COLLAPSE (3) Tachycardia Assessment/Plan: -secondary to anemia -transfuse -admit to telemetry Code(s): R00.0 - TACHYCARDIA, UNSPECIFIED (4) Uremia Assessment/Plan: -most likely secondary to GI bleed -creatinine normal -treatment as above Code(s): N19 - UNSPECIFIED KIDNEY FAILURE (5) HLD (hyperlipidemia) Assessment/Plan: -continue lipitor Code(s): E78.5 - HYPERLIPIDEMIA, UNSPECIFIED (6) HTN (hypertension) Assessment/Plan: -controlled Code(s): I10 - ESSENTIAL (PRIMARY) HYPERTENSION Qualifiers: Hypertension type: essential hypertension Qualified Code(s): I10 - Essential (primary) hypertension
[2018-09-07 19:47] LABS: ANISOCYTOSIS 1+; MACROCYTOSIS 1+; PLATELET ESTIMATE INCREASED
[2018-09-07 19:55] LABS: URINE RBC 5 /hpf (0-4)
[2018-09-07 21:08] VITALS: BMI 29.9
[2018-09-07] MEDS: ATORVASTATIN CA 10 MG TABLET (FP) PO SCH (22:01)
[2018-09-07] MEDS ORDERED: MELATONIN 5 MG TABLETS PO ONE (22:15)
[2018-09-08 05:28] LABS: BASO % 0.6 % (0-2.0); EOS % 1.3 % (0-4.5); HEMATOCRIT 24.3 % (32.4-45.2); HEMOGLOBIN 7.6 GM/dL (10.7-15.3); LYMPH % 24.3 % (8-40); MCHC 31.4 g/dl (32.0-36.0); MEAN PLT VOLUME 7.3 fl (7.5-11.1); MONO % 10.7 % (3.8-10.2); NEUT % 63.1 % (42.8-82.8); PLATELET COUNT 318 K/MM3 (134-434); RBC 3.47 M/mm3 (3.60-5.2); RDW 20.9 % (11.6-15.6)
[2018-09-08 06:13] LABS: ALK PHOS 72 U/L (45-117); ANION GAP 6 MMOL/L (8-16); BILIRUBIN,TOTAL 0.4 mg/dL (0.2-1); BLOOD UREA NITROGEN 32 mg/dL (7-18); CALCIUM 7.8 mg/dL (8.5-10.1); CHLORIDE 110 mmol/L (98-107); CO2 24 mmol/L (21-32); CREATININE 0.7 mg/dL (0.55-1.3); GLUCOSE,RANDOM 94 mg/dL (74-106); MAGNESIUM 1.9 mg/dL (1.8-2.4); PHOSPHOROUS 2.6 mg/dL (2.5-4.9); POTASSIUM 3.7 mmol/L (3.5-5.1); SGOT/AST 9 U/L (15-37); SGPT/ALT 12 U/L (13-61); SODIUM 141 mmol/L (136-145); TOT PROT 5.6 g/dl (6.4-8.2)
[2018-09-08] MEDS: PANTOPRAZOLE SODIUM 40 MG VIAL IVPUSH SCH ×2 (09:49→21:53)
--- NOTE | 2018-09-08 09:52 | ECHO ---
Name: MALINDA SMITH Exam:Adult Echocardiogram Study Date: 09/08/2018 07:45 AM Age: 82 yrs Reason For Study: SYNCOPE Height: 63 in Weight: 152 lb BSA: 1.7 m2 MMode/2D Measurements & Calculations IVSd: 1.1 cm Ao root diam: 2.8 cm LVIDd: 4.0 cm LA dimension: 1.5 cm LVIDs: 2.4 cm LVPWd: 0.72 cm EDV(Teich): 70.9 ml LVOT diam: 2.0 cm ESV(Teich): 21.2 ml Doppler Measurements & Calculations MV E max vlad: 102.0 cm/sec Ao V2 max: 139.5 cm/sec MV A max vlad: 126.6 cm/sec Ao max P.8 mmHg MV E/A: 0.81 AI P1/2t: 747.2 msec MV dec time: 0.10 sec SHARDA(V,D): 2.4 cm2 AI max vlad: 385.9 cm/sec LV V1 max P.9 mmHg AI max P.6 mmHg LV V1 max: 111.1 cm/sec AI dec slope: 151.3 cm/sec2 MR max vlad: 565.4 cm/sec TR max vlad: 289.7 cm/sec MR max P.9 mmHg TR max P.9 mmHg PA V2 max: 88.2 cm/sec Med Peak E' Vlad: 6.9 cm/sec PA max P.1 mmHg Med E/e': 14.9 Lat Peak E' Vlad: 8.9 cm/sec Lat E/e': 11.4 PI Vmax: 201.6 cm/sec Procedure The study was technically difficult with many images being suboptimal in quality. Left Ventricle Left ventricular systolic function is grossly normal. Ejection Fraction = 50-55%. The transmitral spe ctral Doppler flow pattern is suggestive of impaired LV relaxation. Right Ventricle The right ventricle is normal in size and function. Atria Normal left and right atrial size and function. Mitral Valve The mitral valve is grossly normal. There is no mitral valve stenosis. There is mild mitral regurgita tion. Tricuspid Valve The tricuspid valve is normal in structure and function. There is mild tricuspid regurgitation. Right ventricular systolic pressure is elevated at 30-40mmHg. Aortic Valve The aortic valve is trileaflet. No hemodynamically significant valvular aortic stenosis. Mild aortic regurgitation. Pulmonic Valve The pulmonic valve is not well seen, but is grossly normal. There is no pulmonic valvular stenosis. M ild pulmonic valvular regurgitation. Great Vessels The aortic root is normal size. Pericardium/Pleura There is no pericardial effusion. Interpretation Summary The study was technically difficult with many images being suboptimal in quality. Left ventricular systolic function is grossly normal. Ejection Fraction = 50-55%. The transmitral spectral Doppler flow pattern is suggestive of impaired LV relaxation. There is mild mitral regurgitation. There is mild tricuspid regurgitation. Right ventricular systolic pressure is elevated at 30-40mmHg. Mild aortic regurgitation. Mild pulmonic valvular regurgitation. There is no pericardial effusion. MD Sawant *Yolanda 09/08/2018 09:51 AM
--- NOTE | 2018-09-08 10:54 | EKG ---
Test Reason : Blood Pressure : / mmHG Vent. Rate : 126 BPM Atrial Rate : 126 BPM P-R Int : 132 ms QRS Dur : 068 ms QT Int : 324 ms P-R-T Axes : 028 004 099 degrees QTc Int : 469 ms POOR DATA QUALITY, INTERPRETATION MAY BE ADVERSELY AFFECTED SINUS TACHYCARDIA NONSPECIFIC ST AND T WAVE ABNORMALITY ABNORMAL ECG Confirmed by ISAAC MAYNARD MD ([id number]) on 09/08/2018 10:54:18 AM Referred By: Confirmed By:ISAAC MAYNARD MD
[2018-09-08] MEDS ORDERED: DEXTROSE 5%-NORMAL SALINE 1,000 ML IV SCH (13:45)
--- NOTE | 2018-09-08 15:07 | CON.GI ---
Consult Consult Specialty:: Gastroenterology Referred by:: Dr Mariano Reason for Consultation:: Syncope due to anemia - History of Present Illness Chief Complaint: Lightheadedness with N/V and a syncopal spell History of Present Illness: 82F has been experiencing lightheadednss recently. Yesterday she developed N/V leading to a syncopal spell. Her Hb was 6.2. She denies any hematemesis or melena. She has been taking Advil qhs which she relies upon for sleep. She denies abdominal pain. Today she has no nausea and is very hungry. She was found to have a bleeding right colon angiodysplasia in 2014 when a proximal tx colon adenoma was removed. She last had an EGD and colonoscopy on 12/03/15 when an NSAID erosion was found within her large hiatal hernia. Colonoscopy led to the removal of a cecal adenoma, ascending colon serrated polyps and sigmoid hyperplastic polyps but the angiodysplasias were no longer seen. Mild diverticulosis was noted. 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), Hepatitis C (declined treatment ) Heme/Onc: Yes: Cancer (thyroid cancer resected) Musculoskeletal: Yes: Osteoarthritis, Other (osteoporosis) Endocrine: Yes: Other (partial thyroidectomy) - Past Surgical History Past Surgical History: Yes: Appendectomy, Colonoscopy (colon adenomas removed, diverticulosis and right colon AVM seen), Craniotomy (for menongioma), Hysterectomy, Upper Endoscopy (gastric polyps removed) - Alcohol/Substance Use Hx Alcohol Use: No History of Substance Use: reports: None - Smoking History Smoking history: Never smoked Have you smoked in the past 12 months: No Aproximately how many cigarettes per day: 0 - Social History Usual Living Arrangement: With Spouse ADL: Independent History of Recent Travel: No Home Medications - Allergies Allergies/Adverse Reactions: Allergies Allergy/AdvReac Type Severity Reaction Status Date / Time Penicillins Allergy Unknown Verified 09/07/18 14:31 codeine [Codeine] Allergy Verified 09/07/18 14:31 - Home Medications Home Medications: Ambulatory Orders Simvastatin [Zocor] 20 mg PO HS #0 tablet 06/03/11 Fluticasone/Vilanterol [Breo Ellipta 100-25 Mcg INH] 1 each IH DAILY 12/02/15 Meclizine HCl [Antivert -] 12.5 mg PO TID PRN #30 tablet 05/30/17 Amlodipine Besylate 5 mg PO DAILY 10/12/17 Amitriptyline HCl [Elavil -] 10 mg PO HS tablet 10/18/17 Losartan Potassium 50 mg PO DAILY 03/08/18 Omeprazole 20 mg PO DAILY 03/08/18 Family Disease History - Family Disease History Family Disease History: Other: Grandparent (cervcal ca), Father ( 94 with cva), Mother (HTN, 90) Other Family History: GM had cervical cancer Review of Systems - Review of Systems Constitutional: reports: Other (lightheadedness and syncope) Eyes: reports: No Symptoms HENT: reports: No Symptoms Neck: reports: No Symptoms Cardiovascular: reports: No Symptoms Respiratory: reports: Exercise Intolerance, SOB on Exertion Gastrointestinal: reports: Bloating, Nausea, Vomiting Physical Exam-GI Vital Signs: Vital Signs Temperature 98 F 09/08/18 09:00 Pulse Rate 86 09/08/18 09:00 Respiratory Rate 20 09/08/18 09:00 Blood Pressure 148/88 09/08/18 09:00 O2 Sat by Pulse Oximetry (%) 98 09/08/18 09:00 CBC,CMP WBC 11.0 K/mm3 (4.0-10.0) H 09/08/18 05:00 RBC 3.47 M/mm3 (3.60-5.2) L 09/08/18 05:00 Hgb 7.6 GM/dL (10.7-15.3) L 09/08/18 05:00 Hct 24.3 % (32.4-45.2) L 09/08/18 05:00 MCV 70.0 fl (80-96) L 09/08/18 05:00 MCH 22.0 pg (25.7-33.7) L D 09/08/18 05:00 MCHC 31.4 g/dl (32.0-36.0) L 09/08/18 05:00 RDW 20.9 % (11.6-15.6) H 09/08/18 05:00 Plt Count 318 K/MM3 (134-434) D 09/08/18 05:00 MPV 7.3 fl (7.5-11.1) L 09/08/18 05:00 Absolute Neuts (auto) 6.9 K/mm3 (1.5-8.0) 09/08/18 05:00 Neutrophils % 63.1 % (42.8-82.8) 09/08/18 05:00 Lymphocytes % 24.3 % (8-40) D 09/08/18 05:00 Monocytes % 10.7 % (3.8-10.2) H 09/08/18 05:00 Eosinophils % 1.3 % (0-4.5) D 09/08/18 05:00 Basophils % 0.6 % (0-2.0) 09/08/18 05:00 Nucleated RBC % 0 % (0-0) 09/08/18 05:00 Hypochromia 3+ 09/07/18 15:05 Platelet Estimate Increased 09/07/18 15:05 Platelet Comment Few giant platelets 09/07/18 15:05 Anisocytosis 1+ 09/07/18 15:05 Microcytosis 1+ 09/07/18 15:05 Macrocytosis 1+ 09/07/18 15:05 Sodium 141 mmol/L (136-145) 09/08/18 05:00 Potassium 3.7 mmol/L (3.5-5.1) 09/08/18 05:00 Chloride 110 mmol/L (98-107) H 09/08/18 05:00 Carbon Dioxide 24 mmol/L (21-32) 09/08/18 05:00 Anion Gap 6 MMOL/L (8-16) L 09/08/18 05:00 BUN 32 mg/dL (7-18) H 09/08/18 05:00 Creatinine 0.7 mg/dL (0.55-1.3) 09/08/18 05:00 Creat Clearance w eGFR 79.91 (>60) 09/08/18 05:00 Random Glucose 94 mg/dL (74-106) 09/08/18 05:00 Calcium 7.8 mg/dL (8.5-10.1) L 09/08/18 05:00 Phosphorus 2.6 mg/dL (2.5-4.9) 09/08/18 05:00 Magnesium 1.9 mg/dL (1.8-2.4) 09/08/18 05:00 Total Bilirubin 0.4 mg/dL (0.2-1) 09/08/18 05:00 AST 9 U/L (15-37) L 09/08/18 05:00 ALT 12 U/L (13-61) L 09/08/18 05:00 Alkaline Phosphatase 72 U/L (45-117) 09/08/18 05:00 Creatine Kinase 29 U/L (26-192) 09/07/18 15:05 Troponin I < 0.02 ng/ml (0.00-0.05) 09/07/18 15:05 Total Protein 5.6 g/dl (6.4-8.2) L 09/08/18 05:00 Albumin 3.0 g/dl (3.4-5.0) L 09/08/18 05:00 TSH 1.06 uIU/ml (0.358-3.74) 09/07/18 15:05 Free T4 0.96 ng/dl (0.76-1.46) 09/07/18 15:05 Current Medications Generic Name Dose Route Start Last Admin Trade Name Freq PRN Reason Stop Dose Admin Atorvastatin Calcium 10 mg 09/07/18 22:00 09/07/18 22:01 Lipitor - PO 10 mg HS SARAI Administration Dextrose/Sodium Chloride 1,000 mls @ 83 mls/hr 09/08/18 13:45 09/08/18 14:22 D5-Ns - IV 83 mls/hr ASDIR SARAI Administration Non-Formulary Medication 1 each 09/08/18 10:00 Fluticasone/Vilanterol [Breo Ellipta 100-25 Mcg Inh] IH DAILY SARAI Ondansetron HCl 4 mg 09/07/18 18:16 Zofran Injection IVPB Q6H PRN NAUSEA Pantoprazole Sodium 40 mg 09/07/18 18:00 09/08/18 09:49 Protonix Iv IVPUSH 40 mg BID SARAI Administration Constitutional: Yes: Anxious Eyes: Yes: Conjunctiva Clear HENT: Yes: Atraumatic Neck: Yes: Trachea Midline (healed incision) Cardiovascular: Yes: Regular Rate and Rhythm Respiratory: Yes: CTA Bilaterally Gastrointestinal Inspection: Yes: Scars (vertically alined suprapubic incision) ...Auscultate: Yes: Normoactive Bowel Sounds ...Palpate: Yes: Soft, Other (nontender) ...Rectal Exam: Yes: Guaiac Positive (brown guaiac positive stool) Edema: No Neurological: Yes: Alert, Oriented Labs: CBC, BMP 09/08/18 05:00 09/08/18 05:00 Problem List - Problems (1) Occult blood in stools Assessment/Plan: I suspect that Lela's anemia reflects an NSAID induced ulcer or erosive gastritis vs indolent bleeding form small bowel and colon vascular ectasias. I have proposed both an EGD/enteroscopy and a colonoscopy and informed Lela of the potential for such adverse effects as perforation and hemorrhage. She has granted consent only for EGD with an enteroscopy which I have scheduled for Tuesday.He diet can be advanced as tolerated . Continue the PPI. Code(s): R19.5 - OTHER FECAL ABNORMALITIES (2) Anemia Code(s): D64.9 - ANEMIA, UNSPECIFIED Qualifiers: Iron deficiency anemia type: chronic blood loss (3) History of thyroid cancer Code(s): Z85.850 - PERSONAL HISTORY OF MALIGNANT NEOPLASM OF THYROID (4) Acute blood loss anemia Code(s): D62 - ACUTE POSTHEMORRHAGIC ANEMIA (5) Adenoma of large intestine Code(s): D12.6 - BENIGN NEOPLASM OF COLON, UNSPECIFIED (6) Angiodysplasia of colon Code(s): K55.20 - ANGIODYSPLASIA OF COLON WITHOUT HEMORRHAGE (7) Asthma Code(s): J45.909 - UNSPECIFIED ASTHMA, UNCOMPLICATED Qualifiers: Asthma severity: mild Asthma persistence: intermittent Asthma complication type: uncomplicated Qualified Code(s): J45.20 - Mild intermittent asthma, uncomplicated (8) Diverticula of colon Code(s): K57.30 - DVRTCLOS OF LG INT W/O PERFORATION OR ABSCESS W/O BLEEDING (9) Gastric polyp Code(s): K31.7 - POLYP OF STOMACH AND DUODENUM (10) Hepatitis C Code(s): B19.20 - UNSPECIFIED VIRAL HEPATITIS C WITHOUT HEPATIC COMA (11) Hiatal hernia Code(s): K44.9 - DIAPHRAGMATIC HERNIA WITHOUT OBSTRUCTION OR GANGRENE (12) History of GI bleed Code(s): Z87.19 - PERSONAL HISTORY OF OTHER DISEASES OF THE DIGESTIVE SYSTEM (13) History of hepatitis C Code(s): Z86.19 - PERSONAL HISTORY OF OTHER INFECTIOUS AND PARASITIC DISEASES (14) S/P resection of meningioma Code(s): Z98.890 - OTHER SPECIFIED POSTPROCEDURAL STATES; Z86.018 - PERSONAL HISTORY OF OTHER BENIGN NEOPLASM Assessment/Plan Impression: Anemia due to NSAID induced ulcer or erosive gastritis vs indolent bleeding from small bowel and colon vascular ectasias. Personal h/o colon angiodysplasia, diverticulosis and colon adenomas Personal h/o large HH with an NSAID ulcer Plan: I have proposed both an EGD/enteroscopy and a colonoscopy and informed Lela of the potential for such adverse effects as perforation and hemorrhage. She has granted consent only for EGD with an enteroscopy which I have scheduled for Tuesday. Diet can be advanced as tolerated . Continue the PPI. Dr Cardenas will be covering this weekend.
--- NOTE | 2018-09-08 17:08 | PN ---
Physical Exam: SUBJECTIVE: Patient seen and examined. She is feeling much better today, but hungry. No overnight events. OBJECTIVE: Vital Signs Period Temp Pulse Resp BP Sys/[place] Pulse Ox Last 24 Hr 97.7 F-98.6 F 80-126 20-20 117-148/73-90 96-98 GENERAL: The patient is awake, AAOx3, in no acute distress, lying comfortably in bed. HEAD: Normal with no signs of trauma. EYES: Extraocular movements intact, sclera anicteric, conjunctiva clear. ENT: Moist mucous membranes. NECK: Trachea midline, supple. LUNGS: Breath sounds equal, clear to auscultation bilaterally, no wheezes, no crackles. HEART: Regular rate and rhythm, S1, S2 without murmur, rub or gallop. ABDOMEN: Obese, soft, nontender, nondistended, normoactive bowel sounds, no guarding, no rebound. EXTREMITIES: 2+ pulses, warm, no edema. NEUROLOGICAL: Non focal. Normal speech, gait not observed. PSYCH: Normal mood, normal affect. SKIN: Warm, dry, no rashes, scar on neck. Laboratory Results - last 24 hr 09/07/18 09/07/18 09/07/18 15:05 15:05 15:05 WBC RBC Hgb Hct MCV MCH MCHC RDW Plt Count MPV Absolute Neuts (auto) Neutrophils % Lymphocytes % Monocytes % Eosinophils % Basophils % Nucleated RBC % Hypochromia 3+ Platelet Estimate Increased Platelet Comment Few giant platelets Anisocytosis 1+ Microcytosis 1+ Macrocytosis 1+ Sodium Potassium Chloride Carbon Dioxide Anion Gap BUN Creatinine Creat Clearance w eGFR Random Glucose Calcium Phosphorus Magnesium Total Bilirubin AST ALT Alkaline Phosphatase Total Protein Albumin TSH 1.06 Free T4 0.96 Urine Color Urine Appearance Urine pH Ur Specific [place] Urine Protein Urine Glucose (UA) Urine Ketones Urine Blood Urine Nitrite Urine Bilirubin Urine Urobilinogen Ur Leukocyte Esterase Urine WBC (Auto) Urine RBC (Auto) Urine Casts (Auto) U Pathogenic Cast Auto U Epithel Cells (Auto) U Sm Round Cell (Auto) Urine Crystals (Auto) Urine Bacteria (Auto) Blood Type O NEGATIVE Antibody Screen Negative Crossmatch See Detail 09/07/18 09/08/18 09/08/18 16:30 05:00 05:00 WBC 11.0 H RBC 3.47 L Hgb 7.6 L Hct 24.3 L MCV 70.0 L MCH 22.0 L D MCHC 31.4 L RDW 20.9 H Plt Count 318 D MPV 7.3 L Absolute Neuts (auto) 6.9 Neutrophils % 63.1 Lymphocytes % 24.3 D Monocytes % 10.7 H Eosinophils % 1.3 D Basophils % 0.6 Nucleated RBC % 0 Hypochromia Platelet Estimate Platelet Comment Anisocytosis Microcytosis Macrocytosis Sodium 141 Potassium 3.7 Chloride 110 H Carbon Dioxide 24 Anion Gap 6 L BUN 32 H Creatinine 0.7 Creat Clearance w eGFR 79.91 Random Glucose 94 Calcium 7.8 L Phosphorus 2.6 Magnesium 1.9 Total Bilirubin 0.4 AST 9 L ALT 12 L Alkaline Phosphatase 72 Total Protein 5.6 L Albumin 3.0 L TSH Free T4 Urine Color Yellow Urine Appearance Turbid Urine pH 5.5 Ur Specific [place] 1.026 Urine Protein Negative Urine Glucose (UA) Negative Urine Ketones Trace H Urine Blood 1+ H Urine Nitrite Negative Urine Bilirubin Negative Urine Urobilinogen 1.0 Ur Leukocyte Esterase 1+ H Urine WBC (Auto) 12 Urine RBC (Auto) 5 Urine Casts (Auto) 6 U Pathogenic Cast Auto No Result Required. U Epithel Cells (Auto) 30.3 U Sm Round Cell (Auto) No Result Required. Urine Crystals (Auto) No Result Required. Urine Bacteria (Auto) 244.0 Blood Type Antibody Screen Crossmatch Active Medications Generic Name Dose Route Start Last Admin Trade Name Freq PRN Reason Stop Dose Admin Atorvastatin Calcium 10 mg 09/07/18 22:00 09/07/18 22:01 Lipitor - PO 10 mg HS SARAI Administration Non-Formulary Medication 1 each 09/08/18 10:00 Fluticasone/Vilanterol [Breo Ellipta 100-25 Mcg Inh] IH DAILY SARAI Ondansetron HCl 4 mg 09/07/18 18:16 Zofran Injection IVPB Q6H PRN NAUSEA Pantoprazole Sodium 40 mg 09/07/18 18:00 09/08/18 09:49 Protonix Iv IVPUSH 40 mg BID SARAI Administration ASSESSMENT/PLAN: The patient is a 82 year old female with a PMH of AVM malformation in right colon, multiple transfusions for anemia, GERD, hiatal hernia, diverticulosis, vertigo, HTN, asthma, hep C that presented to the hospital s/p syncope, admitted for symptomatic anemia. Symptomatic anemia: -the patient anemia is likely caused by acute blood loss, possible be due to h/ o of AVM, upper GI bleed, BUN elevated on admission, decreased today first FOBT neg, no reported blood in stool -GI consulted, will have EGD on Tuesday -transfused 2 u of PRBC with improvement of H/H -iron studies ordered -continue Protonix 40 mg IV BID S/p syncope: -most likely caused by anemia, vasovagal, less likely neurologic -ECHO- nl LV function,EF 55%, impaired LV relaxation, mild MR, TR, mild aortic regurg. -carotid US- no stenosis -fall risk precautions h/o of hiatal hernia: -Zofran for nausea -CT abdomen done in ED , reviewed HTN: cont home meds HLD: -cont home meds DVT PPX: scds F/E/N: no/no electrolite abnormalities/Liquid diet Dispo: -transferred to med surg Problem List - Problems (1) Anemia Code(s): D64.9 - ANEMIA, UNSPECIFIED Qualifiers: Iron deficiency anemia type: chronic blood loss (2) Acute blood loss anemia Code(s): D62 - ACUTE POSTHEMORRHAGIC ANEMIA (3) Angiodysplasia of colon Code(s): K55.20 - ANGIODYSPLASIA OF COLON WITHOUT HEMORRHAGE (4) Asthma Code(s): J45.909 - UNSPECIFIED ASTHMA, UNCOMPLICATED Qualifiers: Asthma severity: mild Asthma persistence: intermittent Asthma complication type: uncomplicated Qualified Code(s): J45.20 - Mild intermittent asthma, uncomplicated (5) Diverticula of colon Code(s): K57.30 - DVRTCLOS OF LG INT W/O PERFORATION OR ABSCESS W/O BLEEDING (6) HLD (hyperlipidemia) Code(s): E78.5 - HYPERLIPIDEMIA, UNSPECIFIED (7) HTN (hypertension) Code(s): I10 - ESSENTIAL (PRIMARY) HYPERTENSION Qualifiers: Hypertension type: essential hypertension Qualified Code(s): I10 - Essential (primary) hypertension (8) Hepatitis C Code(s): B19.20 - UNSPECIFIED VIRAL HEPATITIS C WITHOUT HEPATIC COMA Visit type - Emergency Visit Emergency Visit: Yes ED Registration Date: 09/07/18 Care time: The patient presented to the Emergency Department on the above date and was hospitalized for further evaluation of their emergent condition. - New Patient This patient is new to me today: No - Critical Care Critical Care patient: No - Discharge Referral Referred to [facility] Med P.C.: No
--- NOTE | 2018-09-08 17:43 | PN ---
Teaching Attending Note Name of Resident: Susana Maurer ATTENDING PHYSICIAN STATEMENT I saw and evaluated the patient. I reviewed the resident's note and discussed the case with the resident. I agree with the resident's findings and plan as documented. SUBJECTIVE: Ms Daniel feels much better today after transfusion and is without complaint. Denies cp, sob, n/v. OBJECTIVE: Last Vital Signs Temp Pulse Resp BP Pulse Ox 36.8 C 80 20 145/89 98 09/08/18 14:10 09/08/18 14:10 09/08/18 14:10 09/08/18 14:10 09/08/18 09:00 Gen: nad Pulm: ctab w/o w/r/r CV: rrr w/o m/r/g Abd: +bs, s/nt/nd Ext: no c/c/e CBC, BMP 09/08/18 05:00 09/08/18 05:00 ASSESSMENT AND PLAN: (1) Acute blood loss anemia Assessment/Plan: -improved with transfusion -appreciate GI assistance, note reviewed -continue IV protonix -advance diet -plan for EGD on Tuesday Code(s): D62 - ACUTE POSTHEMORRHAGIC ANEMIA (2) Syncope Assessment/Plan: -secondary to anemia -w/u otherwise normal Code(s): R55 - SYNCOPE AND COLLAPSE (3) Tachycardia Assessment/Plan: -resolved -safe to transfer to med/surg Code(s): R00.0 - TACHYCARDIA, UNSPECIFIED (4) Uremia Assessment/Plan: -improving with treatment Code(s): N19 - UNSPECIFIED KIDNEY FAILURE (5) HLD (hyperlipidemia) Assessment/Plan: -continue lipitor Code(s): E78.5 - HYPERLIPIDEMIA, UNSPECIFIED (6) HTN (hypertension) Assessment/Plan: -controlled Code(s): I10 - ESSENTIAL (PRIMARY) HYPERTENSION Qualifiers: Hypertension type: essential hypertension Qualified Code(s): I10 - Essential (primary) hypertension Problem List - Problems (1) Acute blood loss anemia Code(s): D62 - ACUTE POSTHEMORRHAGIC ANEMIA (2) Syncope Code(s): R55 - SYNCOPE AND COLLAPSE (3) Tachycardia Code(s): R00.0 - TACHYCARDIA, UNSPECIFIED (4) Uremia Code(s): N19 - UNSPECIFIED KIDNEY FAILURE (5) HLD (hyperlipidemia) Code(s): E78.5 - HYPERLIPIDEMIA, UNSPECIFIED (6) HTN (hypertension) Code(s): I10 - ESSENTIAL (PRIMARY) HYPERTENSION Qualifiers: Hypertension type: essential hypertension Qualified Code(s): I10 - Essential (primary) hypertension
[2018-09-08] MEDS: ATORVASTATIN CA 10 MG TABLET (FP) PO SCH (21:53)
[2018-09-09 07:28] LABS: BASO % 1.1 % (0-2.0); HEMATOCRIT 25.4 % (32.4-45.2); HEMOGLOBIN 7.9 GM/dL (10.7-15.3); LYMPH % 23.1 % (8-40); MCH 21.9 pg (25.7-33.7); MCHC 31.2 g/dl (32.0-36.0); MEAN CELL VOLUME 70.4 fl (80-96); MEAN PLT VOLUME 7.5 fl (7.5-11.1); MONO % 9.2 % (3.8-10.2); NEUT % 62.6 % (42.8-82.8); PLATELET COUNT 350 K/MM3 (134-434); RBC 3.61 M/mm3 (3.60-5.2); RDW 20.2 % (11.6-15.6); WHITE BLOOD COUNT 8.7 K/mm3 (4.0-10.0)
[2018-09-09 07:58] LABS: ALBUMIN 3.2 g/dl (3.4-5.0); ALK PHOS 75 U/L (45-117); ANION GAP 5 MMOL/L (8-16); BILIRUBIN,TOTAL 0.4 mg/dL (0.2-1); BLOOD UREA NITROGEN 14 mg/dL (7-18); CALCIUM 8.5 mg/dL (8.5-10.1); CHLORIDE 106 mmol/L (98-107); CO2 27 mmol/L (21-32); CREATININE 0.6 mg/dL (0.55-1.3); GLUCOSE,RANDOM 87 mg/dL (74-106); POTASSIUM 4.1 mmol/L (3.5-5.1); SGOT/AST 9 U/L (15-37); SGPT/ALT 13 U/L (13-61); SODIUM 137 mmol/L (136-145); TOT PROT 6.2 g/dl (6.4-8.2)
[2018-09-09] MEDS: amLODIPine BESYLATE 5 MG TABLET (FP) PO SCH (09:28)
[2018-09-09] MEDS: LOSARTAN POTASSIUM 50 MG TABLET (FP) PO SCH (09:28)
[2018-09-09] MEDS: PANTOPRAZOLE SODIUM 40 MG VIAL IVPUSH SCH ×2 (09:28→21:31)
--- NOTE | 2018-09-09 14:18 | PN ---
Progress Note, Physician Chief Complaint: Ms Daniel is without complaint. Denies cp, sob, n/v. - Current Medication List Current Medications: Active Medications Amlodipine Besylate (Norvasc -) 5 mg PO DAILY [facility] Last Admin: 09/09/18 09:28 Dose: 5 mg Atorvastatin Calcium (Lipitor -) 10 mg PO HS [facility] Last Admin: 09/08/18 21:53 Dose: 10 mg Losartan Potassium (Cozaar -) 50 mg PO DAILY [facility] Last Admin: 09/09/18 09:28 Dose: 50 mg Non-Formulary Medication (Fluticasone/Vilanterol [Breo Ellipta 100-25 Mcg Inh]) 1 each IH DAILY [facility] Ondansetron HCl (Zofran Injection) 4 mg IVPB Q6H PRN PRN Reason: NAUSEA Pantoprazole Sodium (Protonix Iv) 40 mg IVPUSH BID [facility] Last Admin: 09/09/18 09:28 Dose: 40 mg - Objective Vital Signs: Vital Signs Temperature 36.3 C L 09/09/18 10:00 Pulse Rate 77 09/09/18 10:00 Respiratory Rate 18 09/09/18 10:00 Blood Pressure 127/75 09/09/18 10:00 O2 Sat by Pulse Oximetry (%) 98 09/09/18 09:00 Constitutional: Yes: Well Nourished, No Distress, Calm Cardiovascular: Yes: Regular Rate and Rhythm. No: Gallop, Murmur, Rub Respiratory: Yes: Regular, CTA Bilaterally. No: Rales, Rhonchi, Wheezes Gastrointestinal: Yes: Normal Bowel Sounds, Soft. No: Distention, Tenderness Extremities: Yes: WNL Edema: No Labs: CBC, BMP 09/09/18 05:30 09/09/18 05:30 Problem List - Problems (1) Acute blood loss anemia Code(s): D62 - ACUTE POSTHEMORRHAGIC ANEMIA (2) Syncope Code(s): R55 - SYNCOPE AND COLLAPSE (3) Tachycardia Code(s): R00.0 - TACHYCARDIA, UNSPECIFIED (4) Uremia Code(s): N19 - UNSPECIFIED KIDNEY FAILURE (5) HLD (hyperlipidemia) Code(s): E78.5 - HYPERLIPIDEMIA, UNSPECIFIED (6) HTN (hypertension) Code(s): I10 - ESSENTIAL (PRIMARY) HYPERTENSION Qualifiers: Hypertension type: essential hypertension Qualified Code(s): I10 - Essential (primary) hypertension Assessment/Plan (1) Acute blood loss anemia Assessment/Plan: -improved with transfusion -appreciate GI assistance, note reviewed -continue IV protonix -advance diet to full liquid today -plan for EGD on Tuesday Code(s): D62 - ACUTE POSTHEMORRHAGIC ANEMIA (2) Syncope Assessment/Plan: -secondary to anemia -w/u otherwise normal Code(s): R55 - SYNCOPE AND COLLAPSE (3) Tachycardia Assessment/Plan: -resolved -safe to transfer to med/surg Code(s): R00.0 - TACHYCARDIA, UNSPECIFIED (4) Uremia Assessment/Plan: -resolved Code(s): N19 - UNSPECIFIED KIDNEY FAILURE (5) HLD (hyperlipidemia) Assessment/Plan: -continue lipitor Code(s): E78.5 - HYPERLIPIDEMIA, UNSPECIFIED (6) HTN (hypertension) Assessment/Plan: -controlled Code(s): I10 - ESSENTIAL (PRIMARY) HYPERTENSION Qualifiers: Hypertension type: essential hypertension Qualified Code(s): I10 - Essential (primary) hypertension
[2018-09-09] MEDS ORDERED: ONDANSETRON 4 MG/2 ML VIAL IVPB PRN (19:26)
[2018-09-09] MEDS: ATORVASTATIN CA 10 MG TABLET (FP) PO SCH (21:32)
[2018-09-10] MEDS ORDERED: PT OWN MED DRAWER 7, Y5N ONE (06:15)
[2018-09-10 07:39] LABS: BASO % 0.5 % (0-2.0); EOS % 4.1 % (0-4.5); HEMOGLOBIN 7.8 GM/dL (10.7-15.3); LYMPH % 20.1 % (8-40); MCH 22.6 pg (25.7-33.7); MCHC 32.4 g/dl (32.0-36.0); MEAN CELL VOLUME 69.9 fl (80-96); MEAN PLT VOLUME 7.6 fl (7.5-11.1); MONO % 10.4 % (3.8-10.2); NEUT % 64.9 % (42.8-82.8); PLATELET COUNT 332 K/MM3 (134-434); RBC 3.43 M/mm3 (3.60-5.2); RDW 21.2 % (11.6-15.6); WHITE BLOOD COUNT 7.4 K/mm3 (4.0-10.0)
[2018-09-10 08:00] LABS: ANION GAP 8 MMOL/L (8-16); BLOOD UREA NITROGEN 11 mg/dL (7-18); CALCIUM 8.6 mg/dL (8.5-10.1); CHLORIDE 105 mmol/L (98-107); CO2 27 mmol/L (21-32); CREATININE 0.6 mg/dL (0.55-1.3); GLUCOSE,RANDOM 106 mg/dL (74-106); MAGNESIUM 2.3 mg/dL (1.8-2.4); PHOSPHOROUS 3.8 mg/dL (2.5-4.9); POTASSIUM 3.8 mmol/L (3.5-5.1); SODIUM 140 mmol/L (136-145)
[2018-09-10 08:08] LABS: SERUM IRON SATURATION 4 % (15-55); TOTAL IRON BINDING CAPACITY 367 ug/dL (250-450); UIBC 351 ug/dL (118-369)
[2018-09-10] MEDS: LOSARTAN POTASSIUM 50 MG TABLET (FP) PO SCH (11:17)
[2018-09-10] MEDS: PANTOPRAZOLE SODIUM 40 MG VIAL IVPUSH SCH ×2 (11:17→21:27)
[2018-09-10] MEDS: amLODIPine BESYLATE 5 MG TABLET (FP) PO SCH (11:17)
--- NOTE | 2018-09-10 15:16 | PN ---
Progress Note, Physician Chief Complaint: Ms Daniel is without complaint. Denies cp, sob, n/v. - Current Medication List Current Medications: Active Medications Amlodipine Besylate (Norvasc -) 5 mg PO DAILY [facility] Last Admin: 09/10/18 11:17 Dose: 5 mg Atorvastatin Calcium (Lipitor -) 10 mg PO HS [facility] Last Admin: 09/09/18 21:32 Dose: 10 mg Losartan Potassium (Cozaar -) 50 mg PO DAILY [facility] Last Admin: 09/10/18 11:17 Dose: 50 mg Non-Formulary Medication (Fluticasone/Vilanterol [Breo Ellipta 100-25 Mcg Inh]) 1 each IH DAILY [facility] Ondansetron HCl (Zofran Injection) 4 mg IVPB Q6H PRN PRN Reason: NAUSEA Pantoprazole Sodium (Protonix Iv) 40 mg IVPUSH BID [facility] Last Admin: 09/10/18 11:17 Dose: 40 mg - Objective Vital Signs: Vital Signs Temperature 36.9 C 09/10/18 13:25 Pulse Rate 92 H 09/10/18 13:25 Respiratory Rate 20 09/10/18 13:25 Blood Pressure 113/73 09/10/18 13:25 O2 Sat by Pulse Oximetry (%) 98 09/10/18 09:00 Constitutional: Yes: Well Nourished, No Distress, Calm Cardiovascular: Yes: Regular Rate and Rhythm. No: Gallop, Murmur, Rub Respiratory: Yes: Regular, CTA Bilaterally. No: Rales, Rhonchi, Wheezes Gastrointestinal: Yes: Normal Bowel Sounds, Soft. No: Distention, Tenderness Extremities: Yes: WNL Edema: No Labs: CBC, BMP 09/10/18 06:20 09/10/18 06:20 Problem List - Problems (1) Acute blood loss anemia Code(s): D62 - ACUTE POSTHEMORRHAGIC ANEMIA (2) Syncope Code(s): R55 - SYNCOPE AND COLLAPSE (3) Tachycardia Code(s): R00.0 - TACHYCARDIA, UNSPECIFIED (4) Uremia Code(s): N19 - UNSPECIFIED KIDNEY FAILURE (5) HLD (hyperlipidemia) Code(s): E78.5 - HYPERLIPIDEMIA, UNSPECIFIED (6) HTN (hypertension) Code(s): I10 - ESSENTIAL (PRIMARY) HYPERTENSION Qualifiers: Hypertension type: essential hypertension Qualified Code(s): I10 - Essential (primary) hypertension Assessment/Plan (1) Acute blood loss anemia Assessment/Plan: -stable -continue IV protonix bid -continue full liquid diet -EGD tomorrow Code(s): D62 - ACUTE POSTHEMORRHAGIC ANEMIA (2) Syncope Assessment/Plan: -secondary to anemia -w/u otherwise normal -has not recurred Code(s): R55 - SYNCOPE AND COLLAPSE (3) Tachycardia Assessment/Plan: -resolved Code(s): R00.0 - TACHYCARDIA, UNSPECIFIED (4) Uremia Assessment/Plan: -resolved Code(s): N19 - UNSPECIFIED KIDNEY FAILURE (5) HLD (hyperlipidemia) Assessment/Plan: -continue lipitor Code(s): E78.5 - HYPERLIPIDEMIA, UNSPECIFIED (6) HTN (hypertension) Assessment/Plan: -controlled Code(s): I10 - ESSENTIAL (PRIMARY) HYPERTENSION Qualifiers: Hypertension type: essential hypertension Qualified Code(s): I10 - Essential (primary) hypertension
[2018-09-10] MEDS: ATORVASTATIN CA 10 MG TABLET (FP) PO SCH (21:27)
[2018-09-11 07:52] LABS: BASO % 0.7 % (0-2.0); EOS % 6.7 % (0-4.5); HEMATOCRIT 27.5 % (32.4-45.2); HEMOGLOBIN 8.5 GM/dL (10.7-15.3); LYMPH % 25.1 % (8-40); MCH 22.1 pg (25.7-33.7); MCHC 30.9 g/dl (32.0-36.0); MEAN CELL VOLUME 71.5 fl (80-96); MEAN PLT VOLUME 7.9 fl (7.5-11.1); NEUT % 56.5 % (42.8-82.8); PLATELET COUNT 366 K/MM3 (134-434); RBC 3.84 M/mm3 (3.60-5.2); RDW 21.8 % (11.6-15.6); WHITE BLOOD COUNT 7.2 K/mm3 (4.0-10.0)
[2018-09-11] MEDS: amLODIPine BESYLATE 5 MG TABLET (FP) PO SCH (09:01)
[2018-09-11] MEDS: PANTOPRAZOLE SODIUM 40 MG VIAL IVPUSH SCH (09:01)
[2018-09-11] MEDS: LOSARTAN POTASSIUM 50 MG TABLET (FP) PO SCH (09:01)
--- NOTE | 2018-09-11 11:01 | PN ---
Progress Note (short form) - Note Progress Note: GI Procedure NOte: Please see scanned enteroscopy report. A large hiatal hernia was again found but there were no foci of bleeding found down to the level of the proximal jejunum. NO GI objections to discharge after a dose of Venofer ( ferritin 7.5) Problem List - Problems (1) Occult blood in stools Code(s): R19.5 - OTHER FECAL ABNORMALITIES (2) Anemia Code(s): D64.9 - ANEMIA, UNSPECIFIED Qualifiers: Iron deficiency anemia type: chronic blood loss (3) History of thyroid cancer Code(s): Z85.850 - PERSONAL HISTORY OF MALIGNANT NEOPLASM OF THYROID (4) Acute blood loss anemia Code(s): D62 - ACUTE POSTHEMORRHAGIC ANEMIA (5) Adenoma of large intestine Code(s): D12.6 - BENIGN NEOPLASM OF COLON, UNSPECIFIED (6) Angiodysplasia of colon Code(s): K55.20 - ANGIODYSPLASIA OF COLON WITHOUT HEMORRHAGE (7) Asthma Code(s): J45.909 - UNSPECIFIED ASTHMA, UNCOMPLICATED Qualifiers: Asthma severity: mild Asthma persistence: intermittent Asthma complication type: uncomplicated Qualified Code(s): J45.20 - Mild intermittent asthma, uncomplicated (8) Diverticula of colon Code(s): K57.30 - DVRTCLOS OF LG INT W/O PERFORATION OR ABSCESS W/O BLEEDING (9) Gastric polyp Code(s): K31.7 - POLYP OF STOMACH AND DUODENUM (10) Hepatitis C Code(s): B19.20 - UNSPECIFIED VIRAL HEPATITIS C WITHOUT HEPATIC COMA (11) Hiatal hernia Code(s): K44.9 - DIAPHRAGMATIC HERNIA WITHOUT OBSTRUCTION OR GANGRENE (12) History of GI bleed Code(s): Z87.19 - PERSONAL HISTORY OF OTHER DISEASES OF THE DIGESTIVE SYSTEM (13) History of hepatitis C Code(s): Z86.19 - PERSONAL HISTORY OF OTHER INFECTIOUS AND PARASITIC DISEASES (14) S/P resection of meningioma Code(s): Z98.890 - OTHER SPECIFIED POSTPROCEDURAL STATES; Z86.018 - PERSONAL HISTORY OF OTHER BENIGN NEOPLASM
[2018-09-11 11:31] VITALS: TEMP 97.6
[2018-09-11] MEDS ORDERED: IRON SUCROSE INJECTION 300 MG in SODIUM CHLORIDE 235 ML IVPB ONE (12:00)
--- NOTE | 2018-09-11 12:48 | DS ---
Physical Examination Vital Signs: Vital Signs Temperature 36.4 C 09/11/18 11:30 Pulse Rate 77 09/11/18 11:30 Respiratory Rate 20 09/11/18 11:30 Blood Pressure 116/79 09/11/18 11:30 O2 Sat by Pulse Oximetry (%) 100 09/11/18 11:30 Constitutional: Yes: Well Nourished, No Distress, Calm Cardiovascular: Yes: Regular Rate and Rhythm, Murmur, Rub. No: Gallop Respiratory: Yes: Regular, CTA Bilaterally. No: Rales, Rhonchi, Wheezes Gastrointestinal: Yes: Normal Bowel Sounds, Soft. No: Distention, Tenderness Extremities: Yes: WNL Edema: No Labs: CBC, BMP 09/11/18 06:48 09/10/18 06:20 Discharge Summary Reason For Visit: ANEMIA Current Active Problems History of thyroid cancer (Acute) Occult blood in stools (Acute) Syncope (Acute) Tachycardia (Acute) Uremia (Acute) Anemia (Chronic) Hospital Course: (1) Acute blood loss anemia Code(s): D62 - ACUTE POSTHEMORRHAGIC ANEMIA (2) Syncope Code(s): R55 - SYNCOPE AND COLLAPSE (3) Tachycardia Code(s): R00.0 - TACHYCARDIA, UNSPECIFIED (4) Uremia Code(s): N19 - UNSPECIFIED KIDNEY FAILURE (5) HLD (hyperlipidemia) Code(s): E78.5 - HYPERLIPIDEMIA, UNSPECIFIED (6) HTN (hypertension) Code(s): I10 - ESSENTIAL (PRIMARY) HYPERTENSION Qualifiers: Hypertension type: essential hypertension Qualified Code(s): I10 - Essential (primary) hypertension Mrs Daniel is a very pleasant 82 year old female who came in with ABLA and uremia suspicious for an UGIB. She was originally admitted to telemetry as she was tachycardic because of the anemia. She was transfused and stated on IV protonix. She improved significantly and her uremia resolved. She was seen by GI and underwent EGD. No source of bleeding was found. She will be continued on protonix on discharge. She was given venofer prior to discharge. She is safe for discharge home. 33 minutes spent in preparation of this discharge Condition: Good - Instructions Diet, Activity, Other Instructions: resume previous diet and activity Referrals: Michael Mariano MD [Primary Care Provider] - Adam Way MD [Staff Physician] - Disposition: HOME - Home Medications Comprehensive Discharge Medication List: Ambulatory Orders RX: Simvastatin [Zocor] 20 mg PO HS #0 tablet 06/03/11 RX: Fluticasone/Vilanterol [Breo Ellipta 100-25 Mcg INH] 1 each IH DAILY RX: Meclizine HCl [Antivert -] 12.5 mg PO TID PRN #30 tablet 05/30/17 RX: Amlodipine Besylate 5 mg PO DAILY 10/12/17 RX: Amitriptyline HCl [Elavil -] 10 mg PO HS tablet 10/18/17 RX: Losartan Potassium 50 mg PO DAILY 03/08/18 RX: Pantoprazole Sodium [Protonix -] 40 mg PO DAILY #60 tablet.ec 09/11/18
[2018-09-11] MEDS ORDERED: PT OWN MED DRAWER 7, Y5N ONE (14:26)
[2018-09-11 14:30] VITALS: BP 110/62; PULSE 82
[2018-09-11 15:28] LABS: ANISOCYTOSIS 1+; MACROCYTOSIS 1+; OVALOCYTE 1+
[2018-09-12] MEDS ORDERED: PANTOPRAZOLE 40 MG TABLET (FP) PO SCH (10:00)
== END 2018-09-11 16:49 | disposition home or self-care (01) | DRG 812 ==
LOC: JER 14:28 → JERBED 17:07 → J4W 20:23 → J7W 09-09 19:31
PROVIDERS: ADMIT Internal Medicine; ATTEND Internal Medicine
PROC: 30233N1 Transfusion of Nonautologous Red Blood Cells into Peripheral Vein, Percutaneous Approach (ICD-10-PCS; principal; 2018-09-07)
DX: D62 Acute posthemorrhagic anemia (principal); N39.0 Urinary tract infection, site not specified; I10 Essential (primary) hypertension; E78.5 Hyperlipidemia, unspecified; B19.20 Unspecified viral hepatitis C without hepatic coma; K21.9 Gastro-esophageal reflux disease without esophagitis; K57.30 Diverticulosis of large intestine without perforation or abscess without bleeding; K55.20 Angiodysplasia of colon without hemorrhage; N19 Unspecified kidney failure; Z85.850 Personal history of malignant neoplasm of thyroid
CPT/HCPCS: 36415; 36430; 36511; 71045-TC-FY; 74176-TC; 80048; 80053; 81003; 82272; 82550; 82728; 83540; 83550; 83735; 84100; 84439; 84443; 84484; 85025; 85044; 85730; 86850; 86900; 86901; 86922; 87086; 93005; 93010; 93306-TC; 93880-TC; 97116-GP; 97161-GP; 99285-25; J0131; J1756; J7030; P9038; P9058

== ENCOUNTER 2019-06-03 18:15 | Inpatient (IN) | payer OTHER, MEDICARE ==
--- NOTE | 2019-06-03 19:40 | PDOC ---
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 per the patient, she was getting out of her bed to use the restroom. She tripped on the floor and landed on her gluteal region without head trauma and LOC. The patient currently has pain in her hips and has difficulty ambulating. She currently lives in her home with her , also elderly, acting as her sole homecare provider. Since the fall, she has been unable to ambulate due to pain. Denies the following: Fever, chills, SOB, chest pain, palpitations, abdominal pain, nausea, vomiting, dysuria, hematuria, and leg swelling. Allergies: PCN and codeine Past History - Past Medical History Allergies/Adverse Reactions: Allergies Allergy/AdvReac Type Severity Reaction Status Date / Time Penicillins Allergy Unknown Verified 09/07/18 14:31 codeine [Codeine] Allergy Verified 09/07/18 14:31 Home Medications: Ambulatory Orders Meclizine HCl [Antivert -] 12.5 mg PO TID PRN #30 tablet 05/30/17 Amlodipine Besylate 5 mg PO DAILY 10/12/17 Amitriptyline HCl [Elavil -] 10 mg PO HS tablet 10/18/17 Losartan Potassium 50 mg PO DAILY 03/08/18 Pantoprazole Sodium [Protonix -] 40 mg PO DAILY #60 tablet.ec 09/11/18 Potassium Chloride [Klor-Con M10] 10 meq PO DAILY 06/04/19 Azithromycin 500 mg PO DAILY #2 tablet 06/07/19 Cefpodoxime Proxetil [Vantin -] 200 mg PO Q12H 4 Days #8 tablet 06/07/19 Ipratropium 0.02% Nebulizer [Atrovent 0.02% Nebulizer -] 1 amp NEB TID PRN #1 box 06/07/19 Nebulizer Accessories [Adult Aerosol Mask] 1 each MC DAILY #1 each 06/07/19 Nebulizer Accessories [Air Filter] 1 each MC DAILY #1 each 06/07/19 Nebulizer Accessories [Filter Pad] 1 each MC DAILY #1 each 06/07/19 Nebulizer Accessories [Filters Replacement] 1 each MC DAILY #1 each 06/07/19 Nebulizer Accessories [Mask Set with Y-Piece] 1 each MC DAILY #1 each 06/07/19 Nebulizer Accessories [Nose Clip] 1 each MC DAILY #1 each 06/07/19 Nebulizer [Altera Nebulizer] 1 each MC DAILY #1 each 06/07/19 predniSONE [Deltasone -] 40 mg PO DAILY 4 Days #4 tablet 06/07/19 Anemia: Yes Asthma: Yes (MILD) Cancer: No Cardiac Disorders: No CVA: No COPD: No CHF: No Dementia: No Diabetes: No GI Disorders: Yes (REFLUX) Disorders: No HTN: Yes Hypercholesterolemia: Yes Liver Disease: Yes (HEPATITIS -C) Seizures: No Thyroid Disease: Yes (removed) - Surgical History Abdominal Surgery: No Appendectomy: Yes Cardiac Surgery: No Cholecystectomy: No Lung Surgery: No Neurologic Surgery: Yes (EPIDURAL-CRANIOTOMY) Orthopedic Surgery: Yes (ARTHROSCOPY RIGHT KNEE) - Immunization History Td Vaccination: No (unknown) TDAP Vaccination: No Immunization Up to Date: No - Psycho Social/Smoking Cessation Hx Smoking Status: No Smoking History: Former smoker Years of Tobacco Use: 0 Have you smoked in the past 12 months: No Number of Cigarettes Smoked Daily: 0 Cigars Per Day: 0 Information on smoking cessation initiated: No Hx Alcohol Use: No Drug/Substance Use Hx: No Substance Use Type: None Hx Substance Use Treatment: No Review of Systems - Review of Systems Able to Perform ROS?: Yes Is the patient limited Belarusian proficient: No Constitutional: No: Chills, Diaphoresis, Fever, Weakness HEENTM: No: Eye Pain, Ear Pain, Nose Pain, Throat Pain, Mouth Pain Respiratory: No: Cough, Shortness of Breath, Hemoptysis Cardiac (ROS): No: Chest Pain, Lightheadedness, Palpitations, Chest Tightness ABD/GI: No: Constipated, Diarrhea, Nausea, Rectal Bleeding, Vomiting, Tarry Stools : No: Burning, Dysuria, Hematuria Musculoskeletal: Yes: Joint Pain (hip and knee right side). No: Back Pain, Neck Pain Integumentary: No: Bruising, Erythema, Rash Neurological: No: Headache, Numbness, Tingling Psychiatric: No: Change in Appetite Endocrine: No: Unexplained Weight Loss Hematologic/Lymphatic: No: Anemia *Physical Exam - Vital Signs Last Vital Signs Temp Pulse Resp BP Pulse Ox 98.3 F 107 H 18 144/84 97 06/03/19 18:17 06/03/19 18:17 06/03/19 18:17 06/03/19 18:17 06/03/19 18:17 - Physical Exam General Appearance: Yes: Nourished, Appropriately Dressed. No: Apparent Distress, Intoxicated HEENT: positive: EOMI, SARAH, Normal Voice, Symmetrical, Pharynx Normal, Hearing Grossly Normal. negative: Pale Conjunctivae, Scleral Icterus (R), Scleral Icterus (L), Muffled/Hoarse voice, Pharyngeal Erythema, Tonsillar Exudate, Tonsillar Erythema, Nasal Congestion, Rhinorrhea, Sinus Tenderness, Excessive drooling Neck: positive: Trachea midline, Supple. negative: Tender, Lymphadenopathy (R) , Lymphadenopathy (L), Tender lateral, Tender midline Respiratory/Chest: positive: Lungs Clear, Normal Breath Sounds. negative: Chest Tender, Respiratory Distress, Accessory Muscle Use, Crackles, Rales, Rhonchi, Stridor, Wheezing Cardiovascular: positive: Regular Rhythm, Regular Rate, S1, S2. negative: Systolic Murmur Gastrointestinal/Abdominal: positive: Normal Bowel Sounds, Flat, Soft. negative : Tender, Distended, Guarding, Rebound Lymphatic: negative: Adenopathy Musculoskeletal: positive: Normal Inspection. negative: CVA Tenderness, Vertebral Tenderness Extremity: positive: Normal Capillary Refill, Tender (distal portion of the femur anterior and anterior knee), Pelvis Stable. 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 Initial vitals: Initial Vital Signs Temp Pulse Resp BP Pulse Ox 98.3 F 107 H 18 144/84 97 06/03/19 18:17 06/03/19 18:17 06/03/19 18:17 06/03/19 18:17 06/03/19 18:17 WorK UP: Laboratory Tests 06/03/19 06/03/19 06/03/19 20:25 20:25 22:47 WBC 8.0 RBC 5.01 Hgb 15.2 Hct 46.2 H D MCV 92.1 MCH 30.4 D MCHC 33.0 RDW 13.2 D Plt Count 309 MPV 8.9 D Absolute Neuts (auto) 6.0 Neutrophils % 74.5 D Lymphocytes % 13.1 D Monocytes % 11.8 H Eosinophils % 0.2 D Basophils % 0.4 Nucleated RBC % 0 Sodium 134 L Potassium 4.0 Chloride 99 Carbon Dioxide 25 Anion Gap 10 BUN 11.2 Creatinine 0.7 Est GFR (CKD-EPI)AfAm 92.21 Est GFR (CKD-EPI)NonAf 79.56 Random Glucose 111 H Calcium 9.7 Total Bilirubin 0.5 AST 30 ALT 40 Alkaline Phosphatase 105 Total Protein 8.1 Albumin 4.0 Urine Color Yellow Urine Appearance Clear Urine pH 6.0 Ur Specific [place] 1.020 Urine Protein 1+ H Urine Glucose (UA) Negative Urine Ketones Trace Urine Blood Trace-lysed Urine Nitrite Negative Urine Bilirubin Negative Urine Urobilinogen 2.0 H Ur Leukocyte Esterase Negative Urine WBC (Auto) 0.6 Urine RBC (Auto) 2.3 Urine Casts (Auto) 0.73 U Epithel Cells (Auto) 2.0 Urine Bacteria (Auto) 2.9 xrays negative for acute fracture I attempted to ambulate the patient with assistance on 2 occasions, both of which were to no avail after administration of analgesics. Patient's labs within normal limits. Patient will require admission for placement for rehabilitation. EKG: NSR without ST elevations or depressions. TW flattening in lead III. Ventricular rate is 93 bpm. Dispo: Admit Discharge - Discharge Information Problems reviewed: Yes Clinical Impression/Diagnosis: Inability to walk - Follow up/Referral - Patient Discharge Instructions - Post Discharge Activity
[2019-06-03] MEDS ORDERED: ACETAMINOPHEN 1000 MG/100 ML VIAL (NON FORMULARY) IVPB ONE ×2 (19:46→19:49)
[2019-06-03] MEDS ORDERED: FOLIC ACID INJECTION - 1 MG, THIAMINE HCL 100 MG, MULTIVIT INJECTION ADULT 10 ML in SOD... IVPB ONE (19:49)
[2019-06-03] MEDS ORDERED: ACETAMINOPHEN INJECTION 100 ML IVPB ONE (20:05)
--- NOTE | 2019-06-03 20:36 | PDOC ---
Attending Attestation - Resident Resident Name: YamilaVíctor - ED Attending Attestation I have performed the following: I have examined & evaluated the patient, The case was reviewed & discussed with the resident, I agree w/resident's findings & plan - HPI HPI: 06/03/19 23:34 Pt slipped out of her hospital bed at home, and slid to the floor; landed on her right side and she has pain at this time, states that she was unable to get up and her was unable to lift her. She came via EMS. Pt has right leg pain and knee pain. - Physicial Exam PE: 06/03/19 23:35 Heart lungs normal abd NT ND no flank pain afebrile HEENT normal ext: no edema Right knee swollen slightly on the lateral aspect. FROM at hips right knee pain good pulses on her legs. - Medical Decision Making 06/09/19 06:58 xrays negative for acute fracture I attempted to ambulate the patient with assistance on 2 occasions, both of which were to no avail after administration of analgesics. Patient's labs within normal limits. Patient will require admission for placement for rehabilitation. EKG: NSR without ST elevations or depressions. TW flattening in lead III. Ventricular rate is 93 bpm. Dispo: Admit, as she cannot walk
[2019-06-03 22:24] LABS: BASO % 0.4 % (0-2.0); EOS % 0.2 % (0-4.5); HEMATOCRIT 46.2 % (32.4-45.2); HEMOGLOBIN 15.2 GM/dL (10.7-15.3); LYMPH % 13.1 % (8-40); MCH 30.4 pg (25.7-33.7); MEAN CELL VOLUME 92.1 fl (80-96); MEAN PLT VOLUME 8.9 fl (7.5-11.1); MONO % 11.8 % (3.8-10.2); NEUT % 74.5 % (42.8-82.8); PLATELET COUNT 309 K/MM3 (134-434); RBC 5.01 M/mm3 (3.60-5.2); RDW 13.2 % (11.6-15.6)
[2019-06-03 23:20] LABS: BILIRUBIN,TOTAL 0.5 mg/dL (0.2-1); BLOOD UREA NITROGEN 11.2 mg/dL (7-18); CALCIUM 9.7 mg/dL (8.5-10.1); CREATININE 0.7 mg/dL (0.55-1.3); TOT PROT 8.1 g/dl (6.4-8.2)
[2019-06-03 23:26] LABS: URINE APPEARANCE Clear; URINE BILIRUBIN Negative (NEGATIVE); URINE COLOR Yellow; URINE GLUCOSE (UA) Negative (NEGATIVE); URINE KETONE Trace (NEGATIVE); URINE LEUK ESTERASE Negative (NEGATIVE); URINE NITRITE Negative (NEGATIVE); URINE PROTEIN 1+ (NEGATIVE)
[2019-06-03 23:41] LABS: HYALINE CASTS 0.73 /lpf (0-8); URINE BACTERIA 2.9 /hpf (NEGATIVE); URINE RBC 2.3 /hpf (0-4); URINE WBC 0.6 /hpf (0-5)
[2019-06-04] MEDS ORDERED: ACETAMINOPHEN 1000 MG/100 ML VIAL (NON FORMULARY) IVPB SCH (02:30)
--- NOTE | 2019-06-04 02:41 | HP ---
CHIEF COMPLAINT: 83 year old female with PMH of 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 She presented to the ER with complaints of pain in her right knee along with paraspinal tenderness after a mechanical fall few a hours before presenting to the ER. PCP: Dr. Mariano HISTORY OF PRESENT ILLNESS: This is an 83 year old female with PMH of AVM in Rt colon, HTN, Hep C, arthritis , anemia, GERD. She presented to the ER with complaints of pain in her right knee along with paraspinal tenderness after a mechanical fall few a hours before presenting to the ER. She was getting out of her bed and tripped as the bedroom mat slid from under her foot. She fell backwards and landed on her gluteal region, with no head trauma or loss of consciousness involved. Her was present in the room at the time, and helped her up onto a chair. She normally ambulates with a cane or a walker, and states that she has had pain in her right knee since her leg surgery in September 2017, with no changes in the pain since her fall today. She has been unable to ambulate or bear any weight on her knee since the fall. She denies any dizziness or light headedness prior to falling, and denies any LOC after she fell. In September 2017, she was getting out of her car when she suddenly lost sensation in her right leg, resulting in an inability to ambulate. She sat down on the ground to prevent a fall, and was brought to [facility]. She was found to have a Rt sided intertrochanteric fracture, and underwent gamma nail surgery. She states that she has had right sided knee pain since the surgery, and take Tylenol at home to manage the pain. She was also admitted at [facility] in October 2018 for anemia, and received PRBCs. EGD was done, but no source was located at the time. ER course was notable for: (1) XRays for Hip/Pelvis/knee/tibia/fibula/ankle/foot without fx (2) Tylenol for pain Recent Travel: denies PAST MEDICAL HISTORY: As listed in HPI PAST SURGICAL HISTORY: Hysterectomy Gamma nail for Rt intertrochanteric fx September 2017 Social History: Smoking: denies Alcohol: denies Drugs: denies Allergies Penicillins Allergy (Unknown, Verified 09/07/18 14:31) pt states i am not sure codeine [Codeine] Allergy (Verified 09/07/18 14:31) HOME MEDICATIONS: Home Medications Medication Instructions Recorded Simvastatin [Zocor] 20 mg PO HS #0 tablet 06/03/11 Fluticasone/Vilanterol [Breo 1 each IH DAILY 12/02/15 Ellipta 100-25 Mcg INH] Meclizine HCl [Antivert -] 12.5 mg PO TID PRN #30 tablet 05/30/17 Amlodipine Besylate 5 mg PO DAILY 10/12/17 Amitriptyline HCl [Elavil -] 10 mg PO HS tablet 10/18/17 Losartan Potassium 50 mg PO DAILY 03/08/18 Pantoprazole Sodium [Protonix -] 40 mg PO DAILY #60 tablet.ec 09/11/18 REVIEW OF SYSTEMS CONSTITUTIONAL: Absent: fever, chills, diaphoresis, generalized weakness, malaise, loss of appetite, weight change HEENT: Absent: rhinorrhea, nasal congestion, throat pain, throat swelling, difficulty swallowing, mouth swelling, ear pain, eye pain, visual changes CARDIOVASCULAR: Absent: chest pain, syncope, palpitations, irregular heart rate, lightheadedness , peripheral edema RESPIRATORY: Absent: cough, shortness of breath, dyspnea with exertion, orthopnea, wheezing, stridor, hemoptysis GASTROINTESTINAL: Absent: abdominal pain, abdominal distension, nausea, vomiting, diarrhea, constipation, melena, hematochezia GENITOURINARY: Absent: dysuria, frequency, urgency, hesitancy, hematuria, flank pain, genital pain MUSCULOSKELETAL: Absent: myalgia, arthralgia, joint swelling, back pain, neck pain SKIN: Absent: rash, itching, pallor HEMATOLOGIC/IMMUNOLOGIC: Absent: easy bleeding, easy bruising, lymphadenopathy, frequent infections ENDOCRINE: Absent: unexplained weight gain, unexplained weight loss, heat intolerance, cold intolerance NEUROLOGIC: Absent: headache, focal weakness or paresthesias, dizziness, unsteady gait, seizure, mental status changes, bladder or bowel incontinence PSYCHIATRIC: Absent: anxiety, depression, suicidal or homicidal ideation, hallucinations. PHYSICAL EXAMINATION Vital Signs - 24 hr 06/03/19 18:17 Temperature 98.3 F Pulse Rate 107 H Respiratory 18 Rate Blood Pressure 144/84 O2 Sat by Pulse 97 Oximetry (%) GENERAL: AOx3 HEAD: Normal with no signs of trauma. EYES: Pupils equal, round and reactive to light, extraocular movements intact, sclera anicteric, conjunctiva clear. No lid lag. EARS, NOSE, THROAT: Ears normal, nares patent, oropharynx clear without exudates. Moist mucous membranes. NECK: Normal range of motion, supple without lymphadenopathy, JVD, or masses. LUNGS: Breath sounds equal, clear to auscultation bilaterally. No wheezes, and no crackles. No accessory muscle use. HEART: Regular rate and rhythm, normal S1 and S2 without murmur, rub or gallop. ABDOMEN: Soft, nontender, not distended, normoactive bowel sounds, no guarding, no rebound, no masses. No hepatomegaly or splenomegaly. UPPER EXTREMITIES: 2+ pulses, warm, well-perfused. No cyanosis. No clubbing. No peripheral edema. LOWER EXTREMITIES: 2+ pulses, warm, well-perfused, knee brace placed, no swelling or tenderness noticed NEUROLOGICAL: Motor 5/5, sensations intact PSYCHIATRIC: Cooperative. Good eye contact. Appropriate mood and affect. SKIN: Warm, dry, normal turgor, no rashes or lesions noted, normal capillary refill. Laboratory Results - last 24 hr 06/03/19 06/03/19 06/03/19 20:25 20:25 22:47 WBC 8.0 RBC 5.01 Hgb 15.2 Hct 46.2 H D MCV 92.1 MCH 30.4 D MCHC 33.0 RDW 13.2 D Plt Count 309 MPV 8.9 D Absolute Neuts (auto) 6.0 Neutrophils % 74.5 D Lymphocytes % 13.1 D Monocytes % 11.8 H Eosinophils % 0.2 D Basophils % 0.4 Nucleated RBC % 0 Sodium 134 L Potassium 4.0 Chloride 99 Carbon Dioxide 25 Anion Gap 10 BUN 11.2 Creatinine 0.7 Est GFR (CKD-EPI)AfAm 92.21 Est GFR (CKD-EPI)NonAf 79.56 Random Glucose 111 H Calcium 9.7 Total Bilirubin 0.5 AST 30 ALT 40 Alkaline Phosphatase 105 Total Protein 8.1 Albumin 4.0 Urine Color Yellow Urine Appearance Clear Urine pH 6.0 Ur Specific [place] 1.020 Urine Protein 1+ H Urine Glucose (UA) Negative Urine Ketones Trace Urine Blood Trace-lysed Urine Nitrite Negative Urine Bilirubin Negative Urine Urobilinogen 2.0 H Ur Leukocyte Esterase Negative Urine WBC (Auto) 0.6 Urine RBC (Auto) 2.3 Urine Casts (Auto) 0.73 U Epithel Cells (Auto) 2.0 Urine Bacteria (Auto) 2.9 ASSESSMENT/PLAN: 83F with PMH of 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 She presented to the ER with complaints of pain in her right knee along with paraspinal tenderness after a mechanical fall few a hours before presenting to the ER. #Mechanical fall - XRays for Hip/Pelvis/knee/tibia/fibula/ankle/foot without fx - Rt leg braced and immobilized - PT consult placed - Tylenol 1g Q6 for pain - Bed rest and fall precautions - Orthostatics negative: Supine 158/95 HR 97, Sitting 157/93 HR 98, patient unable to stand #Hx of Anemia - H/H currently 15.2/46.2 - Will continue to monitor #Hx of HTN - Continue home dose of losartan, amlodipine once confirmed - Norvasc 5mg given once due to elevated BP #Hx of HLD - Continue home dose Simvastatin once confirmed #FEN - Na controlled diet started #DVT - Heparin SQ Visit type - Emergency Visit Emergency Visit: Yes ED Registration Date: 06/04/19 Care time: The patient presented to the Emergency Department on the above date and was hospitalized for further evaluation of their emergent condition. - New Patient This patient is new to me today: Yes Date on this admission: 06/04/19 - Critical Care Critical Care patient: No ATTENDING PHYSICIAN STATEMENT I saw and evaluated the patient. I reviewed the resident's note and discussed the case with the resident. I agree with the resident's findings and plan as documented. SUBJECTIVE: OBJECTIVE: ASSESSMENT AND PLAN:
--- NOTE | 2019-06-04 02:48 | PN ---
Teaching Attending Note Name of Resident: Daniele Whitfield ATTENDING PHYSICIAN STATEMENT I saw and evaluated the patient. I reviewed the resident's note and discussed the case with the resident. I agree with the resident's findings and plan as documented. SUBJECTIVE: 83-year-old woman with a history of AV malformation in the right colon, multiple transfusions for anemia, GERD, diverticulosis, hypertension, asthma, walks baseline with walker presents status post fall on 06/03/2019, hitting her right knee. Denied loss of consciousness. Was unable to stand up independently , EMS was called. OBJECTIVE: Last Vital Signs Temp Pulse Resp BP Pulse Ox 98.3 F 107 H 18 144/84 97 06/03/19 18:17 06/03/19 18:17 06/03/19 18:17 06/03/19 18:17 06/03/19 18:17 GENERAL: Well developed, well nourished. Awake and alert. No acute distress. HEENT: Normocephalic, atraumatic. PERRLA, EOMI. No conjunctival pallor. Sclera are non- icteric. Moist mucous membranes. Oropharynx is clear. NECK: Supple. Full ROM. No JVD. Carotid pulses 2+ and symmetric, without bruits. No thyromegaly. No lymphadenopathy. CARDIOVASCULAR: Regular rate and rhythm. No murmurs, rubs, or gallops. Distal pulses are 2+ and symmetric. PULMONARY: No evidence of respiratory distress. Lungs clear to auscultation bilaterally. No wheezing, rales or rhonchi. ABDOMINAL: Soft. Non-tender. Non-distended. No rebound or guarding. No organomegaly. Normoactive bowel sounds. MUSCULOSKELETAL Right lower extremity in knee brace, no tenderness, no deformities EXTREMITIES: No cyanosis. No clubbing. No edema. No calf tenderness. SKIN: Warm and dry. Normal capillary refill. No rashes. No jaundice. PSYCHIATRIC: Cooperative. Good eye contact. Appropriate mood and affect. Abnormal Lab Results 06/03/19 06/03/19 06/03/19 20:25 20:25 22:47 Hct 46.2 H D Monocytes % 11.8 H Sodium 134 L Random Glucose 111 H Urine Protein 1+ H Urine Urobilinogen 2.0 H ASSESSMENT AND PLAN: 83-year-old woman status post fall [facility] Follow-up official imaging reads of right lower extremity Bedrest and fall precautions Physical therapy evaluation Check orthostatics Tylenol p.o. as needed if pain #Hypertension Continue with home dose losartan, amlodipine #Dyslipidemia Continue with home dose simvastatin #DVT prophylaxisheparin subcutaneously
[2019-06-04] MEDS ORDERED: ACETAMINOPHEN INJECTION 100 ML IVPB ONE (03:04)
[2019-06-04] MEDS: ACETAMINOPHEN 325 MG TABLET (FP) PO PRN ×3 (04:25→18:09)
[2019-06-04] MEDS ORDERED: MECLIZINE HCL 12.5 MG TABLET PO PRN (06:06)
[2019-06-04] MEDS ORDERED: HEPARIN NA (PORCINE) 5,000 UNITS/ML 1ML VIAL ONE (06:08)
[2019-06-04] MEDS: HEPARIN NA (PORCINE) 5,000 UNITS/ML 1ML VIAL SQ SCH ×3 (06:21→23:46)
[2019-06-04] MEDS ORDERED: ENOXAPARIN NA (PORCINE) 40 MG/0.4 ML DISP.SYRIN SQ SCH (10:00)
[2019-06-04] MEDS: PANTOPRAZOLE 40 MG TABLET PO SCH (10:05)
[2019-06-04] MEDS: amLODIPine BESYLATE 5 MG TABLET (FP) PO SCH (10:05)
[2019-06-04] MEDS: LOSARTAN POTASSIUM 50 MG TABLET (FP) PO SCH (10:05)
[2019-06-04] MEDS ORDERED: ACETAMINOPHEN 325 MG TABLET (FP) ONE ×2 (10:26→18:09)
[2019-06-04 10:38] LABS: ALBUMIN 3.4 g/dl (3.4-5.0); BILIRUBIN,TOTAL 0.4 mg/dL (0.2-1); BLOOD UREA NITROGEN 7.7 mg/dL (7-18); CALCIUM 8.7 mg/dL (8.5-10.1); CREATININE 0.6 mg/dL (0.55-1.3); POTASSIUM 3.2 mmol/L (3.5-5.1); TOT PROT 6.9 g/dl (6.4-8.2)
[2019-06-04] MEDS ORDERED: POTASSIUM CHLORIDE TABS 20 MEQ TABLET.ER (FP) PO ONE ×4 (11:17→15:30)
--- NOTE | 2019-06-04 13:51 | EKG ---
Test Reason : Blood Pressure : / mmHG Vent. Rate : 093 BPM Atrial Rate : 093 BPM P-R Int : 198 ms QRS Dur : 084 ms QT Int : 364 ms P-R-T Axes : 049 051 046 degrees QTc Int : 452 ms NORMAL SINUS RHYTHM NONSPECIFIC ST ABNORMALITY ABNORMAL ECG WHEN COMPARED WITH ECG OF 07-SEP-2018 14:43, NO SIGNIFICANT CHANGE WAS FOUND Confirmed by Liz Gonzalez ([id number]) on 06/04/2019 1:51:25 PM Referred By: Confirmed By:Liz Gonzalez
--- NOTE | 2019-06-04 15:27 | PN ---
Physical Exam: SUBJECTIVE: Patient seen and examined. Patient states that her pain is better controlled compared to when she came into the ED. She has been to [facility] in the past for rehab. Patient is open to going to a SNF for rehab at this time. OBJECTIVE: Vital Signs Period Temp Pulse Resp BP Sys/[place] Pulse Ox Last 24 Hr 98.1 F-98.3 F 78-107 15-18 142-156/77-90 96-100 GENERAL: The patient is awake, alert, and fully oriented, in no acute distress. HEAD: Normal with no signs of trauma. EYES: EOMI, no ptosis ENT: MMM NECK: Trachea midline, full range of motion, supple. LUNGS: Breath sounds equal, clear to auscultation bilaterally, no wheezes, no crackles, no accessory muscle use. HEART: RRR, systolic murmur noted ABDOMEN: Soft, nontender, nondistended, normoactive bowel sounds, no guarding MSK: no spinal tenderness to palpation EXTREMITIES: 2+ pulses, warm, well-perfused, no edema. Knee brace in place over RLE. mild tenderness to palpation over lateral aspect of left knee. NEUROLOGICAL: Normal speech, gait not observed. No facial droop. Sensation intact throughout PSYCH: Normal mood, normal affect. SKIN: Warm, dry, normal turgor, no rashes or lesions noted Laboratory Results - last 24 hr 06/03/19 06/03/19 06/03/19 20:25 20:25 22:47 WBC 8.0 RBC 5.01 Hgb 15.2 Hct 46.2 H D MCV 92.1 MCH 30.4 D MCHC 33.0 RDW 13.2 D Plt Count 309 MPV 8.9 D Absolute Neuts (auto) 6.0 Neutrophils % 74.5 D Lymphocytes % 13.1 D Monocytes % 11.8 H Eosinophils % 0.2 D Basophils % 0.4 Nucleated RBC % 0 Sodium 134 L Potassium 4.0 Chloride 99 Carbon Dioxide 25 Anion Gap 10 BUN 11.2 Creatinine 0.7 Est GFR (CKD-EPI)AfAm 92.21 Est GFR (CKD-EPI)NonAf 79.56 Random Glucose 111 H Calcium 9.7 Total Bilirubin 0.5 AST 30 ALT 40 Alkaline Phosphatase 105 Total Protein 8.1 Albumin 4.0 Urine Color Yellow Urine Appearance Clear Urine pH 6.0 Ur Specific [place] 1.020 Urine Protein 1+ H Urine Glucose (UA) Negative Urine Ketones Trace Urine Blood Trace-lysed Urine Nitrite Negative Urine Bilirubin Negative Urine Urobilinogen 2.0 H Ur Leukocyte Esterase Negative Urine WBC (Auto) 0.6 Urine RBC (Auto) 2.3 Urine Casts (Auto) 0.73 U Epithel Cells (Auto) 2.0 Urine Bacteria (Auto) 2.9 06/04/19 09:55 WBC RBC Hgb Hct MCV MCH MCHC RDW Plt Count MPV Absolute Neuts (auto) Neutrophils % Lymphocytes % Monocytes % Eosinophils % Basophils % Nucleated RBC % Sodium 134 L Potassium 3.2 L Chloride 102 Carbon Dioxide 24 Anion Gap 8 BUN 7.7 Creatinine 0.6 Est GFR (CKD-EPI)AfAm 97.01 Est GFR (CKD-EPI)NonAf 83.70 Random Glucose 122 H Calcium 8.7 Total Bilirubin 0.4 AST 21 ALT 36 Alkaline Phosphatase 92 Total Protein 6.9 Albumin 3.4 Urine Color Urine Appearance Urine pH Ur Specific [place] Urine Protein Urine Glucose (UA) Urine Ketones Urine Blood Urine Nitrite Urine Bilirubin Urine Urobilinogen Ur Leukocyte Esterase Urine WBC (Auto) Urine RBC (Auto) Urine Casts (Auto) U Epithel Cells (Auto) Urine Bacteria (Auto) Active Medications Generic Name Dose Route Start Last Admin Trade Name Freq PRN Reason Stop Dose Admin Acetaminophen 650 mg 06/04/19 03:26 06/04/19 04:25 Tylenol - PO 650 mg Q6H PRN Administration Fever Or Pain Amitriptyline HCl 10 mg 06/04/19 22:00 Elavil - PO HS SARAI Amlodipine Besylate 5 mg 06/04/19 10:00 06/04/19 10:05 Norvasc - PO 5 mg DAILY SARAI Administration Atorvastatin Calcium 10 mg 06/04/19 22:00 Lipitor - PO HS SARAI Heparin Sodium (Porcine) 5,000 unit 06/04/19 06:00 06/04/19 14:21 Heparin - SQ 5,000 unit TID SARAI Administration Losartan Potassium 50 mg 06/04/19 10:00 06/04/19 10:05 Cozaar - PO 50 mg DAILY SARAI Administration Meclizine HCl 12.5 mg 06/04/19 06:06 Antivert - PO TID PRN VERTIGO Pantoprazole Sodium 40 mg 06/04/19 10:00 06/04/19 10:05 Protonix - PO 40 mg DAILY SARAI Administration ASSESSMENT/PLAN: 83 y/o/f with PMHx of 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 She presented to the ER with complaints of pain in her right knee along with paraspinal tenderness after a mechanical fall few a hours before presenting to the ER. #Mechanical fall - XRays for Hip/Pelvis/knee/tibia/fibula/ankle/foot without fx - Rt leg braced and immobilized - PT consult placed - patient able to walk 25 ft with a rolling walker - Tylenol 650mg Q6H PRN - Bed rest and fall precautions - Orthostatics negative: Supine 158/95 HR 97, Sitting 157/93 HR 98, patient unable to stand #Hx of Anemia - H/H currently 15.2/46.2 - Will continue to monitor #Hx of HTN - Continue home Losartan, Norvasc #Hx of HLD - patient not on Simvastatin as per pharmacy #FEN - Sodium controlled diet #DVT - Heparin SQ #Disposition - Patient to require SNF placement for rehab, social work aware Visit type - Emergency Visit Emergency Visit: Yes ED Registration Date: 06/04/19 Care time: The patient presented to the Emergency Department on the above date and was hospitalized for further evaluation of their emergent condition. - New Patient This patient is new to me today: Yes Date on this admission: 06/04/19 - Critical Care Critical Care patient: No ATTENDING PHYSICIAN STATEMENT I saw and evaluated the patient. I reviewed the resident's note and discussed the case with the resident. I agree with the resident's findings and plan as documented. SUBJECTIVE: OBJECTIVE: ASSESSMENT AND PLAN:
--- NOTE | 2019-06-04 17:36 | CONSULT ---
Consult - text type - Consultation Consultation Note: FULL CONSULT DICTATED IMP: SEVERE DJD RIGHT KNEE BELOW PREVIOUS IM HALEY FEMUR, NO ACUTE PATHOLOGY PLAN: PATIENT NEEDS TOTAL KNEE REPLACERMENT BUT DOESNT WANT IT. PT, KNEE BRACE , PLACEMENT
[2019-06-04] MEDS ORDERED: KETOROLAC TROMETHAMINE 30 MG/1 ML VIAL IVPUSH ONE (19:16)
[2019-06-04] MEDS ORDERED: SODIUM CHLORIDE 500 ML IV STA (19:35)
[2019-06-04] MEDS ORDERED: SODIUM CHLORIDE 1,000 ML IV SCH (21:45)
[2019-06-04] MEDS: AMITRIPTYLINE HCL 10 MG TABLET PO SCH (23:44)
[2019-06-04] MEDS: ATORVASTATIN CA 10 MG TABLET (FP) PO SCH (23:46)
[2019-06-05 00:18] VITALS: BMI 31.4
[2019-06-05] MEDS: HEPARIN NA (PORCINE) 5,000 UNITS/ML 1ML VIAL SQ SCH ×3 (05:24→23:15)
[2019-06-05] MEDS: ACETAMINOPHEN 325 MG TABLET (FP) PO PRN ×2 (05:49→15:19)
--- NOTE | 2019-06-05 08:40 | PN ---
Physical Exam: SUBJECTIVE: Patient seen and examined. Tachycardic overnight, seen by night resident. EKG performed, sinus tachycardia to the 110s, standing fluids ordered. Patient does not complain of pain this morning. Denies chest pain, pain , palpitations, SOB, abd pain, fever, chills. OBJECTIVE: Vital Signs Period Temp Pulse Resp BP Sys/[place] Pulse Ox Last 24 Hr 97.9 F-99.3 F 78-129 18-22 140-159/67-106 95-100 GENERAL: The patient is awake, alert, and fully oriented, in no acute distress. HEAD: Normal with no signs of trauma. EYES: EOMI, no ptosis ENT: MMM NECK: Trachea midline, full range of motion, supple. LUNGS: Breath sounds equal, clear to auscultation bilaterally, no wheezes, no crackles, no accessory muscle use. HEART: tachycardic ABDOMEN: Soft, nontender, nondistended, normoactive bowel sounds, no guarding MSK: no spinal tenderness to palpation EXTREMITIES: 2+ pulses, warm, well-perfused, no edema. Knee brace in place over RLE NEUROLOGICAL: Normal speech, gait not observed. No facial droop. Sensation intact throughout PSYCH: Normal mood, normal affect. SKIN: Warm, dry, normal turgor Laboratory Results - last 24 hr 06/04/19 09:55 Sodium 134 L Potassium 3.2 L Chloride 102 Carbon Dioxide 24 Anion Gap 8 BUN 7.7 Creatinine 0.6 Est GFR (CKD-EPI)AfAm 97.01 Est GFR (CKD-EPI)NonAf 83.70 Random Glucose 122 H Calcium 8.7 Total Bilirubin 0.4 AST 21 ALT 36 Alkaline Phosphatase 92 Total Protein 6.9 Albumin 3.4 Active Medications Generic Name Dose Route Start Last Admin Trade Name Freq PRN Reason Stop Dose Admin Acetaminophen 650 mg 06/04/19 03:26 06/05/19 05:49 Tylenol - PO 650 mg Q6H PRN Administration Fever Or Pain Amitriptyline HCl 10 mg 06/04/19 22:00 06/04/19 23:44 Elavil - PO 10 mg HS SARAI Administration Amlodipine Besylate 5 mg 06/04/19 10:00 06/04/19 10:05 Norvasc - PO 5 mg DAILY SARAI Administration Atorvastatin Calcium 10 mg 06/04/19 22:00 06/04/19 23:46 Lipitor - PO 10 mg HS SARAI Administration Heparin Sodium (Porcine) 5,000 unit 06/04/19 06:00 06/05/19 05:24 Heparin - SQ 5,000 unit TID SARAI Administration Sodium Chloride 1,000 mls @ 100 mls/hr 06/04/19 21:45 06/04/19 23:45 Normal Saline - IV 100 mls/hr ASDIR SARAI Administration Losartan Potassium 50 mg 06/04/19 10:00 06/04/19 10:05 Cozaar - PO 50 mg DAILY SARAI Administration Meclizine HCl 12.5 mg 06/04/19 06:06 Antivert - PO TID PRN VERTIGO Pantoprazole Sodium 40 mg 06/04/19 10:00 06/04/19 10:05 Protonix - PO 40 mg DAILY SARAI Administration ASSESSMENT/PLAN: 83 y/o/f with PMHx of 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 She presented to the ER with complaints of pain in her right knee along with paraspinal tenderness after a mechanical fall few a hours before presenting to the ER. #Mechanical fall - XRays for Hip/Pelvis/knee/tibia/fibula/ankle/foot without fx - Rt leg braced and immobilized -> will speak with Dr. Novak regarding further need for leg brace - PT consult placed - patient able to walk 25 ft with a rolling walker - open to rehab at SNF - Seen by Ortho (Dr. Novak) - patient needs total knee replacement but does not want it. Recommend knee brace, PT, placement. - Tylenol 650mg Q6H PRN - Bed rest and fall precautions - Orthostatics negative: Supine 158/95 HR 97, Sitting 157/93 HR 98, patient unable to stand #Pneumonia - Tachycardic likely 2/2 to pneumonia - CXR showing RUL infiltrate - repeat EKG ordered showing sinus tachycardia to 107bpm - Started on Azithromycin, Ceftriaxone - monitor temp, WBC #Hx of Anemia - H/H currently 14.4/42.9 - Will continue to monitor #Hx of HTN - Continue home Losartan, Norvasc #Hx of HLD - patient not on Simvastatin as per pharmacy #FEN - Sodium controlled diet - NS @ 42mls/hr #DVT - Heparin SQ #Disposition - Patient to require SNF placement for rehab, will need to stay until for placement as per washtub worker Visit type - Emergency Visit Emergency Visit: Yes ED Registration Date: 06/04/19 Care time: The patient presented to the Emergency Department on the above date and was hospitalized for further evaluation of their emergent condition. - New Patient This patient is new to me today: No - Critical Care Critical Care patient: No ATTENDING PHYSICIAN STATEMENT I saw and evaluated the patient. I reviewed the resident's note and discussed the case with the resident. I agree with the resident's findings and plan as documented. SUBJECTIVE: OBJECTIVE: ASSESSMENT AND PLAN:
--- NOTE | 2019-06-05 09:12 | CONS ---
ORTHOPAEDIC CONSULTATION DATE OF CONSULTATION: 06/04/2019 HISTORY: Patient is well known to me. I performed an intramedullary rodding to the right femur over a year ago. Patient has known DJD in her right knee. She has multiple falls. She has been offered total knee replacement in the past but has refused. Now presents to the emergency room after another fall and difficulty ambulating. PHYSICAL EXAMINATION: She has equal limb length. No crepitus, ecchymosis. She does have diffuse tenderness throughout her right knee. No erythema. No instability of varus, valgus, anterior, posterior. Range of motion is poor from about 3 degrees to about 70 degrees. Significant crepitus with range of motion. Calf is soft. neurovascularly intact. X-rays were taken today in the emergency room at [facility] are positive for severe tricompartmental DJD of the knee fracture, dislocation, lesions of the right knee. IMPRESSION: Severe degenerative joint disease, right knee below her previous intramedullary katrina. PLAN: I have offered her total knee replacement again. Patient still is adamant she does not want to consider that. At this point, there is nothing new going on with her. She is place in a knee brace, which will help her ambulate some. She can take occasional nonsteroidals. I can offer her an injection of cortisone if she comes in as an outpatient to my office, but otherwise, nothing more to do. The patient is being admitted to [facility] for rehabilitation placement. Otherwise, nothing further to do at this time. JOSE HANLEY M.D. JAY [id number]
[2019-06-05 09:14] LABS: HEMATOCRIT 42.9 % (32.4-45.2); HEMOGLOBIN 14.4 GM/dL (10.7-15.3); MCH 30.3 pg (25.7-33.7); MCHC 33.7 g/dl (32.0-36.0); MEAN PLT VOLUME 8.2 fl (7.5-11.1); PLATELET COUNT 238 K/MM3 (134-434); RBC 4.77 M/mm3 (3.60-5.2); RDW 13.4 % (11.6-15.6); WHITE BLOOD COUNT 8.1 K/mm3 (4.0-10.0)
[2019-06-05] MEDS: LOSARTAN POTASSIUM 50 MG TABLET (FP) PO SCH (09:27)
[2019-06-05] MEDS: amLODIPine BESYLATE 5 MG TABLET (FP) PO SCH (09:27)
[2019-06-05] MEDS: PANTOPRAZOLE 40 MG TABLET PO SCH (09:27)
[2019-06-05 09:36] LABS: BLOOD UREA NITROGEN 7.7 mg/dL (7-18); CALCIUM 8.8 mg/dL (8.5-10.1); CREATININE 0.5 mg/dL (0.55-1.3); POTASSIUM 4.1 mmol/L (3.5-5.1)
[2019-06-05] MEDS ORDERED: ALBUTEROL SO4 2.5/IPRATROPIUM 0.5 INH SOL 3 ML VIAL.NEB. NEB ONE (11:45)
--- NOTE | 2019-06-05 11:56 | EKG ---
Test Reason : Blood Pressure : / mmHG Vent. Rate : 107 BPM Atrial Rate : 107 BPM P-R Int : 138 ms QRS Dur : 078 ms QT Int : 324 ms P-R-T Axes : -08 016 016 degrees QTc Int : 432 ms SINUS TACHYCARDIA OTHERWISE NORMAL ECG Confirmed by MD ROBE, BERTA ([id number]) on 06/05/2019 11:56:06 AM Referred By: ANNITA ZIMMER Confirmed By:BERTA NAGEL MD
[2019-06-05] MEDS ORDERED: SODIUM CHLORIDE 1,000 ML IV SCH (13:15)
[2019-06-05] MEDS: IPRATROPIUM BR 0.02% 0.5 MG/2.5 ML VIAL.NEB. NEB SCH ×2 (13:46→20:35)
[2019-06-05] MEDS ORDERED: DEXTROSE 5%-WATER - 50 ML IVPB ONE (13:48)
[2019-06-05] MEDS ORDERED: cefTRIAXone SODIUM 1 GM VIAL ONE (13:48)
[2019-06-05] MEDS ORDERED: IPRATROPIUM BR 0.02% 0.5 MG/2.5 ML VIAL.NEB. NEB SCH (14:00)
[2019-06-05] MEDS ORDERED: ALBUTEROL SO4 2.5/IPRATROPIUM 0.5 INH SOL 3 ML VIAL.NEB. NEB SCH (14:00)
[2019-06-05] MEDS: CEFTRIAXONE 1 GM in DEXTROSE 5%-WATER - 50 ML IVPB SCH (14:19)
[2019-06-05] MEDS ORDERED: ONDANSETRON 4 MG/2 ML VIAL IVPUSH ONE (14:52)
[2019-06-05] MEDS: AZITHROMYCIN IVPB 500 MG/250 ML BAG IVPB SCH (15:09)
--- NOTE | 2019-06-05 15:25 | PN ---
Teaching Attending Note Name of Resident: Isabel Paerkh ATTENDING PHYSICIAN STATEMENT I saw and evaluated the patient. I reviewed the resident's note and discussed the case with the resident. I agree with the resident's findings and plan as documented. SUBJECTIVE: R knee pain. no chest pain/palpitations/SOB. No cough/sputum. OBJECTIVE: Febrile, T 100.9. Audible wheeze. Tachycardic. Hemodynamically Stable. Last Vital Signs Temp Pulse Resp BP Pulse Ox 100.9 F H 121 H 28 H 149/92 95 06/05/19 14:34 06/05/19 14:34 06/05/19 14:34 06/05/19 14:34 06/04/19 19:30 HEENt - Atraumatic, Normocephalic. Heart - S1, S2, Tachy Lungs - scattered wheeze bilaterally Abdomen - Soft, non-tender. Bowel Sounds normal. Extremities - no edema, no calf tenderness. R knee in immobilizer. Laboratory Results - last 24 hr 06/05/19 06/05/19 07:45 07:45 WBC 8.1 RBC 4.77 Hgb 14.4 Hct 42.9 MCV 90.0 MCH 30.3 MCHC 33.7 RDW 13.4 Plt Count 238 D MPV 8.2 Sodium 133 L Potassium 4.1 Chloride 101 Carbon Dioxide 23 Anion Gap 9 BUN 7.7 Creatinine 0.5 L Est GFR (CKD-EPI)AfAm 103.01 Est GFR (CKD-EPI)NonAf 88.88 Random Glucose 101 Calcium 8.8 Magnesium 2.0 Current Medications Generic Name Dose Route Start Last Admin Trade Name Freq PRN Reason Stop Dose Admin Acetaminophen 650 mg 06/05/19 14:53 06/05/19 15:19 Tylenol - PO 650 mg Q6H PRN Administration Fever Or Pain Amitriptyline HCl 10 mg 06/04/19 22:00 06/04/19 23:44 Elavil - PO 10 mg HS SARAI Administration Amlodipine Besylate 5 mg 06/04/19 10:00 06/05/19 09:27 Norvasc - PO 5 mg DAILY SARAI Administration Atorvastatin Calcium 10 mg 06/04/19 22:00 06/04/19 23:46 Lipitor - PO 10 mg HS SARAI Administration Heparin Sodium (Porcine) 5,000 unit 06/04/19 06:00 06/05/19 15:09 Heparin - SQ 5,000 unit TID SARAI Administration Azithromycin 500 mg in 250 mls @ 250 mls/hr 06/05/19 13:15 06/05/19 15:09 Zithromax 500mg Ivpb (Pre-Docked) IVPB 250 mls/hr DAILY SARAI Administration Ceftriaxone Sodium 1 gm/ 50 mls @ 100 mls/hr 06/05/19 13:15 06/05/19 14:19 Dextrose IVPB 100 mls/hr DAILY SARAI Administration Sodium Chloride 1,000 mls @ 42 mls/hr 06/05/19 13:15 06/05/19 14:19 Normal Saline - IV 42 mls/hr ASDIR SARAI Administration Ipratropium [place] 1 amp 06/05/19 13:04 06/05/19 13:46 Atrovent 0.02% Nebulizer - NEB 1 amp RTID SARAI Administration Losartan Potassium 50 mg 06/04/19 10:00 06/05/19 09:27 Cozaar - PO 50 mg DAILY SARAI Administration Meclizine HCl 12.5 mg 06/04/19 06:06 Antivert - PO TID PRN VERTIGO Pantoprazole Sodium 40 mg 06/04/19 10:00 06/05/19 09:27 Protonix - PO 40 mg DAILY SARAI Administration Home Medications Medication Instructions Recorded Meclizine HCl [Antivert -] 12.5 mg PO TID PRN #30 tablet 05/30/17 Amlodipine Besylate 5 mg PO DAILY 10/12/17 Amitriptyline HCl [Elavil -] 10 mg PO HS tablet 10/18/17 Losartan Potassium 50 mg PO DAILY 03/08/18 Pantoprazole Sodium [Protonix -] 40 mg PO DAILY #60 tablet.ec 09/11/18 Potassium Chloride [Klor-Con M10] 10 meq PO DAILY 06/04/19 ASSESSMENT AND PLAN: 83 year old female with history of R colon AVM, s/p multiple transfusions for anemia, GERD, Diverticulosis, HTN, Asthma, mobilizes with walker presents status post fall on 06/03/2019, hitting her right knee. No preceding CP/ palpitations/lightheadedness. No HI or LOC. Now febrile, tachycardic, with RUL consolidation on CXR. 1. Sepsis secondary to Community Acquired Pneumonia. CXR - RUL infiltrate. Febrile, Tachycardia. IV fluid resuscitation. IV Ceftriaxone/Azithromycin. 2. HTN - continue Losartan, Norvasc. 3. OA R knee - acute exacerbation sec to mechanical fall. Eval by Ortho - recommendations appreciated. PT 4. HLD - Continue Statin. 5. Hypokalemia - resolved s/p repletion. 6. GERD - Continue PPI DVT Px - Heparin SQ
[2019-06-05] MEDS ORDERED: SODIUM CHLORIDE 250 ML IV STA (15:47)
[2019-06-05] MEDS: AMITRIPTYLINE HCL 10 MG TABLET PO SCH (23:15)
[2019-06-05] MEDS: ATORVASTATIN CA 10 MG TABLET (FP) PO SCH (23:15)
[2019-06-06] MEDS ORDERED: metoPROLOL SUCCINATE 25 MG TAB.SR.24H (FP) PO ONE (02:04)
[2019-06-06] MEDS ORDERED: ALBUTEROL SO4 2.5/IPRATROPIUM 0.5 INH SOL 3 ML VIAL.NEB. NEB ONE (05:55)
[2019-06-06] MEDS ORDERED: METOPROLOL TARTRATE 50 MG TABLET (FP) PO ONE (05:56)
[2019-06-06] MEDS: HEPARIN NA (PORCINE) 5,000 UNITS/ML 1ML VIAL SQ SCH ×3 (06:56→21:14)
[2019-06-06] MEDS: ACETAMINOPHEN 325 MG TABLET (FP) PO PRN (06:58)
[2019-06-06] MEDS ORDERED: SODIUM CHLORIDE 250 ML IV STA ×2 (07:42→14:13)
[2019-06-06] MEDS: IPRATROPIUM BR 0.02% 0.5 MG/2.5 ML VIAL.NEB. NEB SCH ×2 (08:50→15:40)
[2019-06-06 08:53] LABS: HEMATOCRIT 39.2 % (32.4-45.2); HEMOGLOBIN 13.3 GM/dL (10.7-15.3); MCH 30.3 pg (25.7-33.7); MCHC 33.8 g/dl (32.0-36.0); MEAN CELL VOLUME 89.5 fl (80-96); MEAN PLT VOLUME 8.6 fl (7.5-11.1); PLATELET COUNT 241 K/MM3 (134-434); RBC 4.38 M/mm3 (3.60-5.2); RDW 13.7 % (11.6-15.6); WHITE BLOOD COUNT 7.1 K/mm3 (4.0-10.0)
[2019-06-06 09:13] LABS: BLOOD UREA NITROGEN 11.1 mg/dL (7-18); CALCIUM 8.5 mg/dL (8.5-10.1); CREATININE 0.7 mg/dL (0.55-1.3); MAGNESIUM 1.9 mg/dL (1.8-2.4)
[2019-06-06] MEDS ORDERED: metoPROLOL SUCCINATE 25 MG TAB.SR.24H (FP) PO SCH (10:00)
[2019-06-06] MEDS ORDERED: cefTRIAXone SODIUM 1 GM VIAL ONE (10:39)
[2019-06-06] MEDS ORDERED: DEXTROSE 5%-WATER - 50 ML IVPB ONE (10:40)
[2019-06-06] MEDS: PANTOPRAZOLE 40 MG TABLET PO SCH (10:51)
[2019-06-06] MEDS: LOSARTAN POTASSIUM 50 MG TABLET (FP) PO SCH ×2 (10:51→14:58)
[2019-06-06] MEDS: amLODIPine BESYLATE 5 MG TABLET (FP) PO SCH ×2 (10:51→14:58)
[2019-06-06] MEDS: CEFTRIAXONE 1 GM in DEXTROSE 5%-WATER - 50 ML IVPB SCH (10:52)
[2019-06-06] MEDS: AZITHROMYCIN IVPB 500 MG/250 ML BAG IVPB SCH (10:53)
--- NOTE | 2019-06-06 13:31 | PN ---
Teaching Attending Note Name of Resident: Isabel Parekh ATTENDING PHYSICIAN STATEMENT I saw and evaluated the patient. I reviewed the resident's note and discussed the case with the resident. I agree with the resident's findings and plan as documented. SUBJECTIVE: SOB improved. No CP/palpitations. No cough/sputum. OBJECTIVE: Tmax 100.9. Hemodynamically Stable. Last Vital Signs Temp Pulse Resp BP Pulse Ox 97.8 F 83 24 H 93/70 96 06/06/19 12:12 06/06/19 12:12 06/06/19 12:12 06/06/19 12:12 06/05/19 21:00 Heart - S1, S2, RRR Lungs - scattered wheeze bilaterally, R sided crackles Abdomen - Soft, non-tender. Bowel Sounds normal. Extremities - no edema, no calf tenderness. Laboratory Results - last 24 hr 06/05/19 06/06/19 06/06/19 15:25 07:20 07:20 WBC 7.1 RBC 4.38 Hgb 13.3 Hct 39.2 MCV 89.5 MCH 30.3 MCHC 33.8 RDW 13.7 Plt Count 241 MPV 8.6 Sodium 131 L Potassium 4.0 Chloride 99 Carbon Dioxide 23 Anion Gap 10 BUN 11.1 Creatinine 0.7 Est GFR (CKD-EPI)AfAm 92.21 Est GFR (CKD-EPI)NonAf 79.56 Random Glucose 112 H Calcium 8.5 Magnesium 1.9 Influenza A (Rapid) Negative Influenza B (Rapid) Negative Current Medications Generic Name Dose Route Start Last Admin Trade Name Freq PRN Reason Stop Dose Admin Acetaminophen 650 mg 06/05/19 14:53 06/06/19 06:58 Tylenol - PO 650 mg Q6H PRN Administration Fever Or Pain Amitriptyline HCl 10 mg 06/04/19 22:00 06/05/19 23:15 Elavil - PO 10 mg HS SARAI Administration Amlodipine Besylate 5 mg 06/04/19 10:00 06/05/19 09:27 Norvasc - PO 5 mg DAILY SARAI Administration Atorvastatin Calcium 10 mg 06/04/19 22:00 06/05/19 23:15 Lipitor - PO 10 mg HS SARAI Administration Heparin Sodium (Porcine) 5,000 unit 06/04/19 06:00 06/06/19 06:56 Heparin - SQ 5,000 unit TID SARAI Administration Azithromycin 500 mg in 250 mls @ 250 mls/hr 06/05/19 13:15 06/06/19 10:53 Zithromax 500mg Ivpb (Pre-Docked) IVPB 250 mls/hr DAILY SARAI Administration Ceftriaxone Sodium 1 gm/ 50 mls @ 100 mls/hr 06/05/19 13:15 06/06/19 10:52 Dextrose IVPB 100 mls/hr DAILY SARAI Administration Ipratropium [place] 1 amp 06/05/19 13:04 06/06/19 08:50 Atrovent 0.02% Nebulizer - NEB 1 amp RTID SARAI Administration Losartan Potassium 50 mg 06/04/19 10:00 06/05/19 09:27 Cozaar - PO 50 mg DAILY SARAI Administration Meclizine HCl 12.5 mg 06/04/19 06:06 Antivert - PO TID PRN VERTIGO Pantoprazole Sodium 40 mg 06/04/19 10:00 06/06/19 10:51 Protonix - PO 40 mg DAILY SARAI Administration Home Medications Medication Instructions Recorded Meclizine HCl [Antivert -] 12.5 mg PO TID PRN #30 tablet 05/30/17 Amlodipine Besylate 5 mg PO DAILY 10/12/17 Amitriptyline HCl [Elavil -] 10 mg PO HS tablet 10/18/17 Losartan Potassium 50 mg PO DAILY 03/08/18 Pantoprazole Sodium [Protonix -] 40 mg PO DAILY #60 tablet.ec 09/11/18 Potassium Chloride [Klor-Con M10] 10 meq PO DAILY 06/04/19 ASSESSMENT AND PLAN: 83 year old female with history of R colon AVM, s/p multiple transfusions for anemia, GERD, Diverticulosis, HTN, Asthma, mobilizes with walker presents status post fall on 06/03/2019, hitting her right knee. No preceding CP/ palpitations/lightheadedness. No HI or LOC. Now febrile, tachycardic, with RUL consolidation on CXR. 1. Sepsis secondary to Community Acquired Pneumonia. CXR - RUL infiltrate. Intermittent fever, tachycardia. IV Ceftriaxone/Azithromycin. Ipratropium [place]. Tylenol PRN Currently Afebrile with normal heart rate and rhythm s/p Metoprolol 75mg given overnight. Now with borderline BP. No further Metoprolol. Will monitor cardiopulmonary status closely. 2. HTN - continue Losartan, Norvasc. 3. OA R knee - acute exacerbation sec to mechanical fall. No fracture/ dislocation. Eval by Ortho - recommendations appreciated. No need for knee immobilizer. PT 4. HLD - Continue Statin. 5. Hypokalemia - resolved s/p repletion. 6. GERD - Continue PPI DVT Px - Heparin SQ
--- NOTE | 2019-06-06 14:29 | PN ---
Physical Exam: SUBJECTIVE: Patient seen and examined. Feeling dizzy this morning, fees like her vertigo to her. Otherwise denies shortness of breath, abd pain, chest pain, chills. OBJECTIVE: Vital Signs Period Temp Pulse Resp BP Sys/[place] Pulse Ox Last 24 Hr 97.6 F-100.9 F 62-126 - 92-165/58-101 96 GENERAL: The patient is awake, alert, and fully oriented, in no acute distress. HEAD: Normal with no signs of trauma. EYES: EOMI, no ptosis ENT: MMM NECK: Trachea midline, full range of motion, supple. LUNGS: coarse breath sounds at the bases, mild wheezing, no accessory muscle use. HEART: RRR, no murmur noted ABDOMEN: Soft, nontender, nondistended, normoactive bowel sounds, no guarding MSK: no spinal tenderness to palpation EXTREMITIES: 2+ pulses, warm, well-perfused, no edema. decreased range of motion of right knee due to pain/stiffness NEUROLOGICAL: Normal speech, gait not observed. No facial droop. Sensation intact throughout PSYCH: Normal mood, normal affect. SKIN: Warm, dry, normal turgor Laboratory Results - last 24 hr 06/05/19 06/06/19 06/06/19 15:25 07:20 07:20 WBC 7.1 RBC 4.38 Hgb 13.3 Hct 39.2 MCV 89.5 MCH 30.3 MCHC 33.8 RDW 13.7 Plt Count 241 MPV 8.6 Sodium 131 L Potassium 4.0 Chloride 99 Carbon Dioxide 23 Anion Gap 10 BUN 11.1 Creatinine 0.7 Est GFR (CKD-EPI)AfAm 92.21 Est GFR (CKD-EPI)NonAf 79.56 Random Glucose 112 H Calcium 8.5 Magnesium 1.9 Influenza A (Rapid) Negative Influenza B (Rapid) Negative Active Medications Generic Name Dose Route Start Last Admin Trade Name Freq PRN Reason Stop Dose Admin Acetaminophen 650 mg 06/05/19 14:53 06/06/19 06:58 Tylenol - PO 650 mg Q6H PRN Administration Fever Or Pain Amitriptyline HCl 10 mg 06/04/19 22:00 06/05/19 23:15 Elavil - PO 10 mg HS SARAI Administration Amlodipine Besylate 5 mg 06/04/19 10:00 06/05/19 09:27 Norvasc - PO 5 mg DAILY SARAI Administration Atorvastatin Calcium 10 mg 06/04/19 22:00 06/05/19 23:15 Lipitor - PO 10 mg HS SARAI Administration Heparin Sodium (Porcine) 5,000 unit 06/04/19 06:00 06/06/19 06:56 Heparin - SQ 5,000 unit TID SARAI Administration Azithromycin 500 mg in 250 mls @ 250 mls/hr 06/05/19 13:15 06/06/19 10:53 Zithromax 500mg Ivpb (Pre-Docked) IVPB 250 mls/hr DAILY SARAI Administration Ceftriaxone Sodium 1 gm/ 50 mls @ 100 mls/hr 06/05/19 13:15 06/06/19 10:52 Dextrose IVPB 100 mls/hr DAILY SARAI Administration Sodium Chloride 250 mls @ 250 mls/hr 06/06/19 14:13 Normal Saline - IV 06/06/19 15:12 ASDIR STA Ipratropium [place] 1 amp 06/05/19 13:04 06/06/19 08:50 Atrovent 0.02% Nebulizer - NEB 1 amp RTID SARAI Administration Losartan Potassium 50 mg 06/04/19 10:00 06/05/19 09:27 Cozaar - PO 50 mg DAILY SARAI Administration Meclizine HCl 12.5 mg 06/04/19 06:06 Antivert - PO TID PRN VERTIGO Pantoprazole Sodium 40 mg 06/04/19 10:00 06/06/19 10:51 Protonix - PO 40 mg DAILY SARAI Administration ASSESSMENT/PLAN: 83 y/o/f with PMHx of 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 She presented to the ER with complaints of pain in her right knee along with paraspinal tenderness after a mechanical fall few a hours before presenting to the ER. #Mechanical fall - XRays for Hip/Pelvis/knee/tibia/fibula/ankle/foot without fx - leg brace removed, patient encouraged to work on range of motion of right knee - PT consult placed - patient able to walk 25 ft with a rolling walker - awaiting placement to SNF - Seen by Ortho (Dr. Novak) - patient needs total knee replacement but does not want it. Recommend knee brace as needed, PT, placement. - Tylenol 650mg Q6H PRN - Bed rest and fall precautions - Orthostatics negative: Supine 158/95 HR 97, Sitting 157/93 HR 98, patient unable to stand #Pneumonia - Tachycardic resolved - CXR showing RUL infiltrate, infiltrate vs. 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 - New Patient This patient is new to me today: No - Critical Care Critical Care patient: No ATTENDING PHYSICIAN STATEMENT I saw and evaluated the patient. I reviewed the resident's note and discussed the case with the resident. I agree with the resident's findings and plan as documented. SUBJECTIVE: OBJECTIVE: ASSESSMENT AND PLAN:
[2019-06-06] MEDS: ALBUTEROL SO4 2.5/IPRATROPIUM 0.5 INH SOL 3 ML VIAL.NEB. NEB SCH (20:41)
[2019-06-06] MEDS: ATORVASTATIN CA 10 MG TABLET (FP) PO SCH (21:13)
[2019-06-06] MEDS: AMITRIPTYLINE HCL 10 MG TABLET PO SCH (21:14)
[2019-06-07] MEDS: HEPARIN NA (PORCINE) 5,000 UNITS/ML 1ML VIAL SQ SCH ×3 (05:49→23:43)
[2019-06-07] MEDS: ALBUTEROL SO4 2.5/IPRATROPIUM 0.5 INH SOL 3 ML VIAL.NEB. NEB SCH ×4 (07:30→20:40)
[2019-06-07] MEDS ORDERED: cefTRIAXone SODIUM 1 GM VIAL ONE (08:29)
[2019-06-07] MEDS ORDERED: DEXTROSE 5%-WATER - 50 ML IVPB ONE (08:29)
[2019-06-07 09:16] LABS: BASO % 0.5 % (0-2.0); EOS % 2.5 % (0-4.5); HEMATOCRIT 38.3 % (32.4-45.2); HEMOGLOBIN 12.8 GM/dL (10.7-15.3); LYMPH % 16.1 % (8-40); MCH 30.2 pg (25.7-33.7); MCHC 33.6 g/dl (32.0-36.0); MEAN CELL VOLUME 90.1 fl (80-96); MEAN PLT VOLUME 8.7 fl (7.5-11.1); MONO % 17.7 % (3.8-10.2); NEUT % 63.2 % (42.8-82.8); PLATELET COUNT 225 K/MM3 (134-434); RBC 4.25 M/mm3 (3.60-5.2); RDW 13.7 % (11.6-15.6); WHITE BLOOD COUNT 5.7 K/mm3 (4.0-10.0)
[2019-06-07] MEDS: PANTOPRAZOLE 40 MG TABLET PO SCH (09:53)
[2019-06-07] MEDS: LOSARTAN POTASSIUM 50 MG TABLET (FP) PO SCH (09:53)
[2019-06-07] MEDS: amLODIPine BESYLATE 5 MG TABLET (FP) PO SCH (09:54)
[2019-06-07] MEDS: CEFTRIAXONE 1 GM in DEXTROSE 5%-WATER - 50 ML IVPB SCH (09:56)
[2019-06-07] MEDS ORDERED: IPRATROPIUM BR 0.02% 0.5 MG/2.5 ML VIAL.NEB. NEB ONE (10:42)
[2019-06-07] MEDS: AZITHROMYCIN IVPB 500 MG/250 ML BAG IVPB SCH (10:56)
[2019-06-07] MEDS: predniSONE 20 MG TABLET (UD) PO SCH (11:58)
--- NOTE | 2019-06-07 13:23 | DS ---
Physical Exam: SUBJECTIVE: Patient seen and examined. no acute events overnight. Patient states that she is feeling better. OBJECTIVE: Vital Signs Period Temp Pulse Resp BP Sys/[place] Pulse Ox Last 24 Hr 97.6 F-99.3 F 62-100 - 99-147/62-83 97 PHYSICAL EXAM GENERAL: The patient is awake, alert, and fully oriented, in no acute distress. HEAD: Normal with no signs of trauma. EYES: EOMI, no ptosis ENT: MMM NECK: Trachea midline, full range of motion, supple. LUNGS: mild end expiratory wheezing, no accessory muscle use. HEART: RRR, no murmur noted ABDOMEN: Soft, nontender, nondistended, normoactive bowel sounds, no guarding MSK: no spinal tenderness to palpation EXTREMITIES: 2+ pulses, warm, well-perfused, no edema. decreased range of motion of right knee due to pain/stiffness NEUROLOGICAL: Normal speech, gait not observed. No facial droop. Sensation intact throughout PSYCH: Normal mood, normal affect. 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 She presented to the ER with complaints of pain in her right knee along with paraspinal tenderness after a mechanical fall few a hours before presenting to the ER. Patient had xrays completed of her Hip/Pelvis/knee/tibia/fibula/ankle/ foot which were negative for fracture. A leg brace was placed on admission but after discussion with Dr. Novak, Orthopedics, brace was removed and patient encouraged to work on range of motion of right knee. Patient was seen by Dr. Novak who recommended that patient needs a knee replacement but patient states she does not want surgery at this time. Patient was only able to walk 25 ft. with a walker. Orthostatics were negative on admission. Patient was tachycardic and febrile so a CXR was performed which showed a RUL pneumonia. Patient started on Ceftriaxone and Azithromycin for CAP coverage with improvement. EKGs did not show evidence of ischemia or arrythmias. Patient to be discharged on PO Vantin BID for 4 more days and Azithromycin once daily for 2 more days. Started on Prednisone 40mg for 5 days total. Patient to continue Ipratropium nebs as needed for wheezing. Patient stable for discharge to SNF for continuing care and rehab. Home medications were continued appropriately while admitted. Minutes to complete discharge: 36 Discharge Summary Problems reviewed: Yes Reason For Visit: UNABLE TO WALK Condition: Improved - Instructions Diet, Activity, Other Instructions: You presented to the hospital for pain in your right knee after a fall. Xrays of your hip and leg did not show any signs of fracture. You were seen by Dr. Novak who stated that you need a knee replacement but you do not want surgery at this time. Dr. Novak also recommend physical therapy and rehab. You had an xray of chest completed which showed a pneumonia and you were stated on antibiotics with improvement. You are being discharged with continuing antibiotics. You are being discharged to [facility] for continuing care and rehab. Medication Changes: 1. Please take Ipratropium solution with your nebulizer up to three times daily as needed for wheezing as needed. If you are having worsening shortness of breath despite using the Ipratropium please contact your primary care doctor or return to the emergency department immediately. 2. Continue Prednisone 40mg once daily for 4 more days. 3. Continue Azithromycin 500mg once daily for 2 more days. 4. Start Vantin 200mg twice daily for 4 more days. Follow up with the following physicians: 1. Please follow up with your primary care provider, Dr. Mariano, within one week of discharge for further management of your medical conditions and to discuss the medications that were started while you were in the hospital. 2. Please follow up with Dr. Novak, Orthopedics, as needed for your knee pain. Dr. Novak recommended that you have a knee replacement but you stated that you would not like to pursue surgery at this time, if you change your mind we recommending following up with Dr. Novak for further management. Activity and Diet 1. Avoid trauma to your lower extremities. 2. Please monitor your diet as you need to intake foods with less salt and and fats and continue to drink plenty of fluids. 3. You are being discharged to short term nursing facility for continuing care and rehab. Continue all your other medications as prescribed Please return to the ER if you have any signs or symptoms of chest pain, shortness of breath, uncontrollable fever, chills, nausea, vomiting, numbness, tingling, or weakness in any part of your body, changes in vision, or slurred speech. Please return to the ER if symptoms persist, worsen, or new symptoms arise. Referrals: Edgar Novak MD [Staff Physician] - Michael Mariano MD [Primary Care Provider] - Disposition: [facility] - Home Medications Comprehensive Discharge Medication List: Ambulatory Orders Meclizine HCl [Antivert -] 12.5 mg PO TID PRN #30 tablet 05/30/17 Amlodipine Besylate 5 mg PO DAILY 10/12/17 Amitriptyline HCl [Elavil -] 10 mg PO HS tablet 10/18/17 Losartan Potassium 50 mg PO DAILY 03/08/18 Pantoprazole Sodium [Protonix -] 40 mg PO DAILY #60 tablet.ec 09/11/18 Potassium Chloride [Klor-Con M10] 10 meq PO DAILY 06/04/19 Azithromycin 500 mg PO DAILY #2 tablet 06/07/19 Cefpodoxime Proxetil [Vantin -] 200 mg PO Q12H 4 Days #8 tablet 06/07/19 Ipratropium 0.02% Nebulizer [Atrovent 0.02% Nebulizer -] 1 amp NEB RTID #1 box 06/07/19 Nebulizer Accessories [Adult Aerosol Mask] 1 each DAILY #1 each 06/07/19 Nebulizer Accessories [Air Filter] 1 each DAILY #1 each 06/07/19 Nebulizer Accessories [Filter Pad] 1 each DAILY #1 each 06/07/19 Nebulizer Accessories [Filters Replacement] 1 each DAILY #1 each 06/07/19 Nebulizer Accessories [Mask Set with Y-Piece] 1 each DAILY #1 each 06/07/19 Nebulizer Accessories [Nose Clip] 1 each DAILY #1 each 06/07/19 Nebulizer [Altera Nebulizer] 1 each DAILY #1 each 06/07/19 predniSONE [Deltasone -] 40 mg PO DAILY 4 Days #4 tablet 06/07/19 This patient is new to me today: No Emergency Visit: Yes ED Registration Date: 06/04/19 Care time: The patient presented to the Emergency Department on the above date and was hospitalized for further evaluation of their emergent condition. Critical Care patient: No - Discharge Referral Referred to [facility] Med [facility] No ATTENDING PHYSICIAN STATEMENT I saw and evaluated the patient. I reviewed the resident's note and discussed the case with the resident. I agree with the resident's findings and plan as documented. SUBJECTIVE: OBJECTIVE: ASSESSMENT AND PLAN:
--- NOTE | 2019-06-07 14:43 | PN ---
Teaching Attending Note Name of Resident: Isabel Parekh ATTENDING PHYSICIAN STATEMENT I saw and evaluated the patient. I reviewed the resident's note and discussed the case with the resident. I agree with the resident's findings and plan as documented. SUBJECTIVE: SOB improved. No CP/palpitations. No cough/sputum. No fever/chills. OBJECTIVE: Fever resolved. Hemodynamically Stable. Last Vital Signs Temp Pulse Resp BP Pulse Ox 98.6 F 98 H 23 H 115/75 93 L 06/07/19 09:00 06/07/19 09:00 06/07/19 09:00 06/07/19 09:00 06/07/19 09:00 Heart - S1, S2, RRR Lungs - good air entry bilaterally, occasional wheeze. Abdomen - Soft, non-tender. Bowel Sounds normal. Extremities - no edema, no calf tenderness. Laboratory Results - last 24 hr 06/07/19 07:05 WBC 5.7 RBC 4.25 Hgb 12.8 Hct 38.3 MCV 90.1 MCH 30.2 MCHC 33.6 RDW 13.7 Plt Count 225 MPV 8.7 Absolute Neuts (auto) 3.6 Neutrophils % 63.2 Lymphocytes % 16.1 D Monocytes % 17.7 H Eosinophils % 2.5 D Basophils % 0.5 Nucleated RBC % 0 Current Medications Generic Name Dose Route Start Last Admin Trade Name Freq PRN Reason Stop Dose Admin Acetaminophen 650 mg 06/05/19 14:53 06/06/19 06:58 Tylenol - PO 650 mg Q6H PRN Administration Fever Or Pain Albuterol/Ipratropium 1 amp 06/06/19 20:00 06/07/19 11:26 Duoneb - NEB 1 amp RQID SARAI Administration Amitriptyline HCl 10 mg 06/04/19 22:00 06/06/19 21:14 Elavil - PO 10 mg HS SARAI Administration Amlodipine Besylate 5 mg 06/04/19 10:00 06/07/19 09:54 Norvasc - PO 5 mg DAILY SARAI Administration Atorvastatin Calcium 10 mg 06/04/19 22:00 06/06/19 21:13 Lipitor - PO 10 mg HS SARAI Administration Heparin Sodium (Porcine) 5,000 unit 06/04/19 06:00 06/07/19 05:49 Heparin - SQ 5,000 unit TID SARAI Administration Azithromycin 500 mg in 250 mls @ 250 mls/hr 06/05/19 13:15 06/07/19 10:56 Zithromax 500mg Ivpb (Pre-Docked) IVPB 250 mls/hr DAILY SARAI Administration Ceftriaxone Sodium 1 gm/ 50 mls @ 100 mls/hr 06/05/19 13:15 06/07/19 09:56 Dextrose IVPB 100 mls/hr DAILY SARAI Administration Losartan Potassium 50 mg 06/04/19 10:00 06/07/19 09:53 Cozaar - PO 50 mg DAILY SARAI Administration Meclizine HCl 12.5 mg 06/04/19 06:06 Antivert - PO TID PRN VERTIGO Pantoprazole Sodium 40 mg 06/04/19 10:00 06/07/19 09:53 Protonix - PO 40 mg DAILY SARAI Administration Prednisone 40 mg 06/07/19 10:45 06/07/19 11:58 Deltasone - PO 40 mg DAILY SARAI Administration Home Medications Medication Instructions Recorded Meclizine HCl [Antivert -] 12.5 mg PO TID PRN #30 tablet 05/30/17 Amlodipine Besylate 5 mg PO DAILY 10/12/17 Amitriptyline HCl [Elavil -] 10 mg PO HS tablet 10/18/17 Losartan Potassium 50 mg PO DAILY 03/08/18 Pantoprazole Sodium [Protonix -] 40 mg PO DAILY #60 tablet.ec 09/11/18 Potassium Chloride [Klor-Con M10] 10 meq PO DAILY 06/04/19 Azithromycin 500 mg PO DAILY #2 tablet 06/07/19 Cefpodoxime Proxetil [Vantin -] 200 mg PO Q12H 4 Days #8 tablet 06/07/19 Ipratropium 0.02% Nebulizer 1 amp NEB RTID #1 box 06/07/19 [Atrovent 0.02% Nebulizer -] Nebulizer Accessories [Adult 1 each MC DAILY #1 each 06/07/19 Aerosol Mask] Nebulizer Accessories [Air Filter] 1 each MC DAILY #1 each 06/07/19 Nebulizer Accessories [Filter Pad] 1 each MC DAILY #1 each 06/07/19 Nebulizer Accessories [Filters 1 each MC DAILY #1 each 06/07/19 Replacement] Nebulizer Accessories [Mask Set 1 each MC DAILY #1 each 06/07/19 with Y-Piece] Nebulizer Accessories [Nose Clip] 1 each MC DAILY #1 each 06/07/19 Nebulizer [Altera Nebulizer] 1 each MC DAILY #1 each 06/07/19 predniSONE [Deltasone -] 40 mg PO DAILY 4 Days #4 tablet 06/07/19 ASSESSMENT AND PLAN: 83 year old female with history of R colon AVM, s/p multiple transfusions for anemia, GERD, Diverticulosis, HTN, Asthma, mobilizes with walker presents status post fall on 06/03/2019, hitting her right knee. No preceding CP/ palpitations/lightheadedness. No HI or LOC. Now febrile, tachycardic, with RUL consolidation on CXR. 1. Sepsis secondary to Community Acquired Pneumonia - sepsis resolved. CXR - RUL infiltrate. Intermittent fever, tachycardia resolved. IV Ceftriaxone/Azithromycin to transition to oral cephalosporin/azithromycin. Continue Ipratropium Nebs. Medically stable for transfer to SNF/Rehab. 2. HTN - continue Losartan, Norvasc. 3. OA R knee - acute exacerbation sec to mechanical fall. No fracture/ dislocation. Eval by Ortho - recommendations appreciated. No need for knee immobilizer. PT 4. HLD - Continue Statin. 5. Hypokalemia - resolved s/p repletion. 6. GERD - Continue PPI Sepsis resolved. Afebrile, medically optimized for transfer for ongoing PT/Rehab /oral antibiotics at SNF.
[2019-06-07] MEDS ORDERED: CEFPODOXIME PROXETIL 100 MG TABLET PO SCH (22:00)
[2019-06-07] MEDS: AMITRIPTYLINE HCL 10 MG TABLET PO SCH (23:42)
[2019-06-07] MEDS: CEFPODOXIME PROXETIL 200 MG TABLET [NF] PO SCH (23:42)
[2019-06-07] MEDS: ATORVASTATIN CA 10 MG TABLET (FP) PO SCH (23:42)
[2019-06-08] MEDS: HEPARIN NA (PORCINE) 5,000 UNITS/ML 1ML VIAL SQ SCH (05:41)
[2019-06-08] MEDS: ALBUTEROL SO4 2.5/IPRATROPIUM 0.5 INH SOL 3 ML VIAL.NEB. NEB SCH (08:15)
[2019-06-08 08:25] VITALS: BP 109/68; PULSE 75; TEMP 97.6
[2019-06-08] MEDS: amLODIPine BESYLATE 5 MG TABLET (FP) PO SCH (09:10)
[2019-06-08] MEDS: CEFPODOXIME PROXETIL 200 MG TABLET [NF] PO SCH (09:10)
[2019-06-08] MEDS: PANTOPRAZOLE 40 MG TABLET PO SCH (09:10)
[2019-06-08] MEDS: predniSONE 20 MG TABLET (UD) PO SCH (09:10)
[2019-06-08] MEDS: LOSARTAN POTASSIUM 50 MG TABLET (FP) PO SCH (09:11)
[2019-06-08] MEDS ORDERED: AZITHROMYCIN 250 MG TABLET PO SCH (10:00)
--- NOTE | 2019-06-08 13:18 | PN ---
Teaching Attending Note Name of Resident: Isabel Parekh ATTENDING PHYSICIAN STATEMENT I saw and evaluated the patient. I reviewed the resident's note and discussed the case with the resident. I agree with the resident's findings and plan as documented. SUBJECTIVE: SOB improved. No CP/palpitations. No cough/sputum. No fever/chills. OBJECTIVE: Fever resolved. Hemodynamically Stable. Last Vital Signs Temp Pulse Resp BP Pulse Ox 97.6 F 75 22 H 109/68 94 L on RA 06/08/19 08:00 06/08/19 08:00 06/08/19 08:21 06/08/19 08:00 06/08/19 08:21 Heart - S1, S2, RRR Lungs - good air entry bilaterally, wheeze resolved. Abdomen - Soft, non-tender. Bowel Sounds normal. Extremities - no edema, no calf tenderness. Laboratory Tests 06/03/19 06/03/19 06/03/19 20:25 20:25 22:47 WBC 8.0 RBC 5.01 Hgb 15.2 Hct 46.2 H D MCV 92.1 MCH 30.4 D MCHC 33.0 RDW 13.2 D Plt Count 309 MPV 8.9 D Absolute Neuts (auto) 6.0 Neutrophils % 74.5 D Lymphocytes % 13.1 D Monocytes % 11.8 H Eosinophils % 0.2 D Basophils % 0.4 Nucleated RBC % 0 Sodium 134 L Potassium 4.0 Chloride 99 Carbon Dioxide 25 Anion Gap 10 BUN 11.2 Creatinine 0.7 Est GFR (CKD-EPI)AfAm 92.21 Est GFR (CKD-EPI)NonAf 79.56 Random Glucose 111 H Calcium 9.7 Magnesium Total Bilirubin 0.5 AST 30 ALT 40 Alkaline Phosphatase 105 Total Protein 8.1 Albumin 4.0 Urine Color Yellow Urine Appearance Clear Urine pH 6.0 Ur Specific [place] 1.020 Urine Protein 1+ H Urine Glucose (UA) Negative Urine Ketones Trace Urine Blood Trace-lysed Urine Nitrite Negative Urine Bilirubin Negative Urine Urobilinogen 2.0 H Ur Leukocyte Esterase Negative Urine WBC (Auto) 0.6 Urine RBC (Auto) 2.3 Urine Casts (Auto) 0.73 U Epithel Cells (Auto) 2.0 Urine Bacteria (Auto) 2.9 Influenza A (Rapid) Influenza B (Rapid) 06/04/19 06/05/19 06/05/19 09:55 07:45 07:45 WBC 8.1 RBC 4.77 Hgb 14.4 Hct 42.9 MCV 90.0 MCH 30.3 MCHC 33.7 RDW 13.4 Plt Count 238 D MPV 8.2 Absolute Neuts (auto) Neutrophils % Lymphocytes % Monocytes % Eosinophils % Basophils % Nucleated RBC % Sodium 134 L 133 L Potassium 3.2 L 4.1 Chloride 102 101 Carbon Dioxide 24 23 Anion Gap 8 9 BUN 7.7 7.7 Creatinine 0.6 0.5 L Est GFR (CKD-EPI)AfAm 97.01 103.01 Est GFR (CKD-EPI)NonAf 83.70 88.88 Random Glucose 122 H 101 Calcium 8.7 8.8 Magnesium 2.0 Total Bilirubin 0.4 AST 21 ALT 36 Alkaline Phosphatase 92 Total Protein 6.9 Albumin 3.4 Urine Color Urine Appearance Urine pH Ur Specific [place] Urine Protein Urine Glucose (UA) Urine Ketones Urine Blood Urine Nitrite Urine Bilirubin Urine Urobilinogen Ur Leukocyte Esterase Urine WBC (Auto) Urine RBC (Auto) Urine Casts (Auto) U Epithel Cells (Auto) Urine Bacteria (Auto) Influenza A (Rapid) Influenza B (Rapid) 06/05/19 06/06/19 06/06/19 15:25 07:20 07:20 WBC 7.1 RBC 4.38 Hgb 13.3 Hct 39.2 MCV 89.5 MCH 30.3 MCHC 33.8 RDW 13.7 Plt Count 241 MPV 8.6 Absolute Neuts (auto) Neutrophils % Lymphocytes % Monocytes % Eosinophils % Basophils % Nucleated RBC % Sodium 131 L Potassium 4.0 Chloride 99 Carbon Dioxide 23 Anion Gap 10 BUN 11.1 Creatinine 0.7 Est GFR (CKD-EPI)AfAm 92.21 Est GFR (CKD-EPI)NonAf 79.56 Random Glucose 112 H Calcium 8.5 Magnesium 1.9 Total Bilirubin AST ALT Alkaline Phosphatase Total Protein Albumin Urine Color Urine Appearance Urine pH Ur Specific [place] Urine Protein Urine Glucose (UA) Urine Ketones Urine Blood Urine Nitrite Urine Bilirubin Urine Urobilinogen Ur Leukocyte Esterase Urine WBC (Auto) Urine RBC (Auto) Urine Casts (Auto) U Epithel Cells (Auto) Urine Bacteria (Auto) Influenza A (Rapid) Negative Influenza B (Rapid) Negative 06/07/19 07:05 WBC 5.7 RBC 4.25 Hgb 12.8 Hct 38.3 MCV 90.1 MCH 30.2 MCHC 33.6 RDW 13.7 Plt Count 225 MPV 8.7 Absolute Neuts (auto) 3.6 Neutrophils % 63.2 Lymphocytes % 16.1 D Monocytes % 17.7 H Eosinophils % 2.5 D Basophils % 0.5 Nucleated RBC % 0 Sodium Potassium Chloride Carbon Dioxide Anion Gap BUN Creatinine Est GFR (CKD-EPI)AfAm Est GFR (CKD-EPI)NonAf Random Glucose Calcium Magnesium Total Bilirubin AST ALT Alkaline Phosphatase Total Protein Albumin Urine Color Urine Appearance Urine pH Ur Specific [place] Urine Protein Urine Glucose (UA) Urine Ketones Urine Blood Urine Nitrite Urine Bilirubin Urine Urobilinogen Ur Leukocyte Esterase Urine WBC (Auto) Urine RBC (Auto) Urine Casts (Auto) U Epithel Cells (Auto) Urine Bacteria (Auto) Influenza A (Rapid) Influenza B (Rapid) Discharge Medications Medication Instructions Recorded Meclizine HCl [Antivert -] 12.5 mg PO TID PRN #30 tablet 05/30/17 Amlodipine Besylate 5 mg PO DAILY 10/12/17 Amitriptyline HCl [Elavil -] 10 mg PO HS tablet 10/18/17 Losartan Potassium 50 mg PO DAILY 03/08/18 Pantoprazole Sodium [Protonix -] 40 mg PO DAILY #60 tablet.ec 09/11/18 Potassium Chloride [Klor-Con M10] 10 meq PO DAILY 06/04/19 Azithromycin 500 mg PO DAILY #2 tablet 06/07/19 Cefpodoxime Proxetil [Vantin -] 200 mg PO Q12H 4 Days #8 tablet 06/07/19 Ipratropium 0.02% Nebulizer 1 amp NEB TID PRN #1 box 06/07/19 [Atrovent 0.02% Nebulizer -] Nebulizer Accessories [Adult 1 each MC DAILY #1 each 06/07/19 Aerosol Mask] Nebulizer Accessories [Air Filter] 1 each DAILY #1 each 06/07/19 Nebulizer Accessories [Filter Pad] 1 each DAILY #1 each 06/07/19 Nebulizer Accessories [Filters 1 each DAILY #1 each 06/07/19 Replacement] Nebulizer Accessories [Mask Set 1 each DAILY #1 each 06/07/19 with Y-Piece] Nebulizer Accessories [Nose Clip] 1 each DAILY #1 each 06/07/19 Nebulizer [Altera Nebulizer] 1 each MC DAILY #1 each 06/07/19 predniSONE [Deltasone -] 40 mg PO DAILY 4 Days #4 tablet 06/07/19 ASSESSMENT AND PLAN: 83 year old female with history of R colon AVM, s/p multiple transfusions for anemia, GERD, Diverticulosis, HTN, Asthma, mobilizes with walker presents status post fall on 06/03/2019, hitting her right knee. No preceding CP/ palpitations/lightheadedness. No HI or LOC. Now febrile, tachycardic, with RUL consolidation on CXR. 1. Sepsis secondary to Community Acquired Pneumonia - sepsis resolved. CXR - RUL infiltrate. Intermittent fever, tachycardia resolved. IV Ceftriaxone/Azithromycin to transition to oral cephalosporin/azithromycin - to complete course as out-patient. Continue Ipratropium Nebs. Medically stable for transfer to SNF/Rehab. 2. HTN - continue Losartan, Norvasc. 3. OA R knee - acute exacerbation sec to mechanical fall. No fracture/ dislocation. Eval by Ortho - recommendations appreciated. No need for knee immobilizer. PT 4. HLD - Continue Statin. 5. Hypokalemia - resolved s/p repletion. 6. GERD - Continue PPI Sepsis resolved. Afebrile, medically optimized for transfer for ongoing PT/Rehab /oral antibiotics at SNF.
== END 2019-06-08 10:48 | DRG 871 ==
LOC: JER 18:15 → JERBED 06-04 02:48 → J5S 06-04 19:10
PROVIDERS: ADMIT Internal Medicine
DX: A41.9 Sepsis, unspecified organism (principal); J18.9 Pneumonia, unspecified organism; M17.11 Unilateral primary osteoarthritis, right knee; A41.89 Other specified sepsis; D64.9 Anemia, unspecified; I10 Essential (primary) hypertension; E78.5 Hyperlipidemia, unspecified; K21.9 Gastro-esophageal reflux disease without esophagitis; K57.90 Diverticulosis of intestine, part unspecified, without perforation or abscess without bleeding; R00.0 Tachycardia, unspecified; R50.9 Fever, unspecified; E87.6 Hypokalemia; B19.20 Unspecified viral hepatitis C without hepatic coma; W18.39XA Other fall on same level, initial encounter; Y92.89 Other specified places as the place of occurrence of the external cause
CPT/HCPCS: 36415; 71045-TC-FY; 72170-TC-FY; 73552-TC-RT-FY; 73562-TC-RT-FY; 73590-TC-RT-FY; 73610-TC-RT-FY; 73630-TC-RT-FY; 80048; 80053; 81003; 83735; 85025; 85027; 87086; 87804; 87899; 93005; 93010; 94640; 97116-GP; 97162-GP; 99285-25; J0131; J1644; J7030

== ENCOUNTER 2023-02-11 01:53 | Observation (INO) | payer OTHER, MEDICARE ==
[2023-02-11 02:06] VITALS: BMI 26.5
[2023-02-11 03:15] LABS: BASO % 1.4 % (0-2.0); HEMATOCRIT 18.4 % (32.4-45.2); LYMPH % 21.3 % (8-40); MCHC 29.2 g/dl (32.0-36.0); MEAN CELL VOLUME 60.8 fl (80-96); MEAN PLT VOLUME 7.6 fl (7.5-11.1); MONO % 14.4 % (3.8-10.2); NEUT % 60.9 % (42.8-82.8); PLATELET COUNT 584 10^3/uL (134-434); RBC 3.02 M/mm3 (3.60-5.2); RDW 22.5 % (11.6-15.6); WHITE BLOOD COUNT 8.2 K/mm3 (4.0-10.0)
[2023-02-11 03:16] LABS: MCH 17.8 pg (25.7-33.7)
[2023-02-11 03:17] LABS: HEMOGLOBIN 5.4 GM/dL (10.7-15.3)
[2023-02-11 03:33] LABS: POTASSIUM 4.4 mmol/L (3.5-5.1)
[2023-02-11 03:35] LABS: CALCIUM 8.5 mg/dL (8.5-10.1)
[2023-02-11 03:36] LABS: ALBUMIN 3.2 g/dl (3.4-5.0); BLOOD UREA NITROGEN 13.8 mg/dL (7-18)
[2023-02-11 03:39] LABS: CREATININE 0.7 mg/dL (0.55-1.3)
[2023-02-11 03:41] LABS: BILIRUBIN,TOTAL 0.3 mg/dL (0.2-1); TOT PROT 6.5 g/dl (6.4-8.2)
[2023-02-11 03:59] LABS: ANISOCYTOSIS 1+; ROULEAU 1+
[2023-02-11 08:28] LABS: INR 1.15 (0.83-1.09); PROTHROMBIN TIME (PATIENT) 13.3 SEC (9.7-13.0)
[2023-02-11 08:31] LABS: ACTIVATED PTT 26.4 SECONDS (25.2-36.5)
[2023-02-11 11:35] VITALS: TEMP 97.2
[2023-02-11 13:48] LABS: BASO % 0.9 % (0-2.0); EOS % 2.2 % (0-4.5); HEMATOCRIT 28.4 % (32.4-45.2); HEMOGLOBIN 8.6 GM/dL (10.7-15.3); LYMPH % 16.8 % (8-40); MCH 20.8 pg (25.7-33.7); MCHC 30.4 g/dl (32.0-36.0); MEAN PLT VOLUME 7.6 fl (7.5-11.1); MONO % 12.5 % (3.8-10.2); NEUT % 67.6 % (42.8-82.8); PLATELET COUNT 558 10^3/uL (134-434); RBC 4.15 M/mm3 (3.60-5.2); RDW 24.4 % (11.6-15.6); WHITE BLOOD COUNT 7.5 K/mm3 (4.0-10.0)
[2023-02-11 13:56] LABS: MEAN CELL VOLUME 68.6 fl (80-96)
[2023-02-12 03:28] VITALS: BP 144/74; PULSE 71; RESP 15
== END 2023-02-12 05:00 ==
LOC: JER 01:53 → JERBED 09:35
PROVIDERS: ADMIT Internal Medicine; ATTEND Internal Medicine
PROC: 30233N1 Transfusion of Nonautologous Red Blood Cells into Peripheral Vein, Percutaneous Approach (ICD-10-PCS; principal; 2023-02-11)
DX: D64.9 Anemia, unspecified (principal); I25.10 Atherosclerotic heart disease of native coronary artery without angina pectoris; I11.9 Hypertensive heart disease without heart failure; E78.5 Hyperlipidemia, unspecified; J45.909 Unspecified asthma, uncomplicated; K92.2 Gastrointestinal hemorrhage, unspecified; K74.60 Unspecified cirrhosis of liver; Z85.850 Personal history of malignant neoplasm of thyroid; B19.20 Unspecified viral hepatitis C without hepatic coma; Z90.49 Acquired absence of other specified parts of digestive tract; Z88.0 Allergy status to penicillin; Z88.5 Allergy status to narcotic agent
CPT/HCPCS: 36415; 36430; 80053; 82272; 85025; 85610; 85730; 86850; 86900; 86901; 86922; 93005; 93010; 99285-25; G0378; P9058

== ENCOUNTER 2023-03-13 16:26 | Inpatient (IN) | payer OTHER, MEDICARE ==
[2023-03-13 17:59] LABS: BASO % 0.4 % (0-2.0); EOS % 3.1 % (0-4.5); HEMATOCRIT 29.9 % (32.4-45.2); HEMOGLOBIN 9.3 GM/dL (10.7-15.3); LYMPH % 15.2 % (8-40); MEAN CELL VOLUME 67.6 fl (80-96); MEAN PLT VOLUME 8.3 fl (7.5-11.1); MONO % 12.2 % (3.8-10.2); NEUT % 69.1 % (42.8-82.8); PLATELET COUNT 545 10^3/uL (134-434); RBC 4.43 M/mm3 (3.60-5.2); RDW 27.4 % (11.6-15.6); WHITE BLOOD COUNT 9.2 K/mm3 (4.0-10.0)
[2023-03-13 18:07] LABS: INR 1.13 (0.83-1.09); PROTHROMBIN TIME (PATIENT) 13.1 SEC (9.7-13.0)
[2023-03-13 18:09] LABS: ACTIVATED PTT 27.6 SECONDS (25.2-36.5)
[2023-03-13 18:15] LABS: POTASSIUM 5.1 mmol/L (3.5-5.1)
[2023-03-13 18:17] LABS: CALCIUM 8.5 mg/dL (8.5-10.1)
[2023-03-13 18:18] LABS: BLOOD UREA NITROGEN 12.5 mg/dL (7-18)
[2023-03-13 18:21] LABS: CREATININE 0.8 mg/dL (0.55-1.3)
[2023-03-13 18:22] LABS: BILIRUBIN,TOTAL 0.5 mg/dL (0.2-1); TOT PROT 6.8 g/dl (6.4-8.2)
[2023-03-13 19:32] LABS: ANISOCYTOSIS 3+; MACROCYTOSIS 1+
[2023-03-13 19:37] LABS: OVALOCYTE 1+
[2023-03-13] MEDS: SODIUM CHLORIDE 1,000 ML IV SCH (22:23)
[2023-03-13] MEDS: ENOXAPARIN NA (PORCINE) 40 MG/0.4 ML DISP.SYRIN SQ SCH (22:23)
[2023-03-13] MEDS ORDERED: ENOXAPARIN NA (PORCINE) 40 MG/0.4 ML DISP.SYRIN SQ ONE (22:24)
[2023-03-13 22:49] LABS: EPI CELLS 18 /uL (0-25.1); HYALINE CASTS 0 /uL (0-3.1); URINE APPEARANCE CLOUDY; URINE BACTERIA >9,000 /uL (0-1359); URINE BILIRUBIN NEGATIVE (NEGATIVE); URINE COLOR YELLOW; URINE GLUCOSE (UA) NEGATIVE (NEGATIVE); URINE KETONE TRACE (NEGATIVE); URINE LEUK ESTERASE 3+ (NEGATIVE); URINE NITRITE NEGATIVE (NEGATIVE); URINE PROTEIN NEGATIVE (NEGATIVE); URINE RBC 35 /uL (0-23.9); URINE WBC 3045 /uL (0-25.8)
[2023-03-14] MEDS ORDERED: CEFTRIAXONE 1 GM/50 ML BAG ONE (00:55)
[2023-03-14 08:31] LABS: HEMATOCRIT 29.6 % (32.4-45.2); HEMOGLOBIN 9.5 GM/dL (10.7-15.3); MCH 21.8 pg (25.7-33.7); MCHC 32.2 g/dl (32.0-36.0); MEAN CELL VOLUME 67.7 fl (80-96); MEAN PLT VOLUME 8.4 fl (7.5-11.1); PLATELET COUNT 500 10^3/uL (134-434); RBC 4.37 M/mm3 (3.60-5.2); RDW 26.4 % (11.6-15.6); WHITE BLOOD COUNT 7.8 K/mm3 (4.0-10.0)
[2023-03-14 08:49] LABS: POTASSIUM 3.5 mmol/L (3.5-5.1)
[2023-03-14 08:56] LABS: CALCIUM 8.5 mg/dL (8.5-10.1)
[2023-03-14 08:58] LABS: CREATININE 0.6 mg/dL (0.55-1.3)
[2023-03-14] MEDS: amLODIPine BESYLATE 5 MG TABLET (FP) PO SCH (13:00)
[2023-03-14] MEDS: LOSARTAN POTASSIUM 50 MG TABLET PO SCH (13:00)
[2023-03-14] MEDS: ENOXAPARIN NA (PORCINE) 40 MG/0.4 ML DISP.SYRIN SQ SCH (13:37)
[2023-03-14] MEDS: SODIUM CHLORIDE 1,000 ML IV SCH (21:49)
[2023-03-14] MEDS ORDERED: AMITRIPTYLINE HCL 10 MG TABLET PO SCH (22:00)
[2023-03-15 00:26] VITALS: BMI 29.1
[2023-03-15] MEDS: SODIUM CHLORIDE 1,000 ML IV SCH ×2 (01:18→22:14)
[2023-03-15 08:15] LABS: POTASSIUM 3.4 mmol/L (3.5-5.1)
[2023-03-15 08:24] LABS: CALCIUM 8.7 mg/dL (8.5-10.1)
[2023-03-15 08:25] LABS: ALBUMIN 3.2 g/dl (3.4-5.0)
[2023-03-15 08:27] LABS: CREATININE 0.5 mg/dL (0.55-1.3)
[2023-03-15 08:28] LABS: BILIRUBIN,TOTAL 0.6 mg/dL (0.2-1); TOT PROT 6.8 g/dl (6.4-8.2)
[2023-03-15 09:02] LABS: BASO % 0.5 % (0-2.0); EOS % 3.8 % (0-4.5); HEMATOCRIT 32.8 % (32.4-45.2); HEMOGLOBIN 10.1 GM/dL (10.7-15.3); LYMPH % 12.1 % (8-40); MCHC 30.9 g/dl (32.0-36.0); MEAN CELL VOLUME 67.9 fl (80-96); MEAN PLT VOLUME 8.1 fl (7.5-11.1); NEUT % 67.6 % (42.8-82.8); PLATELET COUNT 482 10^3/uL (134-434); RBC 4.84 M/mm3 (3.60-5.2); RDW 27.1 % (11.6-15.6); WHITE BLOOD COUNT 6.1 K/mm3 (4.0-10.0)
[2023-03-15] MEDS ORDERED: CEFTRIAXONE 1 GM in DEXTROSE 5%-WATER - 50 ML IVPB SCH (10:00)
[2023-03-15] MEDS ORDERED: levETIRAcetam 500 MG TABLET (FP) PO SCH (10:00)
[2023-03-15] MEDS ORDERED: MECLIZINE HCL 12.5 MG TABLET PO PRN ×2 (10:16→10:20)
[2023-03-15] MEDS: amLODIPine BESYLATE 5 MG TABLET (FP) PO SCH (10:40)
[2023-03-15] MEDS: ENOXAPARIN NA (PORCINE) 40 MG/0.4 ML DISP.SYRIN SQ SCH (10:40)
[2023-03-15] MEDS: LOSARTAN POTASSIUM 50 MG TABLET PO SCH (10:40)
[2023-03-15] MEDS ORDERED: POTASSIUM CHLORIDE TABS 20 MEQ TABLET.ER (FP) PO ONE (10:45)
[2023-03-15] MEDS: MECLIZINE HCL 12.5 MG TABLET PO SCH ×3 (10:57→22:13)
[2023-03-15 15:23] LABS: N-TERMINAL BNP 150.4 pg/ml (5-450)
[2023-03-15] MEDS: levETIRAcetam 500 MG TABLET (FP) PO SCH (22:13)
[2023-03-15] MEDS: AMITRIPTYLINE HCL 10 MG TABLET PO SCH (22:14)
[2023-03-16] MEDS: MECLIZINE HCL 12.5 MG TABLET PO SCH ×3 (05:47→22:29)
[2023-03-16] MEDS ORDERED: CEFTRIAXONE 1 GM in DEXTROSE 5%-WATER - 50 ML IVPB SCH (10:00)
[2023-03-16] MEDS ORDERED: METOPROLOL TARTRATE 25 MG TABLET (FP) PO SCH (10:00)
[2023-03-16 10:01] LABS: BASO % 0.7 % (0-2.0); EOS % 4.5 % (0-4.5); HEMATOCRIT 32.4 % (32.4-45.2); HEMOGLOBIN 9.8 GM/dL (10.7-15.3); LYMPH % 23.1 % (8-40); MCH 21.1 pg (25.7-33.7); MCHC 30.4 g/dl (32.0-36.0); MEAN CELL VOLUME 69.2 fl (80-96); MEAN PLT VOLUME 8.2 fl (7.5-11.1); MONO % 16.9 % (3.8-10.2); NEUT % 54.8 % (42.8-82.8); PLATELET COUNT 481 10^3/uL (134-434); RBC 4.68 M/mm3 (3.60-5.2); RDW 27.3 % (11.6-15.6); WHITE BLOOD COUNT 5.3 K/mm3 (4.0-10.0)
[2023-03-16 10:39] LABS: POTASSIUM 3.6 mmol/L (3.5-5.1)
[2023-03-16 10:54] LABS: PHOSPHOROUS 2.8 mg/dL (2.5-4.9)
[2023-03-16 10:55] LABS: ALBUMIN 3.2 g/dl (3.4-5.0); BILIRUBIN,TOTAL 0.4 mg/dL (0.2-1); BLOOD UREA NITROGEN 9.8 mg/dL (7-18); TOT PROT 6.9 g/dl (6.4-8.2)
[2023-03-16 10:58] LABS: CREATININE 0.5 mg/dL (0.55-1.3)
[2023-03-16] MEDS: levETIRAcetam 500 MG TABLET (FP) PO SCH ×2 (11:00→22:29)
[2023-03-16 11:16] LABS: CALCIUM 8.5 mg/dL (8.5-10.1)
[2023-03-16] MEDS: ENOXAPARIN NA (PORCINE) 40 MG/0.4 ML DISP.SYRIN SQ SCH (12:10)
[2023-03-16] MEDS: LOSARTAN POTASSIUM 25 MG TABLET PO SCH (12:11)
[2023-03-16] MEDS: CEFTRIAXONE 1 GM in DEXTROSE 5%-WATER - 50 ML IVPB SCH (12:23)
[2023-03-16] MEDS ORDERED: POTASSIUM CHLORIDE ORAL LIQUID 20 MEQ/15 ML PO ONE ×2 (18:57→22:30)
[2023-03-16] MEDS: SODIUM CHLORIDE 1,000 ML IV SCH (22:29)
[2023-03-16] MEDS: AMITRIPTYLINE HCL 10 MG TABLET PO SCH (22:29)
[2023-03-16] MEDS: METOPROLOL TARTRATE 25 MG TABLET (FP) PO SCH (22:29)
[2023-03-17] MEDS: MECLIZINE HCL 12.5 MG TABLET PO SCH ×2 (06:03→13:22)
[2023-03-17 09:42] LABS: HEMOGLOBIN 8.7 GM/dL (10.7-15.3); MCH 21.4 pg (25.7-33.7); MCHC 31.2 g/dl (32.0-36.0); MEAN CELL VOLUME 68.6 fl (80-96); MEAN PLT VOLUME 8.9 fl (7.5-11.1); PLATELET COUNT 395 10^3/uL (134-434); RBC 4.09 M/mm3 (3.60-5.2); RDW 26.3 % (11.6-15.6); WHITE BLOOD COUNT 5.1 K/mm3 (4.0-10.0)
[2023-03-17 09:52] LABS: POTASSIUM 4.1 mmol/L (3.5-5.1)
[2023-03-17] MEDS: SODIUM CHLORIDE 1,000 ML IV SCH (09:58)
[2023-03-17] MEDS: CEFTRIAXONE 1 GM in DEXTROSE 5%-WATER - 50 ML IVPB SCH (09:59)
[2023-03-17] MEDS: LOSARTAN POTASSIUM 25 MG TABLET PO SCH (09:59)
[2023-03-17] MEDS: METOPROLOL TARTRATE 25 MG TABLET (FP) PO SCH (09:59)
[2023-03-17] MEDS: levETIRAcetam 500 MG TABLET (FP) PO SCH (09:59)
[2023-03-17] MEDS: ENOXAPARIN NA (PORCINE) 40 MG/0.4 ML DISP.SYRIN SQ SCH (10:00)
[2023-03-17 10:15] LABS: CALCIUM 8.4 mg/dL (8.5-10.1)
[2023-03-17 10:16] LABS: BLOOD UREA NITROGEN 8.9 mg/dL (7-18)
[2023-03-17 10:19] LABS: CREATININE 0.5 mg/dL (0.55-1.3); PHOSPHOROUS 2.6 mg/dL (2.5-4.9)
[2023-03-17] MEDS ORDERED: ALBUTEROL SULFATE 0.021% (0.63 MG/3 ML) VIAL.NEB NEB PRN (12:13)
[2023-03-17 12:32] VITALS: RESP 17
[2023-03-17 13:16] VITALS: BP 109/68; PULSE 82; TEMP 97.7
== END 2023-03-17 18:35 | DRG 149 ==
LOC: JER 16:26 → JERBED 20:57 → OBSVTOIN 21:25 → J4W 03-14 23:40 → J7W 03-15 19:06
PROVIDERS: ADMIT Internal Medicine; ATTEND Internal Medicine
DX: R42 Dizziness and giddiness (principal); N39.0 Urinary tract infection, site not specified; J90 Pleural effusion, not elsewhere classified; B96.20 Unspecified Escherichia coli [E. coli] as the cause of diseases classified elsewhere; K21.9 Gastro-esophageal reflux disease without esophagitis; I10 Essential (primary) hypertension; E78.5 Hyperlipidemia, unspecified; B18.2 Chronic viral hepatitis C; J45.909 Unspecified asthma, uncomplicated; D50.9 Iron deficiency anemia, unspecified
CPT/HCPCS: 0241U-QW; 36415; 70450-TC; 71045-TC-FY; 80048; 80053; 80061; 81003; 82607; 83036; 83735; 83880; 84100; 84443; 84484; 85025; 85027; 85610; 85730; 86780; 86850; 86900; 86901; 87086; 87186; 93005; 93010; 93306-TC; 93880-TC; 97116-GP; 97161-GP; 99285-25; G0378

== ENCOUNTER 2023-03-23 23:58 | Inpatient (IN) | payer OTHER, MEDICARE ==
[2023-03-24 01:51] LABS: BASO % 0.8 % (0-2.0); EOS % 3.1 % (0-4.5); HEMATOCRIT 19.3 % (32.4-45.2); LYMPH % 22.8 % (8-40); MCH 22.7 pg (25.7-33.7); MCHC 30.4 g/dl (32.0-36.0); MEAN CELL VOLUME 74.4 fl (80-96); MEAN PLT VOLUME 8.2 fl (7.5-11.1); MONO % 11.9 % (3.8-10.2); NEUT % 61.4 % (42.8-82.8); PLATELET COUNT 477 10^3/uL (134-434); RDW 31.2 % (11.6-15.6); WHITE BLOOD COUNT 8.2 K/mm3 (4.0-10.0)
[2023-03-24 01:58] LABS: HEMOGLOBIN 5.9 GM/dL (10.7-15.3)
[2023-03-24 02:01] LABS: INR 1.16 (0.83-1.09); PROTHROMBIN TIME (PATIENT) 13.4 SEC (9.7-13.0)
[2023-03-24 02:38] LABS: POTASSIUM 3.7 mmol/L (3.5-5.1)
[2023-03-24 02:40] LABS: CALCIUM 8.5 mg/dL (8.5-10.1)
[2023-03-24 02:41] LABS: BLOOD UREA NITROGEN 10.7 mg/dL (7-18)
[2023-03-24 02:44] LABS: CREATININE 0.7 mg/dL (0.55-1.3)
[2023-03-24 02:45] LABS: BILIRUBIN,TOTAL 0.5 mg/dL (0.2-1); TOT PROT 6.1 g/dl (6.4-8.2)
[2023-03-24] MEDS ORDERED: SENNOSIDES 8.6MG TABLET (FP) PO PRN (05:00)
[2023-03-24] MEDS ORDERED: IPRATROPIUM BR 0.02% 0.5 MG/2.5 ML VIAL.NEB. NEB PRN (05:00)
[2023-03-24] MEDS ORDERED: MELATONIN 1 MG TABLET PO PRN (05:09)
[2023-03-24] MEDS ORDERED: ACETAMINOPHEN 325 MG TABLET (FP) PO PRN (05:09)
[2023-03-24] MEDS: levETIRAcetam 500 MG TABLET (FP) PO SCH ×3 (09:26→21:12)
[2023-03-24] MEDS: FAMOTIDINE 20 MG TABLET PO SCH ×2 (09:26→09:56)
[2023-03-24] MEDS: BUDESONIDE/FORMOTEROL FUMARATE 80-4.5 MCG (10.3 GM INHALER) IH SCH ×2 (09:27→22:54)
[2023-03-24] MEDS: METOPROLOL TARTRATE 25 MG TABLET (FP) PO SCH ×3 (09:27→21:13)
[2023-03-24] MEDS: ASCORBIC ACID 500 MG TABLET (FP) PO SCH ×2 (09:27→09:56)
[2023-03-24] MEDS: LOSARTAN POTASSIUM 50 MG TABLET PO SCH ×2 (09:27→09:57)
[2023-03-24] MEDS: FERROUS SO4 325 MG TABLET (FP) PO SCH ×2 (09:27→09:56)
[2023-03-24] MEDS ORDERED: PANTOPRAZOLE 40 MG TABLET PO SCH (10:00)
[2023-03-24] MEDS ORDERED: PANTOPRAZOLE SODIUM 40 MG VIAL IVPUSH SCH (10:00)
[2023-03-24] MEDS: ATORVASTATIN CA 10 MG TABLET (FP) PO SCH (21:13)
[2023-03-24] MEDS ORDERED: DOCUSATE SODIUM 100 MG CAPSULE (FP) PO SCH (22:00)
[2023-03-24 22:05] LABS: BASO % 0.4 % (0-2.0); EOS % 3.4 % (0-4.5); HEMATOCRIT 28.8 % (32.4-45.2); HEMOGLOBIN 9.2 GM/dL (10.7-15.3); LYMPH % 19.4 % (8-40); MCHC 31.9 g/dl (32.0-36.0); MEAN CELL VOLUME 78.4 fl (80-96); MEAN PLT VOLUME 7.9 fl (7.5-11.1); MONO % 12.7 % (3.8-10.2); NEUT % 64.1 % (42.8-82.8); PLATELET COUNT 418 10^3/uL (134-434); RBC 3.68 M/mm3 (3.60-5.2); RDW 23.9 % (11.6-15.6); WHITE BLOOD COUNT 7.8 K/mm3 (4.0-10.0)
[2023-03-24 22:22] LABS: POTASSIUM 3.4 mmol/L (3.5-5.1)
[2023-03-24 22:24] LABS: CALCIUM 8.5 mg/dL (8.5-10.1)
[2023-03-24 22:25] LABS: BLOOD UREA NITROGEN 7.8 mg/dL (7-18)
[2023-03-24 22:28] LABS: CREATININE 0.5 mg/dL (0.55-1.3)
[2023-03-24] MEDS: MECLIZINE HCL 12.5 MG TABLET PO SCH (22:55)
[2023-03-24] MEDS: AMITRIPTYLINE HCL 10 MG TABLET PO SCH (23:11)
[2023-03-24 23:34] LABS: ANISOCYTOSIS 3+; MACROCYTOSIS 1+; OVALOCYTE 1+
[2023-03-25] MEDS ORDERED: POTASSIUM CHLORIDE ORAL LIQUID 20 MEQ/15 ML PO ONE (00:06)
[2023-03-25] MEDS: MECLIZINE HCL 12.5 MG TABLET PO SCH ×4 (05:05→22:47)
[2023-03-25] MEDS: METOPROLOL TARTRATE 25 MG TABLET (FP) PO SCH ×2 (09:12→22:42)
[2023-03-25] MEDS: FERROUS SO4 325 MG TABLET (FP) PO SCH (09:12)
[2023-03-25] MEDS: levETIRAcetam 500 MG TABLET (FP) PO SCH ×2 (09:12→22:42)
[2023-03-25] MEDS: ASCORBIC ACID 500 MG TABLET (FP) PO SCH (09:12)
[2023-03-25] MEDS: LOSARTAN POTASSIUM 50 MG TABLET PO SCH (09:13)
[2023-03-25] MEDS: POLYETHYLENE GLYCOL (HEALTHYLAX) 3350 17 GM PACKET PO SCH (09:13)
[2023-03-25] MEDS: BUDESONIDE/FORMOTEROL FUMARATE 80-4.5 MCG (10.3 GM INHALER) IH SCH ×2 (09:19→22:50)
[2023-03-25 10:51] LABS: BASO % 0.4 % (0-2.0); EOS % 2.4 % (0-4.5); HEMATOCRIT 31.9 % (32.4-45.2); HEMOGLOBIN 10.2 GM/dL (10.7-15.3); LYMPH % 14.1 % (8-40); MCH 25.1 pg (25.7-33.7); MCHC 31.9 g/dl (32.0-36.0); MEAN CELL VOLUME 78.4 fl (80-96); MEAN PLT VOLUME 7.9 fl (7.5-11.1); MONO % 8.8 % (3.8-10.2); NEUT % 74.3 % (42.8-82.8); PLATELET COUNT 464 10^3/uL (134-434); RBC 4.07 M/mm3 (3.60-5.2); RDW 23.7 % (11.6-15.6)
[2023-03-25 10:54] LABS: POTASSIUM 3.6 mmol/L (3.5-5.1)
[2023-03-25 11:00] LABS: CALCIUM 8.9 mg/dL (8.5-10.1)
[2023-03-25 11:01] LABS: ALBUMIN 3.2 g/dl (3.4-5.0); BLOOD UREA NITROGEN 6.5 mg/dL (7-18)
[2023-03-25 11:04] LABS: CREATININE 0.6 mg/dL (0.55-1.3)
[2023-03-25 11:06] LABS: TOT PROT 6.5 g/dl (6.4-8.2)
[2023-03-25] MEDS: ATORVASTATIN CA 10 MG TABLET (FP) PO SCH (22:42)
[2023-03-25] MEDS: AMITRIPTYLINE HCL 10 MG TABLET PO SCH (22:42)
[2023-03-26] MEDS: MECLIZINE HCL 12.5 MG TABLET PO SCH ×4 (05:55→18:00)
[2023-03-26 08:56] LABS: HEMATOCRIT 32.2 % (32.4-45.2); HEMOGLOBIN 10.3 GM/dL (10.7-15.3); MCH 25.3 pg (25.7-33.7); MEAN CELL VOLUME 79.1 fl (80-96); MEAN PLT VOLUME 7.5 fl (7.5-11.1); PLATELET COUNT 496 10^3/uL (134-434); RBC 4.08 M/mm3 (3.60-5.2); WHITE BLOOD COUNT 7.9 K/mm3 (4.0-10.0)
[2023-03-26 09:28] LABS: POTASSIUM 3.4 mmol/L (3.5-5.1)
[2023-03-26] MEDS: LOSARTAN POTASSIUM 50 MG TABLET PO SCH (09:30)
[2023-03-26] MEDS: FERROUS SO4 325 MG TABLET (FP) PO SCH (09:30)
[2023-03-26] MEDS: POLYETHYLENE GLYCOL (HEALTHYLAX) 3350 17 GM PACKET PO SCH (09:30)
[2023-03-26] MEDS: levETIRAcetam 500 MG TABLET (FP) PO SCH ×2 (09:30→21:28)
[2023-03-26] MEDS: METOPROLOL TARTRATE 25 MG TABLET (FP) PO SCH ×2 (09:30→21:28)
[2023-03-26] MEDS: ASCORBIC ACID 500 MG TABLET (FP) PO SCH (09:31)
[2023-03-26 09:41] LABS: BLOOD UREA NITROGEN 6.1 mg/dL (7-18)
[2023-03-26 09:44] LABS: CALCIUM 8.7 mg/dL (8.5-10.1); CREATININE 0.6 mg/dL (0.55-1.3); PHOSPHOROUS 3.7 mg/dL (2.5-4.9)
[2023-03-26] MEDS: BUDESONIDE/FORMOTEROL FUMARATE 80-4.5 MCG (10.3 GM INHALER) IH SCH ×2 (09:48→21:30)
[2023-03-26] MEDS ORDERED: POTASSIUM CHLORIDE TABS 20 MEQ TABLET.ER (FP) PO ONE (15:13)
[2023-03-26] MEDS: AMITRIPTYLINE HCL 10 MG TABLET PO SCH (21:28)
[2023-03-26] MEDS: ATORVASTATIN CA 10 MG TABLET (FP) PO SCH (21:28)
[2023-03-27] MEDS: MECLIZINE HCL 12.5 MG TABLET PO SCH ×4 (00:38→23:35)
[2023-03-27] MEDS: METOPROLOL TARTRATE 25 MG TABLET (FP) PO SCH ×2 (08:59→21:54)
[2023-03-27] MEDS: POLYETHYLENE GLYCOL (HEALTHYLAX) 3350 17 GM PACKET PO SCH (08:59)
[2023-03-27] MEDS: levETIRAcetam 500 MG TABLET (FP) PO SCH ×2 (08:59→21:53)
[2023-03-27] MEDS: FERROUS SO4 325 MG TABLET (FP) PO SCH (08:59)
[2023-03-27] MEDS: ASCORBIC ACID 500 MG TABLET (FP) PO SCH (08:59)
[2023-03-27] MEDS: LOSARTAN POTASSIUM 50 MG TABLET PO SCH (08:59)
[2023-03-27] MEDS: BUDESONIDE/FORMOTEROL FUMARATE 80-4.5 MCG (10.3 GM INHALER) IH SCH ×2 (09:00→21:57)
[2023-03-27 09:18] LABS: BASO % 0.5 % (0-2.0); EOS % 4.4 % (0-4.5); HEMOGLOBIN 10.5 GM/dL (10.7-15.3); LYMPH % 19.6 % (8-40); MCH 25.5 pg (25.7-33.7); MEAN CELL VOLUME 79.7 fl (80-96); MEAN PLT VOLUME 7.5 fl (7.5-11.1); MONO % 11.7 % (3.8-10.2); NEUT % 63.8 % (42.8-82.8); PLATELET COUNT 508 10^3/uL (134-434); RBC 4.14 M/mm3 (3.60-5.2); RDW 24.6 % (11.6-15.6); WHITE BLOOD COUNT 7.6 K/mm3 (4.0-10.0)
[2023-03-27 10:43] LABS: CALCIUM 8.7 mg/dL (8.5-10.1); POTASSIUM 4.3 mmol/L (3.5-5.1)
[2023-03-27 10:48] LABS: CREATININE 0.6 mg/dL (0.55-1.3)
[2023-03-27 14:35] VITALS: BMI 27.1
[2023-03-27] MEDS: ATORVASTATIN CA 10 MG TABLET (FP) PO SCH (21:53)
[2023-03-27] MEDS: AMITRIPTYLINE HCL 10 MG TABLET PO SCH (21:54)
[2023-03-28] MEDS: MECLIZINE HCL 12.5 MG TABLET PO SCH ×3 (05:47→16:44)
[2023-03-28] MEDS: LOSARTAN POTASSIUM 50 MG TABLET PO SCH (09:56)
[2023-03-28] MEDS: levETIRAcetam 500 MG TABLET (FP) PO SCH (09:56)
[2023-03-28] MEDS: POLYETHYLENE GLYCOL (HEALTHYLAX) 3350 17 GM PACKET PO SCH (09:56)
[2023-03-28] MEDS: ASCORBIC ACID 500 MG TABLET (FP) PO SCH (09:56)
[2023-03-28] MEDS: FERROUS SO4 325 MG TABLET (FP) PO SCH (09:56)
[2023-03-28] MEDS: METOPROLOL TARTRATE 25 MG TABLET (FP) PO SCH (09:57)
[2023-03-28] MEDS: BUDESONIDE/FORMOTEROL FUMARATE 80-4.5 MCG (10.3 GM INHALER) IH SCH (09:58)
[2023-03-28 16:23] VITALS: BP 117/75; PULSE 67; RESP 17; TEMP 98.1
== END 2023-03-28 17:10 | DRG 378 ==
LOC: JER 23:58 → JERBED 03-24 02:57 → J6S 03-24 05:44 → OBSVTOIN 03-25 13:03
PROVIDERS: ADMIT Internal Medicine; ATTEND Internal Medicine
PROC: 30233N1 Transfusion of Nonautologous Red Blood Cells into Peripheral Vein, Percutaneous Approach (ICD-10-PCS; principal; 2023-03-24)
DX: K92.2 Gastrointestinal hemorrhage, unspecified (principal); D62 Acute posthemorrhagic anemia; R44.3 Hallucinations, unspecified; I10 Essential (primary) hypertension; K74.60 Unspecified cirrhosis of liver; G40.909 Epilepsy, unspecified, not intractable, without status epilepticus; D75.839 Thrombocytosis, unspecified; K21.9 Gastro-esophageal reflux disease without esophagitis
CPT/HCPCS: 36415; 36430; 80048; 80053; 82272; 82728; 83540; 83550; 83615; 83735; 84100; 85025; 85027; 85045; 85610; 86850; 86900; 86901; 86922; 87522; 87635; 93005; 93010; 99285-25; G0378; P9038; P9058

== ENCOUNTER 2023-11-12 23:49 | Inpatient (IN) | payer OTHER, MEDICARE ==
[2023-11-13 00:08] VITALS: BMI 29.2
[2023-11-13 01:02] LABS: BASO % 0.2 % (0-2.0); HEMATOCRIT 30.2 % (32.4-45.2); HEMOGLOBIN 10.1 GM/dL (10.7-15.3); LYMPH % 8.5 % (8-40); MCH 30.7 pg (25.7-33.7); MCHC 33.3 g/dl (32.0-36.0); MEAN CELL VOLUME 92.4 fl (80-96); MEAN PLT VOLUME 9.1 fl (7.5-11.1); MONO % 5.7 % (3.8-10.2); NEUT % 85.6 % (42.8-82.8); PLATELET COUNT 243 10^3/uL (134-434); RBC 3.27 M/mm3 (3.60-5.2); RDW 14.2 % (11.6-15.6); WHITE BLOOD COUNT 13.4 K/mm3 (4.0-10.0)
[2023-11-13 01:13] LABS: INR 1.11 (0.83-1.09); PROTHROMBIN TIME (PATIENT) 12.5 SEC (9.7-13.0)
[2023-11-13 01:16] LABS: ACTIVATED PTT 24.1 SECONDS (25.2-36.5)
[2023-11-13 01:26] LABS: POTASSIUM 3.7 mmol/L (3.5-5.1)
[2023-11-13 01:28] LABS: ALBUMIN 3.2 g/dl (3.4-5.0); BLOOD UREA NITROGEN 70.3 mg/dL (7-18); CALCIUM 9.5 mg/dL (8.5-10.1); MAGNESIUM 1.5 mg/dL (1.8-2.4)
[2023-11-13 01:30] LABS: CREATININE 0.9 mg/dL (0.55-1.3)
[2023-11-13 01:32] LABS: BILIRUBIN,TOTAL 0.3 mg/dL (0.2-1); TOT PROT 5.9 g/dl (6.4-8.2)
[2023-11-13] MEDS ORDERED: PANTOPRAZOLE SODIUM 40 MG VIAL ONE (03:30)
[2023-11-13] MEDS: PANTOPRAZOLE SODIUM 40 MG VIAL IVPUSH ONE (03:35)
[2023-11-13] MEDS ORDERED: MAGNESIUM SULFATE IN WATER 2 GM/50 ML IVPB IVPB ONE (05:07)
[2023-11-13] MEDS ORDERED: D5-1/2NS+20 MEQ KCL - 20 MEQ/1,000 ML INFUS.BAG IV SCH (05:15)
[2023-11-13] MEDS: MAGNESIUM SULF 50% (8.12 MEQ/2 ML-1 GM VIAL) IVPB ONE (05:25)
[2023-11-13] MEDS ORDERED: IPRATROPIUM BR 0.02% 0.5 MG/2.5 ML VIAL.NEB. NEB PRN (07:57)
[2023-11-13] MEDS: D5-1/2NS+20 MEQ KCL - 20 MEQ/1,000 ML INFUS.BAG IV SCH (09:22)
[2023-11-13] MEDS: PANTOPRAZOLE SODIUM 40 MG VIAL IVPUSH SCH (09:22)
[2023-11-13] MEDS: levETIRAcetam 500 MG/5 ML INJECTION VIAL IVPB SCH (09:22)
[2023-11-13 09:24] LABS: BASO % 0.4 % (0-2.0); EOS % 0.1 % (0-4.5); HEMATOCRIT 28.9 % (32.4-45.2); HEMOGLOBIN 9.7 GM/dL (10.7-15.3); LYMPH % 10.2 % (8-40); MCHC 33.5 g/dl (32.0-36.0); MEAN CELL VOLUME 92.5 fl (80-96); MEAN PLT VOLUME 9.2 fl (7.5-11.1); MONO % 7.3 % (3.8-10.2); PLATELET COUNT 234 10^3/uL (134-434); RBC 3.12 M/mm3 (3.60-5.2); RDW 14.1 % (11.6-15.6); WHITE BLOOD COUNT 16.4 K/mm3 (4.0-10.0)
[2023-11-13 09:44] LABS: POTASSIUM 4.1 mmol/L (3.5-5.1)
[2023-11-13 09:54] LABS: BLOOD UREA NITROGEN 68.6 mg/dL (7-18); CALCIUM 8.8 mg/dL (8.5-10.1)
[2023-11-13 10:00] LABS: CREATININE 0.7 mg/dL (0.55-1.3)
[2023-11-13] MEDS ORDERED: METOPROLOL TARTRATE 5 MG/5 ML VIAL IVPB PRN (13:05)
[2023-11-13 14:42] LABS: URINE APPEARANCE CLEAR; URINE BILIRUBIN NEGATIVE (NEGATIVE); URINE COLOR YELLOW; URINE GLUCOSE (UA) NEGATIVE (NEGATIVE); URINE KETONE NEGATIVE (NEGATIVE); URINE LEUK ESTERASE NEGATIVE (NEGATIVE); URINE NITRITE NEGATIVE (NEGATIVE); URINE PROTEIN NEGATIVE (NEGATIVE); URINE UROBILINOGEN 0.2 mg/dL (0.2-1.0)
[2023-11-13] MEDS: SODIUM PHOSPHATE/NA BIPHOS 133 ML ENEMA RC ONE (14:55)
[2023-11-13] MEDS: D5-1/2NS+20 MEQ KCL - 20 MEQ/1,000 ML INFUS.BAG IV ONE (14:55)
[2023-11-13] MEDS: PIPERACILLIN/TAZOB 3.375 GM 3.375 GM in DEXTROSE 5%-WATER - 50 ML IVPB SCH (22:22)
[2023-11-14 09:38] LABS: BASO % 0.3 % (0-2.0); EOS % 0.3 % (0-4.5); HEMATOCRIT 25.1 % (32.4-45.2); LYMPH % 8.8 % (8-40); MCH 30.5 pg (25.7-33.7); MCHC 32.1 g/dl (32.0-36.0); MEAN CELL VOLUME 95.2 fl (80-96); MEAN PLT VOLUME 9.3 fl (7.5-11.1); MONO % 8.7 % (3.8-10.2); NEUT % 81.9 % (42.8-82.8); PLATELET COUNT 194 10^3/uL (134-434); RBC 2.63 M/mm3 (3.60-5.2); RDW 14.3 % (11.6-15.6); WHITE BLOOD COUNT 14.7 K/mm3 (4.0-10.0)
[2023-11-14] MEDS: POLYETHYLENE GLYCOL (HEALTHYLAX) 3350 17 GM PACKET PO SCH (10:25)
[2023-11-14 10:33] LABS: POTASSIUM 4.3 mmol/L (3.5-5.1)
[2023-11-14 10:46] LABS: ALBUMIN 2.9 g/dl (3.4-5.0); CALCIUM 8.5 mg/dL (8.5-10.1)
[2023-11-14 10:48] LABS: TOT PROT 5.7 g/dl (6.4-8.2)
[2023-11-14 10:50] LABS: CREATININE 0.7 mg/dL (0.55-1.3)
[2023-11-14 10:51] LABS: BILIRUBIN,TOTAL 0.3 mg/dL (0.2-1)
[2023-11-14 11:31] LABS: BLOOD UREA NITROGEN 35.7 mg/dL (7-18)
[2023-11-14] MEDS: CEFTRIAXONE 2 GM in DEXTROSE 5%-WATER 100 ML IVPB SCH (18:40)
[2023-11-14] MEDS: PIPERACILLIN/TAZOB 3.375 GM 3.375 GM in DEXTROSE 5%-WATER - 50 ML IVPB SCH (19:45)
[2023-11-15] MEDS: LORazepam 2 MG/ML SDV VIAL IVPUSH PRN (21:25)
[2023-11-16 09:42] LABS: BASO % 0.4 % (0-2.0); EOS % 2.5 % (0-4.5); HEMATOCRIT 21.6 % (32.4-45.2); HEMOGLOBIN 7.3 GM/dL (10.7-15.3); LYMPH % 12.3 % (8-40); MCH 31.5 pg (25.7-33.7); MEAN CELL VOLUME 92.9 fl (80-96); MEAN PLT VOLUME 8.8 fl (7.5-11.1); MONO % 10.4 % (3.8-10.2); NEUT % 74.4 % (42.8-82.8); PLATELET COUNT 223 10^3/uL (134-434); RBC 2.33 M/mm3 (3.60-5.2); RDW 13.9 % (11.6-15.6); WHITE BLOOD COUNT 8.4 K/mm3 (4.0-10.0)
[2023-11-16 09:43] LABS: INR 1.1 (0.83-1.09); PROTHROMBIN TIME (PATIENT) 12.4 SEC (9.7-13.0)
[2023-11-16 10:00] LABS: POTASSIUM 3.5 mmol/L (3.5-5.1)
[2023-11-16 10:06] LABS: CALCIUM 8.5 mg/dL (8.5-10.1)
[2023-11-16 10:07] LABS: BLOOD UREA NITROGEN 9.1 mg/dL (7-18)
[2023-11-16 10:11] LABS: BILIRUBIN,TOTAL 0.3 mg/dL (0.2-1); CREATININE 0.5 mg/dL (0.55-1.3); TOT PROT 5.8 g/dl (6.4-8.2)
[2023-11-16] MEDS: PANTOPRAZOLE 40 MG TABLET PO SCH (11:47)
[2023-11-16] MEDS: FERROUS SO4 325 MG TABLET (FP) PO SCH (11:47)
[2023-11-16] MEDS: CEPHALEXIN MONOHYDRATE 500 MG CAPSULE (UD) PO SCH (11:47)
[2023-11-16] MEDS: levETIRAcetam 500 MG TABLET (FP) PO SCH (11:47)
[2023-11-16] MEDS: ASCORBIC ACID 500 MG TABLET (FP) PO SCH (11:48)
[2023-11-16] MEDS: METOPROLOL TARTRATE 25 MG TABLET (FP) PO SCH (11:48)
[2023-11-16] MEDS ORDERED: QUEtiapine FUMARATE 25 MG TABLET PO SCH (12:15)
[2023-11-16] MEDS: LORazepam 2 MG/ML SDV VIAL IM PRN (16:16)
[2023-11-16] MEDS: ATORVASTATIN CA 10 MG TABLET (FP) PO SCH (21:34)
[2023-11-17] MEDS: IRON SUCROSE INJECTION 200 MG in SODIUM CHLORIDE 100 ML IVPB ONE (07:06)
[2023-11-17] MEDS ORDERED: CYANOCOBALAMIN (VITAMIN B-12) 1000 MCG/1 ML VIAL IM ONE (11:30)
[2023-11-17] MEDS: CYANOCOBALAMIN (VITAMIN B-12) 1000 MCG/1 ML VIAL IM ONE (13:56)
[2023-11-18] MEDS: IRON SUCROSE INJECTION 200 MG in SODIUM CHLORIDE 100 ML IVPB ONE (06:40)
[2023-11-18 07:54] LABS: BASO % 0.4 % (0-2.0); EOS % 5.1 % (0-4.5); HEMATOCRIT 27.3 % (32.4-45.2); HEMOGLOBIN 9.3 GM/dL (10.7-15.3); LYMPH % 15.4 % (8-40); MCH 32.1 pg (25.7-33.7); MEAN CELL VOLUME 94.5 fl (80-96); MEAN PLT VOLUME 8.5 fl (7.5-11.1); MONO % 11.1 % (3.8-10.2); PLATELET COUNT 250 10^3/uL (134-434); RBC 2.89 M/mm3 (3.60-5.2); RDW 13.9 % (11.6-15.6); WHITE BLOOD COUNT 8.1 K/mm3 (4.0-10.0)
[2023-11-18 08:02] LABS: POTASSIUM 3.8 mmol/L (3.5-5.1)
[2023-11-18 08:04] LABS: CALCIUM 8.6 mg/dL (8.5-10.1)
[2023-11-18 08:06] LABS: BLOOD UREA NITROGEN 6.3 mg/dL (7-18)
[2023-11-18 08:08] LABS: CREATININE 0.5 mg/dL (0.55-1.3)
[2023-11-18 08:10] LABS: BILIRUBIN,TOTAL 0.6 mg/dL (0.2-1); TOT PROT 5.7 g/dl (6.4-8.2)
[2023-11-18 10:04] VITALS: RESP 18
[2023-11-18 14:26] VITALS: BP 112/66; PULSE 75; TEMP 98.4
== END 2023-11-18 17:29 | DRG 378 ==
LOC: JER 23:49 → JERBED 11-13 05:07 → J8W 11-13 06:44 → OBSVTOIN 11-13 12:09
PROVIDERS: ADMIT Internal Medicine; ATTEND Internal Medicine
PROC: 30233N1 Transfusion of Nonautologous Red Blood Cells into Peripheral Vein, Percutaneous Approach (ICD-10-PCS; principal; 2023-11-16)
DX: K92.0 Hematemesis (principal); N39.0 Urinary tract infection, site not specified; I10 Essential (primary) hypertension; I08.1 Rheumatic disorders of both mitral and tricuspid valves; E78.5 Hyperlipidemia, unspecified; I25.10 Atherosclerotic heart disease of native coronary artery without angina pectoris; K44.9 Diaphragmatic hernia without obstruction or gangrene; K21.9 Gastro-esophageal reflux disease without esophagitis; B96.1 Klebsiella pneumoniae [K. pneumoniae] as the cause of diseases classified elsewhere; F03.90 Unspecified dementia, unspecified severity, without behavioral disturbance, psychotic disturbance, mood disturbance, and anxiety; J45.909 Unspecified asthma, uncomplicated; D72.829 Elevated white blood cell count, unspecified; E83.42 Hypomagnesemia; D50.0 Iron deficiency anemia secondary to blood loss (chronic); R00.0 Tachycardia, unspecified; Z88.0 Allergy status to penicillin; E66.9 Obesity, unspecified; Z68.29 Body mass index [BMI] 29.0-29.9, adult
CPT/HCPCS: 0241U-QW; 36415; 36430; 70450-TC; 71045-TC-FY; 74174-TC; 76705-TC; 80048; 80053; 81003; 82272; 82550; 82728; 82962; 83540; 83550; 83690; 83735; 84484; 85025; 85610; 85730; 86850; 86900; 86901; 86922; 87040; 87086; 87186; 87635; 93005; 93010; 99285-25; G0378; J1756; P9038; P9058

== ENCOUNTER 2023-11-25 15:36 | Observation (INO) | payer OTHER, MEDICARE ==
[2023-11-25 17:28] LABS: INR 1.03 (0.83-1.09); PROTHROMBIN TIME (PATIENT) 11.6 SEC (9.7-13.0)
[2023-11-25 17:31] LABS: ACTIVATED PTT 28.8 SECONDS (25.2-36.5)
[2023-11-25 17:40] LABS: BASO % 0.4 % (0-2.0); EOS % 3.5 % (0-4.5); HEMATOCRIT 29.1 % (32.4-45.2); HEMOGLOBIN 9.5 GM/dL (10.7-15.3); LYMPH % 24.5 % (8-40); MCH 31.1 pg (25.7-33.7); MCHC 32.7 g/dl (32.0-36.0); MEAN CELL VOLUME 95.4 fl (80-96); MEAN PLT VOLUME 7.9 fl (7.5-11.1); MONO % 10.3 % (3.8-10.2); NEUT % 61.3 % (42.8-82.8); PLATELET COUNT 374 10^3/uL (134-434); POTASSIUM 3.9 mmol/L (3.5-5.1); RBC 3.05 M/mm3 (3.60-5.2); RDW 15.5 % (11.6-15.6); RETICULOCYTES 3.77 % (0.5-1.5); WHITE BLOOD COUNT 6.9 K/mm3 (4.0-10.0)
[2023-11-25 17:43] LABS: CALCIUM 8.9 mg/dL (8.5-10.1)
[2023-11-25 17:44] LABS: BLOOD UREA NITROGEN 5.7 mg/dL (7-18)
[2023-11-25 17:47] LABS: CREATININE 0.6 mg/dL (0.55-1.3)
[2023-11-25 17:49] LABS: BILIRUBIN,TOTAL 0.2 mg/dL (0.2-1); TOT PROT 5.8 g/dl (6.4-8.2)
[2023-11-25 23:01] VITALS: BMI 28.3
[2023-11-26 03:10] LABS: HEMOGLOBIN 9.2 GM/dL (10.7-15.3); MCH 31.5 pg (25.7-33.7); MCHC 32.9 g/dl (32.0-36.0); MEAN CELL VOLUME 95.7 fl (80-96); MEAN PLT VOLUME 7.6 fl (7.5-11.1); PLATELET COUNT 348 10^3/uL (134-434); RBC 2.93 M/mm3 (3.60-5.2); RDW 15.4 % (11.6-15.6)
[2023-11-26] MEDS ORDERED: IPRATROPIUM BR 0.02% 0.5 MG/2.5 ML VIAL.NEB. NEB PRN (06:36)
[2023-11-26] MEDS ORDERED: SENNOSIDES 8.6MG TABLET (FP) PO PRN (06:36)
[2023-11-26] MEDS: MECLIZINE HCL 12.5 MG TABLET PO SCH (10:59)
[2023-11-26] MEDS: PANTOPRAZOLE 40 MG TABLET PO SCH (10:59)
[2023-11-26] MEDS: POLYETHYLENE GLYCOL (HEALTHYLAX) 3350 17 GM PACKET PO SCH (11:00)
[2023-11-26] MEDS: METOPROLOL TARTRATE 25 MG TABLET (FP) PO SCH (11:01)
[2023-11-26] MEDS: levETIRAcetam 500 MG TABLET (FP) PO SCH (11:01)
[2023-11-26] MEDS: BUDESONIDE/FORMOTEROL FUMARATE 80-4.5 MCG (10.3 GM INHALER) IH SCH (11:02)
[2023-11-26] MEDS: ASCORBIC ACID 500 MG TABLET (FP) PO SCH (11:02)
[2023-11-26] MEDS: FERROUS SO4 325 MG TABLET (FP) PO SCH (12:15)
[2023-11-26 12:22] LABS: POTASSIUM 4.4 mmol/L (3.5-5.1)
[2023-11-26 12:25] LABS: CALCIUM 8.9 mg/dL (8.5-10.1)
[2023-11-26 12:26] LABS: BLOOD UREA NITROGEN 6.2 mg/dL (7-18); MAGNESIUM 2.1 mg/dL (1.8-2.4)
[2023-11-26 12:29] LABS: CREATININE 0.6 mg/dL (0.55-1.3); PHOSPHOROUS 2.5 mg/dL (2.5-4.9)
[2023-11-26] MEDS: DOCUSATE SODIUM 100 MG CAPSULE (FP) PO SCH (21:06)
[2023-11-27 12:01] LABS: BASO % 0.8 % (0-2.0); EOS % 4.1 % (0-4.5); HEMOGLOBIN 9.8 GM/dL (10.7-15.3); LYMPH % 23.1 % (8-40); MCH 31.2 pg (25.7-33.7); MCHC 32.7 g/dl (32.0-36.0); MEAN CELL VOLUME 95.3 fl (80-96); MEAN PLT VOLUME 7.6 fl (7.5-11.1); MONO % 12.1 % (3.8-10.2); NEUT % 59.9 % (42.8-82.8); PLATELET COUNT 365 10^3/uL (134-434); RBC 3.14 M/mm3 (3.60-5.2); RDW 15.8 % (11.6-15.6)
[2023-11-28 14:58] VITALS: RESP 19; TEMP 97.9
[2023-11-28 17:39] VITALS: BP 101/86; PULSE 78
== END 2023-11-28 18:30 ==
LOC: JER 15:36 → JERBED 20:29 → J7W 22:39
PROVIDERS: ADMIT Internal Medicine; ATTEND Internal Medicine
DX: K92.2 Gastrointestinal hemorrhage, unspecified (principal); D50.9 Iron deficiency anemia, unspecified; I10 Essential (primary) hypertension; E78.5 Hyperlipidemia, unspecified; I25.10 Atherosclerotic heart disease of native coronary artery without angina pectoris; R42 Dizziness and giddiness; J45.909 Unspecified asthma, uncomplicated; Z90.49 Acquired absence of other specified parts of digestive tract; K92.9 Disease of digestive system, unspecified; Z86.011 Personal history of benign neoplasm of the brain; K21.9 Gastro-esophageal reflux disease without esophagitis; Z86.73 Personal history of transient ischemic attack (TIA), and cerebral infarction without residual deficits; Z85.850 Personal history of malignant neoplasm of thyroid
CPT/HCPCS: 36415; 71045-TC-FY; 80048; 80053; 82272; 82550; 82962; 83735; 84100; 84484; 85025; 85027; 85045; 85610; 85730; 86850; 86900; 86901; 87635; 93005; 93010; 99285-25; G0378